=== PATIENT | male | born 1965 | race Caucasian/White ===

== ENCOUNTER 2019-09-30 15:03 | Inpatient (IN) | payer OTHER ==
[~2019-09-30] VITALS: Ht 167.6 cm; Wt 53.5 kg
--- NOTE | 2019-09-30 15:08 | NUR ---
ALEISHA HENSLEY FROM [facility] FOR SEVERE ANEMIA. H&H 6.0, TO ER BED 8, HOOKED TO MONITOR, PATIENT NOTED W TRACHEOSTOMY CONNECTED TO COOL AEROSOL AT 5LPM OF O2, O2 SATURATION AT 100%, WITH G-TUBE, WITH BELLAMY CATHETER, NOTED W R HAND 22G IV PERIOHERAL LINE, PATENT. PROVIDED W WARM BLANKET. DR BARCLAY AT BEDSIDE
--- NOTE | 2019-09-30 15:13 | NUR ---
CALLED FOR TELE BED AND SUBMITTED MOVE SHEET TO ADMITTING
[2019-09-30] MEDS ORDERED: PANTOPRAZOLE 40 MG VIAL ONE (15:22)
[2019-09-30 15:28] LABS: BASOPHILS % (AUTO) 0.2 % (0.0-2.0); EOSINOPHILS % (AUTO) 0.8 % (0.0-6.0); HEMATOCRIT 23 % (39-51); HEMOGLOBIN 7.2 g/dL (13.5-17.5); LYMPHOCYTES # (AUTO) 0.4 /CMM (0.8-4.8); LYMPHOCYTES % (AUTO) 4.3 % (20.0-44.0); MEAN CORPUSCULAR HGB CONC 31 g/dl (31.0-36.0); MEAN CORPUSCULAR VOLUME 87 fL (80-96); MONOCYTES # (AUTO) 0.4 /CMM (0.1-1.30); MONOCYTES % (AUTO) 4.1 % (2.0-12.0); NEUTROPHILS % (AUTO) 90.6 % (43.0-81.0); PLATELET COUNT (AUTO) 580 /CMM (150-450); RED BLOOD CELL COUNT(AUTO) 2.64 MIL/uL (4.5-6.0); WHITE BLOOD COUNT (AUTO) 8.8 K/uL (4.3-11.0)
[2019-09-30] MEDS ORDERED: IV NS 0.9% 500 ML BAG IV ONE (15:30)
[2019-09-30] MEDS ORDERED: PANTOPRAZOLE 40 MG VIAL IV ONE (15:30)
[2019-09-30 15:41] LABS: ALBUMIN 2.7 g/dL (3.4-5.0); BILIRUBIN,DIRECT 0.1 mg/dL (0.0-0.2); BILIRUBIN,TOTAL 0.4 mg/dL (0.2-1.0); CALCIUM, SERUM 9.7 mg/dL (8.5-10.1); CREATININE 2.7 mg/dL (0.6-1.3); POTASSIUM 4.5 mmol/L (3.5-5.1); TOTAL PROTEIN, SERUM 7.2 g/dL (6.4-8.2)
[2019-09-30] MEDS ORDERED: ACET325T53 GT (15:46)
[2019-09-30] MEDS ORDERED: CLON0.5T GT (15:46)
[2019-09-30] MEDS ORDERED: FOLI0.8T2 GT (15:46)
[2019-09-30] MEDS ORDERED: PRED5TAB48 GT (15:46)
[2019-09-30] MEDS ORDERED: FERR325T6 GT (15:46)
[2019-09-30] MEDS ORDERED: GABA250S GT (15:46)
[2019-09-30] MEDS ORDERED: LIDOCAINE PATCH TP (15:46)
[2019-09-30] MEDS ORDERED: AMIN887L GT (15:46)
[2019-09-30] MEDS ORDERED: NUT.237L67 GT (15:46)
[2019-09-30] MEDS ORDERED: TRAM50TA2 GT (15:46)
[2019-09-30] MEDS ORDERED: ACET-2605 GT (15:46)
[2019-09-30] MEDS ORDERED: DOCU50LI GT (15:46)
[2019-09-30] MEDS ORDERED: LABE200T5 GT (15:46)
[2019-09-30] MEDS ORDERED: ZINC220T4 GT (15:46)
[2019-09-30] MEDS ORDERED: ASCO500T10 GT (15:46)
[2019-09-30] MEDS ORDERED: EPOE40007 IJ (15:46)
[2019-09-30] MEDS ORDERED: MAGN400O6 GT (15:46)
[2019-09-30] MEDS ORDERED: SENN-261 GT (15:46)
[2019-09-30] MEDS ORDERED: IPRA4AER IH ×2 (15:46)
[2019-09-30] MEDS ORDERED: CYCL5.5D3 GT (15:46)
[2019-09-30] MEDS ORDERED: APIX2.5T GT (15:46)
[2019-09-30] MEDS ORDERED: BISA10SU61 RC (15:46)
[2019-09-30] MEDS ORDERED: CHLO473M2 MM (15:46)
[2019-09-30] MEDS ORDERED: NA P133E RC (15:46)
[2019-09-30] MEDS ORDERED: QUERCETIN GT (15:46)
[2019-09-30] MEDS ORDERED: LEVE1000 GT (15:46)
--- NOTE | 2019-09-30 15:57 | NUR ---
GOT BED 319 NURSE LUCILLE ROMERO
--- NOTE | 2019-09-30 15:58 | NUR ---
TELEPHONE CONSENT FROM BROTHER ARASH NG FOR BLOOD TRANSFUSION.
[2019-09-30] MEDS ORDERED: MAGNESIUM HYDROXIDE 30 ML UDC GT PRN (16:30)
[2019-09-30] MEDS ORDERED: MISCELLANEOUS MED 1 EA EA GT PRN (16:30)
[2019-09-30] MEDS ORDERED: MAGNESIUM HYDROXIDE 30 ML UDC PO PRN (16:30)
[2019-09-30] MEDS ORDERED: MAG HYDROX/AL HYDROX/SIMETH 30 ML UDC GT PRN (16:30)
[2019-09-30] MEDS ORDERED: NA PHOS,M-B/NA PHOS,DI-BA 1 EA ENEMA RC PRN ×2 (16:30→18:46)
[2019-09-30] MEDS ORDERED: HYDROCODONE/APAP 5/325MG 1 EACH TABLET PO PRN (16:30)
[2019-09-30] MEDS ORDERED: Z GUARD REMEDY 2 OZ OINT TP PRN (16:30)
[2019-09-30] MEDS ORDERED: Medication Not On Formulary EA (Ipratropium/Albuterol Sulfate (Combivent Respimat 20-100 IH PRN (16:30)
[2019-09-30] MEDS ORDERED: ONDANSETRON HCL/PF 4 MG/2 ML VIAL IVP PRN (16:30)
[2019-09-30] MEDS ORDERED: BISACODYL SUPP (10 MG) 10 MG/SUPP.RECT SUPP.RECT RC PRN (16:30)
[2019-09-30] MEDS ORDERED: ZOLPIDEM TARTRATE 5 MG TABLET PO PRN (16:30)
--- NOTE | 2019-09-30 16:40 | NUR ---
SPOKE TO ANYI (NURSE NUCLEAR POWERPLANT MECHANIC) OF [facility]. [phone]
--- NOTE | 2019-09-30 16:45 | NUR ---
REPORT GIVEN TO DINAH SALDANA OF TELE UNIT
[2019-09-30] MEDS: APIXABAN 2.5 MG TABLET GT SCH (17:00)
[2019-09-30 17:30] VITALS: BP 160/94
--- NOTE | 2019-09-30 17:30 | NUR ---
TELE/PRESCHOOL PROGRAM DIRECTOR NOTES Patient in bed, A&O x 1. Admitted for severe anemia (H/H 6.0/20 on 09/29/19) from [facility], under Dr. Granger Incomprehensible responses upon tactile and verbal stimulation. Tracheostomy noted, portex #7. Breathing non-labored and even on 5L oxygen, saturating well. No respiratory distress noted. On tele monitor, Sinus Bradycardia HR 52 noted. IV access noted on the right hand #22, infusing NS @75 ml/hr. 2nd IV access noted on the right AC #18 for blood transfusion, patent and intact, and flushing well. No cardiac distress at this time. G-tube in place, no gastric residual noted. Mccloud in place, draining clear yellow urine well. Skin assessment done, photos were placed in the chart. Stage 4 sacral ulcer noted POA, placed mepilex, C/D/I. Wound consult ordered. Closed AV shunt on the left upper arm with scarring noted, do not use BP on this arm. Per ED, patient not receiving HD at this time. Awaiting for blood transfusion orders. Will continue to monitor for any unstable conditions.
[2019-09-30] MEDS ORDERED: ACETAMINOPHEN 650 MG/20.3 ML UDC GT PRN (18:30)
[2019-09-30] MEDS ORDERED: LABETALOL HCL 200 MG TABLET GT SCH (18:49)
[2019-09-30] MEDS ORDERED: hydrALAZINE HCL IV 20 MG VIAL IV PRN (19:00)
--- NOTE | 2019-09-30 19:00 | NUR ---
TELE/RN CLOSING NOTES Patient in bed, A&O x 1. No s/s of pain/discomfort at this time. Breathing non-labored and even on 5L oxygen, saturating well, no SOB noted. Tracheostomy noted, portex #7. On tele monitor, Sinus Bradycardia HR 55 noted. IV access noted on the right hand #22, infusing NS @75 ml/hr. 2nd IV access noted on the right AC #18 for blood transfusion, patent and intact, and flushing well. No cardiac distress at this time. G-tube in place, patent and intact. Mccloud in place, draining clear yellow urine well, output of 500cc noted. Awaiting for blood transfusion orders. Will endorse to shift superintendent nurse.
--- NOTE | 2019-09-30 19:02 | NUR ---
HELD ELIQUIS DUE TO LOW HGB/HCT 7.05/30 AND IS FOR BLOOD TRANSFUSION.
[2019-09-30] MEDS: ASCORBIC ACID 500 MG TABLET GT SCH (19:28)
[2019-09-30] MEDS: CHLORHEXIDINE GLUCONATE 15 ML UDC MM SCH (19:28)
[2019-09-30] MEDS: TRAMADOL HCL 50 MG TABLET GT SCH (19:29)
[2019-09-30] MEDS ORDERED: IPRATROPIUM NEB FS 0.5 MG/2.5 ML AMPUL.NEB NEB PRN (19:30)
[2019-09-30] MEDS ORDERED: IPRATROPIUM NEB FS 0.5 MG/2.5 ML AMPUL.NEB NEB SCH (19:30)
[2019-09-30] MEDS ORDERED: ALBUTEROL FS 2.5 MG/0.5 ML VIAL.NEB NEB PRN (19:30)
[2019-09-30] MEDS ORDERED: ALBUTEROL FS 2.5 MG/0.5 ML VIAL.NEB NEB SCH (19:30)
[2019-09-30] MEDS ORDERED: Medication Not On Formulary EA (Ipratropium/Albuterol Sulfate (Combivent Respimat 20-100 IH SCH (19:30)
--- NOTE | 2019-09-30 19:30 | NUR ---
telephone order supervisor opening note received patient in bed. a/ox1. patient is very limited in speaking, only few words ( no and cold). on oxygen via t-piece at 5l/min. portex #7. respirations are even and unlabored. no s/s resp distress. no s/s pain at this time. iv access in right hand #22 running ns@75ml/hr. another iv access in rac#18 patent and saline locked. gtube is present, no residual, flushed with no resistance, currently not on tube feeding. pichardo catheter is present, draining to gravity, urine is yellow and clear. bed is low and locked, hob elevated in semi fowlers, side rials up x2. call light within reach. will continue to monitor.
--- NOTE | 2019-09-30 19:50 | NUR ---
TELEMARKETING SALES REPRESENTATIVE NOTE FOLLOWED UP WITH DR. LEUNG ABOUT MEDICATIONS THAT THE PHARMACY INFORMED THAT ARE NOT IN STOCK. CYCLOSPORINE/ CHONDROITIN DROPS WELL EPOEITIN (RETACRIT). DR. LEUNG INFORMED TO ASKED DR. FRYE ABOUT RECOMMENDATIONS AND THAT HE DID NOT ORDER RETACRIT. WILL CALL DR. FRYE TO FOLLOW UP.
[2019-09-30 20:00] VITALS: BP 136/70
--- NOTE | 2019-09-30 20:18 | NUR ---
RT NOTE PT RECEIVED TRACHED ON T-PIECE @ 40% 5LPM. PT AWAKE. SX DONE, SMALL THICK WHITE YELLOW SECRETIONS NOTED. CONT. PULSE OX CONNECTED. NO DISTRESS NOTED. WILL MONITOR CLOSELY. Addendum: 09/30/19 at 2019 by ZEHRA RAJAN RT Amended: Links added.
[2019-09-30] MEDS: LABETALOL HCL (100MG) 100 MG TABLET GT SCH (20:49)
--- NOTE | 2019-09-30 21:14 | NUR ---
teletype or varitype keyboard operator note called automotive service consultant md dr. jamie wilson and asked to change nebulizer treatments of atrovent and ventolin to MDI treatments d/t patient is from SNF and did not get tested for covid 19. there is a concern to spread of virus if patient dos have it. informed patient dx for severe anemia. md telephone order ok to change to MDI for atrovent and ventolin. order read back noted and carried out. will continue to monitor.
--- NOTE | 2019-09-30 22:31 | NUR ---
telemetry nurse note Dr. Rush called and was made aware of medications that we do not have stocked for cyclosporibe/ chlondritin drops and epoeitin (retacrit). MD telephone recommendation to call SNF and have them deliver the medications. will call SNF to provide medications. also informed Dr. Rush that there is a order for blood transfusion. Dr. Rush advised against blood transfusion d/t patient has not active bleeding, aware there is an order to OB stool collection, awaiting a bowel movement to collect. hemoglobin is not less than 7 and the kidney function is not the best with BUN 103 and creatinine 2.7. will call resolution specialist MD and inform of Dr. Rush recommendation for no blood transfusion. called resolution specialist MD Dr. Resendiz to inform him Dr. Rush does not recommend blood transfusion d/t kidney function being BUN 103 and creatinine 2.7. also hemoglobin is not less than 7. telephone order no transfusion at this time. order read back noted and carried out.
[2019-09-30] MEDS: SENNOSIDES 8.6 MG TABLET GT SCH (22:43)
[2019-09-30] MEDS: clonazePAM 0.5 MG TABLET GT SCH (22:43)
[2019-10-01] VITALS (11 sets, daily range): BP systolic 135–160; BP diastolic 59–94
[2019-10-01] MEDS: NITROGLYCERIN 30 GM TUBE TP SCH ×4 (01:08→17:41)
[2019-10-01] MEDS ORDERED: IPRATROPIUM NEB FS 0.5 MG/2.5 ML AMPUL.NEB INH SCH (01:30)
[2019-10-01] MEDS: IPRATROPIUM BROMIDE 14 GM INHALER (or 12.9 GM) IH SCH ×3 (01:30→13:30)
[2019-10-01] MEDS ORDERED: ALBUTEROL FS 2.5 MG/0.5 ML VIAL.NEB IH SCH (01:30)
--- NOTE | 2019-10-01 01:34 | NUR ---
television news producer note Called [facility] to inform them Dr. Rush would like delivery of the medications: cyclosporine as well as retacrit. Spoke with SHANA Mcmahon. states they monica briones. will have next shift nurse follow up.
--- NOTE | 2019-10-01 01:53 | NUR ---
telegraph dispatcher note called nursing miller supervisor to provide medications ipratropium inhaler but nursing miller supervisor stated we do not carry in night locker. nonadministered throughout night. will continue to monitor.
[2019-10-01] MEDS: NEPRO 1,000 ML BOTTLE GT PRN (01:55)
--- NOTE | 2019-10-01 01:59 | NUR ---
RT NOTE MDI TX NOT AVAILABLE. RN ALISHA CELESTIN.
[2019-10-01] MEDS: clonazePAM 0.5 MG TABLET GT SCH ×3 (05:04→21:13)
--- NOTE | 2019-10-01 06:18 | NUR ---
television operator closing note patient in bed. a/ox1. remains on oxygen via t-piece at 5l/min. portex #7. respirations are even and unlabored. no resp distress noted. continous pulse ox at bedside. no s/s pain. iv access maintained in right hand #22 running ns@75ml/hr. another iv access in rac#18 patent and saline locked. gtube is running nepro @45ml/hr. pichardo catheter is maintained, output 1400ml. bed remains low and locked, hob elevated in semi fowlers, side rials up x2. call light within reach. will endorse to next shift
--- NOTE | 2019-10-01 07:21 | NUR ---
PRICING DIRECTOR OPENING NOTES RECEIVED PATIENT IN BED, ASLEEP. PATIENT ON OXYGEN VIA T-PIECE AT 5 LPM; PORTEX # 7. BREATHING IS EVEN AND UNLABORED; NO SOB PRESENT AT THIS TIME. NO S/S OF PAIN SUCH MOANING, FACIAL GRIMACING OR GUARDING. EXTERNAL [employer]CRE[employer] WITH A CURRENT READING OF NORMAL SINUS RHYTHM AT 62 BPM. R HAND IV ACCESS G # 22 INFUSING NS AT 75 MLS/HR AND RAC G#18 PRESENT AND INTACT. BELLAMY CATH IN PLACE DRAINING YELLOW URINE. G-TUBE INTACT INFUSING NEPHRO AT 45 MLS/HR. SAFETY PRECAUTIONS IN PLACE; BED IN LOW POSITION AND LOCKED, RAILS UP X2, CALL LIGHT WITHIN REACH. WILL CONTINUE TO MONITOR PATIENT.
[2019-10-01] MEDS: predniSONE 5 MG TABLET GT SCH (08:27)
[2019-10-01] MEDS: PANTOPRAZOLE 40 MG VIAL IV SCH (08:27)
[2019-10-01] MEDS: DOCUSATE SODIUM LIQ 100 MG/10 ML UDC GT SCH (08:27)
[2019-10-01] MEDS: TRAMADOL HCL 50 MG TABLET GT SCH ×2 (08:27→16:47)
[2019-10-01] MEDS: ASCORBIC ACID 500 MG TABLET GT SCH ×2 (08:27→16:47)
[2019-10-01] MEDS: LEVETIRACETAM SOL (5 ML) 100 MG/ML UDC GT SCH (08:27)
[2019-10-01] MEDS: ZINC SULFATE 220 MG CAPSULE GT SCH (08:27)
[2019-10-01] MEDS: VIT B CMPLX 3/FA/VIT C/BIOTIN 1 TAB TABLET GT SCH (08:27)
[2019-10-01] MEDS: CHLORHEXIDINE GLUCONATE 15 ML UDC MM SCH ×2 (08:28→16:47)
[2019-10-01] MEDS: APIXABAN 2.5 MG TABLET GT SCH ×2 (08:28→16:53)
[2019-10-01] MEDS: PROSOURCE / PROSTAT (PYXIS) 30 ML UDC GT SCH (08:28)
[2019-10-01] MEDS: LABETALOL HCL (100MG) 100 MG TABLET GT SCH ×2 (08:28→16:50)
[2019-10-01 09:09] LABS: CALCIUM, SERUM 9.1 mg/dL (8.5-10.1); CREATININE 2.4 mg/dL (0.6-1.3); MAGNESIUM 3.2 mg/dL (1.8-2.4); PHOSPHORUS 4.8 mg/dL (2.5-4.9); POTASSIUM 3.8 mmol/L (3.5-5.1)
[2019-10-01 09:11] LABS: BASOPHILS # (AUTO) 0.1 /CMM (0.0-0.2); BASOPHILS % (AUTO) 0.6 % (0.0-2.0); EOSINOPHILS % (AUTO) 3.6 % (0.0-6.0); HEMATOCRIT 22 % (39-51); LYMPHOCYTES # (AUTO) 0.7 /CMM (0.8-4.8); LYMPHOCYTES % (AUTO) 8.8 % (20.0-44.0); MEAN CORPUSCULAR HGB CONC 31 g/dl (31.0-36.0); MEAN CORPUSCULAR VOLUME 88 fL (80-96); MONOCYTES # (AUTO) 0.8 /CMM (0.1-1.30); MONOCYTES % (AUTO) 10.3 % (2.0-12.0); NEUTROPHILS % (AUTO) 76.7 % (43.0-81.0); PLATELET COUNT (AUTO) 592 /CMM (150-450); RED BLOOD CELL COUNT(AUTO) 2.54 MIL/uL (4.5-6.0); WHITE BLOOD COUNT (AUTO) 7.9 K/uL (4.3-11.0)
[2019-10-01 09:15] LABS: HEMOGLOBIN 6.9 g/dL (13.5-17.5)
--- NOTE | 2019-10-01 09:22 | NUR ---
MS RN NOTES RECEIVED CALL FROM LAB WITH A HGB CRITICAL LAB VALUE OF 6.[address] LEUNG WILL TRANSFUSE 1 UNIT OF PRBC.
[2019-10-01] MEDS: IV NS 0.9% 1,000 ML IV PRN (09:26)
--- NOTE | 2019-10-01 09:27 | NUR ---
WOUND CARE CONSULT: PT PRESENTS WITH SACRAL STAGE 4 ULCER, SCARRING TO BUTTOCKS AND SCARRING TO FEET FROM AMPUTATION, PRESENT ON ADMISSION. RECOMMEND SURGICAL CONSULT. DR GERARD TENORIO NOTIFIED OF CONSULT REQUEST. RECOMMENDATIONS MADE FOR SKIN PROTECTION AND WOUND CARE. WILL SEE PRN. SARAVIA IN AGREEMENT WITH PLAN OF CARE. PT IS ON BC ISOFLEX LOW AIRLOSS BED. Addendum: 10/01/19 at 0930 by JEAN MARIE ALVARADO WNDNU Amended: Links added.
[2019-10-01] MEDS ORDERED: Z GUARD REMEDY 2 OZ OINT TP PRN (09:30)
[2019-10-01] MEDS: DAKINS QUARTER STRENGTH (0.125%) 480 ML BOTTLE TOP SCH (10:14)
[2019-10-01] MEDS: Z GUARD REMEDY 2 OZ OINT TP SCH (10:14)
--- NOTE | 2019-10-01 10:28 | NUR ---
MS RN NOTES BLOOD TRANSFUSION STARTED. PRE BLOOD TR. VS B/P 139/77, HR 76, TEMP 99, RESP 18, O2 100 WILL CONTINUE TO MONITOR
[2019-10-01 12:14] LABS: EOSINOPHILS % (MANUAL) 3 % (0-4); LYMPHOCYTES % (MANUAL) 8 % (16-48); MONOCYTES % (MANUAL) 10 % (0-11.0); NEUTROPHILS % (MANUAL) 79 (42-76)
[2019-10-01] MEDS: ALBUTEROL FS 2.5 MG/0.5 ML VIAL.NEB NEB SCH ×3 (13:22→19:17)
[2019-10-01] MEDS: GABAPENTIN 300 MG CAPSULE GT SCH (13:35)
--- NOTE | 2019-10-01 13:58 | NUR ---
MS RN NOTES TRANSFUSION ENDED. PATIENT TOLERATED WELL WITH NO ADVERSE REACTIONS. VS LARONL. PER CHARGE NURSE PATIENT CARE WILL BE TRANSFERRED TO SHANA GILLESPIE.
--- NOTE | 2019-10-01 14:00 | NUR ---
Received patient reported by Lotus SALDANA, pt done for RBC transfusion x 1, in stable condition.
[2019-10-01] MEDS: EPOETIN ALFA (4000 UNIT) 4,000 UNIT/ML VIAL SQ SCH (17:40)
--- NOTE | 2019-10-01 18:15 | NUR ---
MS/RN Closing note Patient in bed comfortably, denies pain or discomfort. Pt received RBC one unit, no s/s of reaction observed. Respiratory even and unlabored with oxygen T-piece at 5LPM. Skin is warm to touch, intact IV site, changed dressing on sacral, and suction/oral care provided. Keep bed in lock with elevated HOB for secure airway and aspiration precaution. Call light within reach, will endorse police shift commander.
[2019-10-01 18:52] LABS: THYROID STIMULATING HORMONE 2.598 uIU/mL (0.358-3.74)
[2019-10-01] MEDS: IPRATROPIUM NEB FS 0.5 MG/2.5 ML AMPUL.NEB NEB SCH (19:17)
--- NOTE | 2019-10-01 20:00 | NUR ---
MS RN OPENING NOTES RECEIVED PATIENT IN BED, A/O X1, CAN SAY SOME WORDS, 02 @ 5LPM VIA T-PIECE, NO SIGNS OF RESPIRATORY DISTRESS, GT-NEPHRO @ 45ML/HR, RIGHT HAND #22 NS @75ML/HR, BELLAMY CATH ATTACHED WITH YELLOWISH COLORED URINE, SIDE RAILS UP.
[2019-10-01] MEDS: SENNOSIDES 8.6 MG TABLET GT SCH (21:13)
[2019-10-01] MEDS: cycloSPORINE SOLUTION 500 MG/5 ML UDC GT SCH (21:13)
[2019-10-02] MEDS: NITROGLYCERIN 30 GM TUBE TP SCH ×4 (00:27→17:40)
[2019-10-02] MEDS: IV NS 0.9% 1,000 ML IV PRN ×2 (00:47→17:54)
[2019-10-02] MEDS: ALBUTEROL FS 2.5 MG/0.5 ML VIAL.NEB NEB SCH ×4 (00:58→19:36)
[2019-10-02] MEDS: IPRATROPIUM NEB FS 0.5 MG/2.5 ML AMPUL.NEB NEB SCH ×4 (00:58→19:36)
[2019-10-02] MEDS: clonazePAM 0.5 MG TABLET GT SCH ×3 (04:04→21:30)
[2019-10-02] MEDS: NEPRO 1,000 ML BOTTLE GT PRN (04:40)
--- NOTE | 2019-10-02 06:28 | NUR ---
MS RN CLOSING NOTES ENDORSED PATIENT IN BED, A/O X1, CAN SAY SOME WORDS, 02 @ 5LPM VIA T-PIECE, NO SIGNS OF RESPIRATORY DISTRESS, GT-NEPHRO @ 45ML/HR, RIGHT HAND #22 NS @75ML/HR INFUSING WELL, NO REDNESS OR INFILTRATION NOTED, BELLAMY CATH ATTACHED WITH YELLOWISH COLORED URINE, SIDE RAILS UP FOR SAFETY.
--- NOTE | 2019-10-02 07:20 | NUR ---
M/S RN NOTES PATIENT IN NO RESPIRATORY DISTRESS, ON MECH VENT WITH PRESCRIBED SETTINGS. PATIENT WITH NO S/S OF DISCOMFORT OR PAIN AT THIS TIME. SKIN WARM TO TOUCH, IV ACCESS SITES INTACT AND PATENT. GT INTACT AND PATENT, CLAMPED. F/C INTACT AND DRAINING YELLOW URINE. PATIENT'S NEEDS ATTENDED, BED ON LOWEST LOCKED PSITION, CALL LIGHT WITHIN REACH. WILL CONTINUE TO MONITOR.
[2019-10-02 08:00] VITALS: BP 149/78
[2019-10-02] MEDS: PANTOPRAZOLE 40 MG VIAL IV SCH (08:54)
[2019-10-02] MEDS: DOCUSATE SODIUM LIQ 100 MG/10 ML UDC GT SCH (08:54)
[2019-10-02] MEDS: CHLORHEXIDINE GLUCONATE 15 ML UDC MM SCH ×2 (08:54→17:26)
[2019-10-02] MEDS: ZINC SULFATE 220 MG CAPSULE GT SCH (08:55)
[2019-10-02] MEDS: VIT B CMPLX 3/FA/VIT C/BIOTIN 1 TAB TABLET GT SCH (08:55)
[2019-10-02] MEDS: ASCORBIC ACID 500 MG TABLET GT SCH ×2 (08:55→17:24)
[2019-10-02] MEDS: LEVETIRACETAM SOL (5 ML) 100 MG/ML UDC GT SCH (08:55)
[2019-10-02] MEDS: LABETALOL HCL (100MG) 100 MG TABLET GT SCH ×2 (08:55→17:25)
[2019-10-02] MEDS: TRAMADOL HCL 50 MG TABLET GT SCH ×2 (08:56→17:26)
[2019-10-02] MEDS: predniSONE 5 MG TABLET GT SCH (08:56)
[2019-10-02] MEDS: PROSOURCE / PROSTAT (PYXIS) 30 ML UDC GT SCH (08:57)
[2019-10-02] MEDS: Z GUARD REMEDY 2 OZ OINT TP SCH (08:57)
[2019-10-02] MEDS: DAKINS QUARTER STRENGTH (0.125%) 480 ML BOTTLE TOP SCH (09:00)
[2019-10-02] MEDS: APIXABAN 2.5 MG TABLET GT SCH ×2 (09:00→17:00)
[2019-10-02] MEDS: cycloSPORINE SOLUTION 500 MG/5 ML UDC GT SCH ×2 (09:11→21:32)
[2019-10-02 09:53] LABS: BASOPHILS # (AUTO) 0.1 /CMM (0.0-0.2); BASOPHILS % (AUTO) 0.8 % (0.0-2.0); EOSINOPHILS % (AUTO) 5.2 % (0.0-6.0); HEMATOCRIT 25 % (39-51); HEMOGLOBIN 7.6 g/dL (13.5-17.5); LYMPHOCYTES # (AUTO) 0.9 /CMM (0.8-4.8); LYMPHOCYTES % (AUTO) 10.7 % (20.0-44.0); MEAN CORPUSCULAR HGB CONC 31 g/dl (31.0-36.0); MEAN CORPUSCULAR VOLUME 88 fL (80-96); MONOCYTES # (AUTO) 0.9 /CMM (0.1-1.30); MONOCYTES % (AUTO) 11.7 % (2.0-12.0); NEUTROPHILS # (AUTO) 5.8 /CMM (1.8-8.9); NEUTROPHILS % (AUTO) 71.6 % (43.0-81.0); PLATELET COUNT (AUTO) 511 /CMM (150-450); RED BLOOD CELL COUNT(AUTO) 2.81 MIL/uL (4.5-6.0); WHITE BLOOD COUNT (AUTO) 8.1 K/uL (4.3-11.0)
[2019-10-02 10:04] LABS: CALCIUM, SERUM 8.9 mg/dL (8.5-10.1); CREATININE 2.1 mg/dL (0.6-1.3)
[2019-10-02 12:16] LABS: IMMUNOGLOBULIN A, SERUM 333 mg/dL (90-386); IMMUNOGLOBULIN G, SERUM 1132 mg/dL (603-1613); IMMUNOGLOBULIN M, SERUM 58 mg/dL (20-172)
[2019-10-02 16:00] VITALS: BP 156/79
--- NOTE | 2019-10-02 17:45 | NUR ---
M/S RN NOTES PATIENT'S ELIQUIS NOT GIVEN DUE TO LOW HGB.
--- NOTE | 2019-10-02 18:52 | NUR ---
M/S RN NOTES PATIENT IN NO RESPIRATORY DISTRESS, ON MECH VENT WITH PRESCRIBED SETTINGS. PATIENT WITH NO S/S OF DISCOMFORT OR PAIN AT THIS TIME. SKIN WARM TO TOUCH, IV ACCESS SITES INTACT AND PATENT, IV NS RUNNING AT 75ML/HR. GT INTACT AND PATENT, CLAMPED. F/C INTACT AND DRAINING YELLOW URINE. PATIENT'S NEEDS ATTENDED, BED ON LOWEST LOCKED PSITION, CALL LIGHT WITHIN REACH. WILL ENDORSE TO ONCOMING NURSE.
--- NOTE | 2019-10-02 19:25 | NUR ---
MS RN NOTES PATIENT RECEIVED IN BED RESTING, ALERT AND ORIENTED X 1, AWAKEN BY LIGHT TOUCH AND NAME. ON OXYGEN 5L, TOLERATING SETTING WITH NO SIGNS OF SOB, WITH EVEN NON-LABORED BREATHING. PATIENT IV ACCESS INTACT, WITH NORMAL SALINE INFUSING AT 75ml/hr. SKIN WARM AND DRY TO TOUCH. BELLAMY CATHETER INTACT AND IN PLACE. G-TUBE FEEDING IN PLACE AND INFUSING NEPRO 45ml/hr. PATIENT PRESENTS WITH NO PAIN AND DISCOMFORT AT THIS TIME. SAFETY PRECAUTIONS IMPLEMENTED WITH BED LOCKED, BED IN THE LOWEST POSITION, BILATERAL SIDE RAILS UP, AND CALL LIGHT WITHIN EASY REACH OF THE PATIENT. WILL CONTINUE TO MONITOR PATIENT.
[2019-10-02 20:23] VITALS: BP 152/79
[2019-10-02] MEDS: SENNOSIDES 8.6 MG TABLET GT SCH (21:32)
[2019-10-03] MEDS: NITROGLYCERIN 30 GM TUBE TP SCH ×5 (00:27→23:32)
[2019-10-03] MEDS: ALBUTEROL FS 2.5 MG/0.5 ML VIAL.NEB NEB SCH ×4 (01:48→19:30)
[2019-10-03] MEDS: IPRATROPIUM NEB FS 0.5 MG/2.5 ML AMPUL.NEB NEB SCH ×4 (01:48→19:30)
[2019-10-03] MEDS: clonazePAM 0.5 MG TABLET GT SCH ×3 (05:23→21:26)
[2019-10-03] MEDS: IV NS 0.9% 1,000 ML IV PRN ×2 (05:23→18:24)
[2019-10-03 06:29] LABS: BASOPHILS % (AUTO) 0.5 % (0.0-2.0); EOSINOPHILS % (AUTO) 4.2 % (0.0-6.0); HEMATOCRIT 24 % (39-51); HEMOGLOBIN 7.8 g/dL (13.5-17.5); LYMPHOCYTES # (AUTO) 0.8 /CMM (0.8-4.8); LYMPHOCYTES % (AUTO) 8.7 % (20.0-44.0); MEAN CORPUSCULAR HGB CONC 32 g/dl (31.0-36.0); MEAN CORPUSCULAR VOLUME 88 fL (80-96); MONOCYTES # (AUTO) 0.9 /CMM (0.1-1.30); MONOCYTES % (AUTO) 10.1 % (2.0-12.0); NEUTROPHILS # (AUTO) 6.9 /CMM (1.8-8.9); NEUTROPHILS % (AUTO) 76.5 % (43.0-81.0); PLATELET COUNT (AUTO) 531 /CMM (150-450); RED BLOOD CELL COUNT(AUTO) 2.78 MIL/uL (4.5-6.0)
[2019-10-03 06:42] LABS: CALCIUM, SERUM 8.7 mg/dL (8.5-10.1); CREATININE 2.3 mg/dL (0.6-1.3); MAGNESIUM 2.8 mg/dL (1.8-2.4); PHOSPHORUS 3.8 mg/dL (2.5-4.9)
--- NOTE | 2019-10-03 06:51 | NUR ---
MS RN NOTES PATIENT IN BED RESTING COMFORTABLY. ON ISOLATION PRECAUTION FOR RULE OUT COVID. T-PIECE IN PLACE, TOLERATING 5L WITH NO SIGNS OF SOB NOTED AT THIS TIME, WITH EVEN NON-LABORED BREATHING, SPO2 CURRENTLY 100%. PATIENT REMOVED IV ACCESS, CATHETER TIP IN PLACE, APPLIED PRESSURE TO SITE. G-TUBE FEEDING IN PLACE, NO RESIDUAL, INFUSING AT 45ml/hr. PROVIDED COMFORT MEASURES TO PATIENT. PATIENT PRESENTS WITH NO PAIN OR DISCOMFORT. SAFETY PRECAUTIONS IN PLACE, WITH BED LOCKED, BED ALARM ON, BILATERAL SIDE RAILS UP, AND CALL LIGHT WITHIN EASY REACH OF THE PATIENT. WILL ENDORSE PLAN OF CARE TO UPCOMING DAYSHIFT NURSE.
--- NOTE | 2019-10-03 07:03 | NUR ---
MS RN OPENING NOTES RECEIVED PT AWAKE IN BED AT THIS TIME. A/O X1 . NO SOB NOTED. NO S/S OF ANY ACUTE DISTRESS, NO C/O PAIN AT THIS TIME. RESPIRATIONS EVEN AND UNLABORED . NO IV ACCESS NOTED. PER MANAGER GROUP HOME NURSE, PT PULLED OUT IV AND REINSERTION WAS UNSUCCESSFUL. BELLAMY CATHETER IN PLACE DRAINING TO GRAVITY CLEAR YELLOW URINE OUTPUT. G-TUBE FEEDING IN PLACE, PATENT WITH NO RESIDUAL NOTED. TRACH IN PLACE. SAFETY PRECAUTIONS IN PLACE.BED IN LOWEST LOCKED POSITION, HOB ELEVATED TO SEMI FOWLERS POSITION, SIDE RAILS UP X2, BED ALARM ON, CALL LIGHTS WITHIN REACH. WILL CONTINUE TO MONITOR
[2019-10-03] MEDS: NEPRO 1,000 ML BOTTLE GT PRN (07:39)
[2019-10-03 08:00] VITALS: BP 162/74
--- NOTE | 2019-10-03 08:10 | NUR ---
RT RECEIVED PT CHRONIC TX ON INLINE O2 5L. PT SPO2 AND HR WITHIN NORMAL LIMITS. PT IS R/O COVID AT THE MOMENT, RESULTS ARE PENDING. PER COVID 19 PROTOCOL. NO AEROSOLIZED TX GIVEN TILL RESULTS ARE BACK. SX WITH MOD THK WHITE SECRETIONS. TRACH IS INTACT. NO RESP DISTESS OR SOB NOTED. WILL CONTINUE TO MONITOR T/O SHIFT.
--- NOTE | 2019-10-03 09:40 | NUR ---
STOOL SPECIMEN COLLECTED FOR OCCULT BLOOD AND SEND TO PER DOCTOR LEUNG'S ORDER. WILL CONTINUE TO MONITOR
[2019-10-03] MEDS: CHLORHEXIDINE GLUCONATE 15 ML UDC MM SCH ×2 (09:45→16:29)
[2019-10-03] MEDS: DOCUSATE SODIUM LIQ 100 MG/10 ML UDC GT SCH (09:45)
[2019-10-03] MEDS: TRAMADOL HCL 50 MG TABLET GT SCH ×2 (09:46→16:29)
[2019-10-03] MEDS: VIT B CMPLX 3/FA/VIT C/BIOTIN 1 TAB TABLET GT SCH (09:46)
[2019-10-03] MEDS: ASCORBIC ACID 500 MG TABLET GT SCH ×2 (09:46→16:29)
[2019-10-03] MEDS: LEVETIRACETAM SOL (5 ML) 100 MG/ML UDC GT SCH (09:46)
[2019-10-03] MEDS: LABETALOL HCL (100MG) 100 MG TABLET GT SCH ×2 (09:47→16:34)
[2019-10-03] MEDS: ZINC SULFATE 220 MG CAPSULE GT SCH (09:47)
[2019-10-03] MEDS: cycloSPORINE SOLUTION 500 MG/5 ML UDC GT SCH ×2 (09:48→21:26)
[2019-10-03] MEDS: DAKINS QUARTER STRENGTH (0.125%) 480 ML BOTTLE TOP SCH (09:48)
[2019-10-03] MEDS: Z GUARD REMEDY 2 OZ OINT TP SCH (09:48)
[2019-10-03] MEDS: PROSOURCE / PROSTAT (PYXIS) 30 ML UDC GT SCH (09:50)
[2019-10-03] MEDS: APIXABAN 2.5 MG TABLET GT SCH ×2 (09:50→16:29)
[2019-10-03] MEDS: predniSONE 5 MG TABLET GT SCH (09:53)
[2019-10-03] MEDS: PANTOPRAZOLE 40 MG VIAL IV SCH (10:52)
--- NOTE | 2019-10-03 11:00 | NUR ---
NEW IV ACCESS INSERTED ON RIGHT HAND G#22, INTACT, PATENT AND FLUSHING WELL. WILL CONTINUE TO MONITOR
[2019-10-03 11:23] LABS: OCCULT BLOOD STOOL NEGATIVE (NEGATIVE)
[2019-10-03 16:00] VITALS: BP 137/81
--- NOTE | 2019-10-03 18:49 | NUR ---
MS RN CLOSING NOTES PT AWAKE IN BED AT THIS TIME. A/O X1 . PT REMAINED STABLE THROUGHOUT SHIFT. ALL NEEDS, CARE, WOUND TREATMENT AND MEDICATIONS ADMINISTERED ANTICIPATED PER ORDER. PT KEPT CLEAN AND DRY. BELLAMY CATHETER IN PLACE DRAINING TO GRAVITY CLEAR YELLOW URINE OUTPUT OF 650ML. G-TUBE FEEDING IN PLACE, PATENT AND PT IS TOLERATING WELL WITH NO RESIDUAL NOTED. T-PIECE TRACH CARE PROVIDED AND TRACH TIE CHANGED. PT SUCTIONED NEEDED.PT REPOSITIONED Q2HRS, PRN AND PER PROTOCOL. ASPIRATION AND SAFETY PRECAUTIONS IN PLACE. BED IN LOWEST LOCKED POSITION, HOB ELEVATED TO 40 DEGREES POSITION, SIDE RAILS UP X2 AND PADDED, BED ALARM ON, CALL LIGHTS WITHIN REACH. WILL ENDORSE TO ZONE MANAGER NURSE FOR LEVI
--- NOTE | 2019-10-03 19:30 | NUR ---
MS RN NOTES PATIENT RECEIVED IN BED SLEEPING, EASILY AWAKEN BY NAME AND LIGHT TOUCH, ALERT AND ORIENTED X 1. NO RESPIRATORY DISTRESS NOTED AT THIS TIME, TOLERATING 5L, WITH SPO2 AT 100%. PATIENT IV ACCESS INTACT AND PATENT, INFUSING NORMAL SALINE AT 75ml/hr. G-TUBE FEEDING IN PLACE AND INFUSING 45ml/hr. BELLAMY CATHETER IN PLACE. PROVIDED COMFORT MEASURES TO PATIENT, NO DISTRESS OR DISCOMFORT AT THIS TIME. SAFETY PRECAUTIONS IMPLEMENTED WITH BED LOCKED, BED IN THE LOWEST POSITION, BILATERAL SIDE RAILS UP, HOB IN 40 DEGREES, AND CALL LIGHT WITHIN EASY REACH OF THE PATIENT. WILL CONTINUE TO MONITOR PATIENT.
--- NOTE | 2019-10-03 19:33 | NUR ---
PER COVID PROTOCOL, NO IN-LINE TREATMENTS GIVEN UNTIL RESULT IS AVAILABLE. Addendum: 10/03/19 at 1933 by JIMMY NOEL RT Amended: Links added.
[2019-10-03 20:00] VITALS: BP 151/80
[2019-10-03] MEDS: SENNOSIDES 8.6 MG TABLET GT SCH (21:26)
[2019-10-04] MEDS: IPRATROPIUM NEB FS 0.5 MG/2.5 ML AMPUL.NEB NEB SCH ×4 (01:25→19:30)
[2019-10-04] MEDS: ALBUTEROL FS 2.5 MG/0.5 ML VIAL.NEB NEB SCH ×4 (01:25→19:30)
--- NOTE | 2019-10-04 01:27 | NUR ---
PER COVID PROTOCOL, NO IN-LINE TREATMENT GIVEN UNTIL RESULT IS AVAILABLE. Addendum: 10/04/19 at 0128 by JIMMY NOEL RT Amended: Links added.
[2019-10-04] MEDS: IV NS 0.9% 1,000 ML IV PRN (05:06)
[2019-10-04] MEDS: clonazePAM 0.5 MG TABLET GT SCH ×3 (05:06→21:05)
[2019-10-04] MEDS: NITROGLYCERIN 30 GM TUBE TP SCH ×3 (05:24→17:01)
--- NOTE | 2019-10-04 06:24 | NUR ---
MS RN NOTES PATIENT IN BED RESTING COMFORTABLY, AWAKEN BY NAME. TOLERATING T-PIECE, 5 LITERS, WITH NON-LABORED BREATHING, SPO2 100% AND NO RESPIRATORY DISTRESS AT THIS TIME. SKIN KEPT CLEAN AND DRY. IMPLEMENTED WOUND CARE. PATIENT PRESENTS NO SIGN OF PAIN OR DISCOMFORT AT THIS TIME. BELLAMY CATHETER IN PLACE. G-TUBE FEEDING IN PLACE, PATENT, AND INFUSING AT 45ml/hr. IV ACCESS INTACT AND PATENT. ASPIRATION AND SAFETY PRECAUTIONS IN PLACE WITH THE BED IN LOWEST LOCKED POSITION, HOB ELEVATED at 40 DEGREES, BED LOCKED, BILATERAL SIDE RAILS UP AND PADDED, BED ALARM ON, CALL LIGHTS WITHIN REACH. WILL ENDORSE PLAN OF CARE TO UPCOMING DAYSHIFT NURSE.
[2019-10-04 08:00] VITALS: BP 178/87
[2019-10-04 09:20] LABS: BASOPHILS % (AUTO) 0.5 % (0.0-2.0); EOSINOPHILS % (AUTO) 6.8 % (0.0-6.0); HEMATOCRIT 26 % (39-51); HEMOGLOBIN 8.2 g/dL (13.5-17.5); LYMPHOCYTES % (AUTO) 12.6 % (20.0-44.0); MEAN CORPUSCULAR HGB CONC 31 g/dl (31.0-36.0); MEAN CORPUSCULAR VOLUME 89 fL (80-96); MONOCYTES # (AUTO) 0.7 /CMM (0.1-1.30); MONOCYTES % (AUTO) 9.2 % (2.0-12.0); NEUTROPHILS # (AUTO) 5.7 /CMM (1.8-8.9); NEUTROPHILS % (AUTO) 70.9 % (43.0-81.0); PLATELET COUNT (AUTO) 531 /CMM (150-450); RED BLOOD CELL COUNT(AUTO) 2.94 MIL/uL (4.5-6.0); WHITE BLOOD COUNT (AUTO) 8.1 K/uL (4.3-11.0)
[2019-10-04] MEDS: LEVETIRACETAM SOL (5 ML) 100 MG/ML UDC GT SCH (09:33)
[2019-10-04] MEDS: DOCUSATE SODIUM LIQ 100 MG/10 ML UDC GT SCH (09:33)
[2019-10-04] MEDS: ASCORBIC ACID 500 MG TABLET GT SCH ×2 (09:33→16:34)
[2019-10-04] MEDS: VIT B CMPLX 3/FA/VIT C/BIOTIN 1 TAB TABLET GT SCH (09:34)
[2019-10-04] MEDS: LABETALOL HCL (100MG) 100 MG TABLET GT SCH ×2 (09:34→16:34)
[2019-10-04] MEDS: TRAMADOL HCL 50 MG TABLET GT SCH ×2 (09:34→16:34)
[2019-10-04] MEDS: APIXABAN 2.5 MG TABLET GT SCH ×2 (09:34→16:35)
[2019-10-04] MEDS: CHLORHEXIDINE GLUCONATE 15 ML UDC MM SCH ×2 (09:34→16:34)
[2019-10-04] MEDS: PANTOPRAZOLE 40 MG VIAL IV SCH (09:35)
[2019-10-04] MEDS: cycloSPORINE SOLUTION 500 MG/5 ML UDC GT SCH ×2 (09:38→21:05)
[2019-10-04] MEDS: predniSONE 5 MG TABLET GT SCH (09:38)
[2019-10-04] MEDS: ZINC SULFATE 220 MG CAPSULE GT SCH (09:38)
[2019-10-04] MEDS: PROSOURCE / PROSTAT (PYXIS) 30 ML UDC GT SCH (09:42)
[2019-10-04] MEDS: DAKINS QUARTER STRENGTH (0.125%) 480 ML BOTTLE TOP SCH (09:43)
[2019-10-04 09:44] LABS: CALCIUM, SERUM 9.2 mg/dL (8.5-10.1); CREATININE 2.1 mg/dL (0.6-1.3); POTASSIUM 3.5 mmol/L (3.5-5.1)
[2019-10-04] MEDS: Z GUARD REMEDY 2 OZ OINT TP SCH (09:44)
[2019-10-04] MEDS: GABAPENTIN 300 MG CAPSULE GT SCH (12:18)
[2019-10-04] MEDS: NEPRO 1,000 ML BOTTLE GT PRN (12:24)
[2019-10-04] MEDS: EPOETIN ALFA (4000 UNIT) 4,000 UNIT/ML VIAL SQ SCH (15:22)
[2019-10-04 16:00] VITALS: BP 155/80
[2019-10-04 16:07] LABS: *SPE A/G RATIO 0.8 (0.7-1.7); *SPE ALBUMIN 2.8 g/dL (2.9-4.4); *SPE ALPHA-1-GLOBULIN 0.4 g/dL (0.0-0.4); *SPE ALPHA-2-GLOBULIN 0.8 g/dL (0.4-1.0); *SPE BETA GLOBULIN 1.3 g/dL (0.7-1.3); *SPE GLOBULIN, TOTAL 3.5 g/dL (2.2-3.9); *SPE M-SPIKE Not Observed g/dL (Not Observed); *SPEGAMMA GLOBULIN 1.1 g/dL (0.4-1.8)
[2019-10-04] MEDS: IV 1/2NS 1000 ML 1,000 ML IV SCH (17:54)
--- NOTE | 2019-10-04 18:33 | NUR ---
PATIENT IN BED RESTING COMFORTABLY. ON ISOLATION PRECAUTION FOR RULE OUT COVID. T-PIECE IN PLACE,ON 5L, BREATHING EVEN NON-LABORED. G-TUBE FEEDING IN PLACE, NO RESIDUAL, ONGOING NEPRO @ 45ml/hr. ALL NEEDS ATTENDED. SACRAL WOUND CARE ORDERED, PATIENT KEPT CLEAN AND DRY. SAFETY PRECAUTIONS IN PLACE, WITH BED LOCKED, BED ALARM ON, BILATERAL SIDE RAILS UP. WILL ENDORSE TO UPCOMING NURSE FOR LEVI.
--- NOTE | 2019-10-04 19:09 | NUR ---
MS RN NOTES PATIENT RECEIVED IN BED RESTING COMFORTABLY, TOLERATING T-PIECE, 5LITERS, WITH OXYGEN SATURATION AT 100%, AND WITH NON-LABORED BREATHING. ISOLATION PRECAUTIONS REMAIN FOR PENDING COVID TEST. ALERT AND ORIENTED X 1. IV ACCESS INTACT AND PATENT INFUSING 1/2 NORMAL SALINE AT 75ml/hr. G-TUBE FEEDING INTACT AND INFUSING NEPRO AT 45ml/hr. SKIN WARM AND DRY TO TOUCH. PATIENT PRESENTS WITH NO PAIN OR DISCOMFORT AT THIS TIME. SAFETY PRECAUTIONS AND ASPIRATION PRECAUTIONS IMPLEMENTED, WITH BED LOCKED, BED IN THE LOWEST POSITION, BILATERAL SIDE RAILS UP, HOB AT 40 DEGREES, AND CALL LIGHT WITHIN EASY REACH. WILL CONTINUE TO MONITOR PATIENT.
[2019-10-04 20:00] VITALS: BP 147/76
[2019-10-04] MEDS: SENNOSIDES 8.6 MG TABLET GT SCH (21:05)
--- NOTE | 2019-10-04 22:45 | NUR ---
MS RN NOTES REPORT GIVEN TO SHANA BRITO. PATIENT IN ROOM, NO RESPIRATORY DISTRESS AT THIS TIME. IV ACCESS INTACT AND PATENT. G-TUBE SITE INTACT AND PATENT, NO LEAKAGE PRESENT. SAFETY PRECAUTIONS IMPLEMENTED BED LOCKED, BED IN THE LOWEST POSITION, AND CALL LIGHT WITHIN EASY REACH OF PATIENT.
--- NOTE | 2019-10-04 22:47 | NUR ---
ms rn opening note received patient from vivi almazan. received patient on isolation for r/o covid. patient in bed. a/ox1. on oxygen via tpiece 5/l/min. respirations are even and unlabored. no s/s sob noted. no resp distress noted/. no s/s/ pain at this time. in no apparent distress. iv access in right hand#22 running 1/2 NS @75ml/hr. gtube is present, currently off. continue feeding at 0200. pichardo catheter is present, draining to gravity, urine is yellow. bed is low and locked, hob elevated in semi fowlers, side rials up x2. call light within reach. will continue to monitor.
[2019-10-05] MEDS: NITROGLYCERIN 30 GM TUBE TP SCH ×3 (00:20→08:52)
[2019-10-05] MEDS: ALBUTEROL FS 2.5 MG/0.5 ML VIAL.NEB NEB SCH ×3 (01:17→13:24)
[2019-10-05] MEDS: IPRATROPIUM NEB FS 0.5 MG/2.5 ML AMPUL.NEB NEB SCH ×3 (01:17→13:24)
[2019-10-05] MEDS: clonazePAM 0.5 MG TABLET GT SCH ×2 (04:42→13:09)
[2019-10-05] MEDS: IV 1/2NS 1000 ML 1,000 ML IV SCH (05:51)
--- NOTE | 2019-10-05 06:10 | NUR ---
ms rn closing note on isolation for r/o covid. patient in bed. a/ox1. remains on oxygen via tpiece 5/l/min. connected to continuos pulse ox. respirations are even and unlabored. no sob noted. no resp distress. no pain noted. no distress noted. iv access maintained in right hand#22 running 1/2 NS @75ml/hr. gtube is maintained running nepro@45ml/hr. pichardo catheter maintained, output 750ml. bed remains low and locked, hob elevated in semi fowlers, side rials up x2. call light within reach. will endorse to next shift.
[2019-10-05 06:53] LABS: BASOPHILS % (AUTO) 0.5 % (0.0-2.0); EOSINOPHILS % (AUTO) 5.1 % (0.0-6.0); HEMATOCRIT 25 % (39-51); HEMOGLOBIN 7.6 g/dL (13.5-17.5); LYMPHOCYTES % (AUTO) 12.4 % (20.0-44.0); MEAN CORPUSCULAR HGB CONC 31 g/dl (31.0-36.0); MEAN CORPUSCULAR VOLUME 90 fL (80-96); MONOCYTES # (AUTO) 0.8 /CMM (0.1-1.30); MONOCYTES % (AUTO) 9.5 % (2.0-12.0); NEUTROPHILS % (AUTO) 72.5 % (43.0-81.0); PLATELET COUNT (AUTO) 506 /CMM (150-450); RED BLOOD CELL COUNT(AUTO) 2.74 MIL/uL (4.5-6.0); WHITE BLOOD COUNT (AUTO) 8.2 K/uL (4.3-11.0)
[2019-10-05 07:02] LABS: CALCIUM, SERUM 8.9 mg/dL (8.5-10.1); POTASSIUM 3.3 mmol/L (3.5-5.1)
--- NOTE | 2019-10-05 07:44 | NUR ---
RT NOTE HHN TX NOT GIVEN DUE TO PENDING COVID 19 TEST RESULTS. NO SOB NOTED. SAT 98% HR 75
[2019-10-05 08:00] VITALS: BP 156/78
--- NOTE | 2019-10-05 08:15 | NUR ---
Received call from lab; patient negative for COVID -19. Will d/c isolation
[2019-10-05] MEDS: ZINC SULFATE 220 MG CAPSULE GT SCH (08:50)
[2019-10-05] MEDS: predniSONE 5 MG TABLET GT SCH (08:50)
[2019-10-05] MEDS: LEVETIRACETAM SOL (5 ML) 100 MG/ML UDC GT SCH (08:50)
[2019-10-05] MEDS: CHLORHEXIDINE GLUCONATE 15 ML UDC MM SCH ×2 (08:50→17:25)
[2019-10-05] MEDS: DOCUSATE SODIUM LIQ 100 MG/10 ML UDC GT SCH (08:50)
[2019-10-05] MEDS: ASCORBIC ACID 500 MG TABLET GT SCH ×2 (08:51→17:25)
[2019-10-05] MEDS: TRAMADOL HCL 50 MG TABLET GT SCH ×2 (08:51→17:25)
[2019-10-05] MEDS: LABETALOL HCL (100MG) 100 MG TABLET GT SCH ×2 (08:51→17:26)
[2019-10-05] MEDS: VIT B CMPLX 3/FA/VIT C/BIOTIN 1 TAB TABLET GT SCH (08:51)
[2019-10-05] MEDS: PANTOPRAZOLE 40 MG VIAL IV SCH (08:51)
[2019-10-05] MEDS: cycloSPORINE SOLUTION 500 MG/5 ML UDC GT SCH (08:52)
[2019-10-05] MEDS: DAKINS QUARTER STRENGTH (0.125%) 480 ML BOTTLE TOP SCH (08:53)
[2019-10-05] MEDS: PROSOURCE / PROSTAT (PYXIS) 30 ML UDC GT SCH (08:53)
[2019-10-05] MEDS: APIXABAN 2.5 MG TABLET GT SCH ×2 (08:53→17:28)
[2019-10-05] MEDS: Z GUARD REMEDY 2 OZ OINT TP SCH (08:54)
[2019-10-05] MEDS ORDERED: IV 1/2NS 1000 ML 1,000 ML IV PRN (09:31)
[2019-10-05] MEDS ORDERED: POTASSIUM CHLORIDE 20 MEQ POWDER PACKET GT SCH (10:00)
--- NOTE | 2019-10-05 13:47 | NUR ---
REPORT CALLED TO LIGIA SALDANA ([facility]
[2019-10-05 17:26] VITALS: BP 164/97
--- NOTE | 2019-10-05 18:30 | NUR ---
Patient cleared for d/c to [facility] by MD. Patient awake , oriented x1 , non-verbal; trach t-piece on 5 L, saturating well. VS are stable and within baseline, afebrile, tested for COVID negative. Patient has G-tube in place, flushing well, no residual. Breathing unlabored and even with no s/s of pain. IV line and ID wrist band removed. Patient came from facility with f/c . Per MD send patient with Mccloud. Patient has sacral wound , dressing intact and clean, wound care provided prior discharge. D/C pictures taken and placed in the chart. No belongings. D/C papers sighed by 2 nurses. Patient safely picked up by ambulance.
== END 2019-10-05 18:37 | DRG 253 ==
LOC: ER 15:04 → TELE 17:09 → MED 10-01 08:35
PROVIDERS: ADMIT Internal Medicine; ATTEND Internal Medicine
PROC: 30233N1 Transfusion of Nonautologous Red Blood Cells into Peripheral Vein, Percutaneous Approach (ICD-10-PCS; principal; 2019-10-01)
DX: K92.2 Gastrointestinal hemorrhage, unspecified (principal); N17.0 Acute kidney failure with tubular necrosis; G93.41 Metabolic encephalopathy; G93.1 Anoxic brain damage, not elsewhere classified; E43 Unspecified severe protein-calorie malnutrition; J96.10 Chronic respiratory failure, unspecified whether with hypoxia or hypercapnia; R53.2 Functional quadriplegia; R64 Cachexia; D68.69 Other thrombophilia; T86.12 Kidney transplant failure; Z86.74 Personal history of sudden cardiac arrest; Z93.0 Tracheostomy status; R13.10 Dysphagia, unspecified; D64.9 Anemia, unspecified; N18.9 Chronic kidney disease, unspecified; D63.8 Anemia in other chronic diseases classified elsewhere; G40.909 Epilepsy, unspecified, not intractable, without status epilepticus; I48.0 Paroxysmal atrial fibrillation; Z93.1 Gastrostomy status; Z86.718 Personal history of other venous thrombosis and embolism; Z86.711 Personal history of pulmonary embolism; Z79.01 Long term (current) use of anticoagulants; Z68.1 Body mass index [BMI] 19.9 or less, adult; D47.3 Essential (hemorrhagic) thrombocythemia; M62.50 Muscle wasting and atrophy, not elsewhere classified, unspecified site; J44.9 Chronic obstructive pulmonary disease, unspecified; J98.11 Atelectasis; S31.000A Unspecified open wound of lower back and pelvis without penetration into retroperitoneum, initial encounter; X58.XXXA Exposure to other specified factors, initial encounter; Y93.9 Activity, unspecified; I12.9 Hypertensive chronic kidney disease with stage 1 through stage 4 chronic kidney disease, or unspecified chronic kidney disease; D50.9 Iron deficiency anemia, unspecified; N31.9 Neuromuscular dysfunction of bladder, unspecified; Y83.0 Surgical operation with transplant of whole organ as the cause of abnormal reaction of the patient, or of later complication, without mention of misadventure at the time of the procedure; Y92.129 Unspecified place in nursing home as the place of occurrence of the external cause
CPT/HCPCS: 31720; 36415; 71045-TC; 80048-TC; 80076-TC; 82272-TC; 82728-TC; 82784; 83540-TC; 83735-TC; 84100-TC; 84155; 84165; 84443-TC; 85025-TC; 85045-TC; 85730-TC; 86334; 86850-TC; 86921-TC; 87081-TC; 94640-TC; 94760-TC; 94762-TC; 94799-TC; A4623; A6253; A7526; C9113; G0378; J0360; J0885; J1953; J3490; J7030; J7040; J7050; J7502; J7512; P9016-BL; U0003-CS

== ENCOUNTER 2019-10-24 23:29 | Inpatient (IN) | payer OTHER ==
[~2019-10-24] VITALS: Ht 172.7 cm; Wt 54.0 kg
[~2019-10-24 23:29] MED LIST: ACET-2605 GT; ACET325T53 GT; AMIN887L GT; APIX2.5T GT; ASCO500T10 GT; BISA10SU61 RC; CHLO473M2 MM; CLON0.5T GT; CYCL5.5D3 GT; DOCU50LI GT; EPOE40007 IJ; FERR325T6 GT; FOLI0.8T2 GT; GABA250S GT; IPRA4AER IH; LABE200T5 GT; LEVE1000 GT; LIDOCAINE PATCH TP; MAGN400O6 GT; NA P133E RC; NUT.237L67 GT; PRED5TAB48 GT; QUERCETIN GT; SENN-261 GT; TRAM50TA2 GT; ZINC220T4 GT
--- NOTE | 2019-10-24 23:35 | NUR ---
ejrald 77 from [facility] for respiratory distress x [address] operator[address] trach collar pt placed on vent, also noted abnormal labs bun 191, NA 116 hemoglobin 5. ; pt to bed 5, aaox0, noted sob. tachypnic, noted with high blood pressure. placed on monitor, awaiting er doctor serenity.
[2019-10-24] MEDS ORDERED: VANCOMYCIN 1 GM VIAL ONE (23:38)
[2019-10-24] MEDS ORDERED: PIPERACILLIN /TAZOBACTAM 3.375 G VIAL IV ONE (23:39)
--- NOTE | 2019-10-24 23:42 | NUR ---
COVID SWAB SENT TO LAB
--- NOTE | 2019-10-24 23:42 | NUR ---
LABS COLLECTED AND SENT
--- NOTE | 2019-10-24 23:43 | NUR ---
URINE COLLECTED AND SENT TO LAB
--- NOTE | 2019-10-24 23:59 | NUR ---
RT pt arrived from facility via ems and placed on vent with settings from facility. settings are: AC 14 600 40% +5. pt trached with portex 7. minimal secretions suctioned via trach. alarms on and audible. vent plugged in to red outlet. hob at 40 degrees. no sob. no resp distress. no new orders at this time. will continue to monitor.
[2019-10-25] VITALS (24 sets, daily range): BP systolic 119–168; BP diastolic 71–96
[2019-10-25] MEDS ORDERED: ACETAMINOPHEN 650 MG/SUPP.RECT RC ONE
[2019-10-25] MEDS ORDERED: PIPERACILLIN /TAZOBACTAM 3.375 G in IV D5W 50 ML IV ONE ×2
[2019-10-25] MEDS ORDERED: IV NS 0.9% 1,000 ML BAG IV ONE
[2019-10-25] MEDS ORDERED: VANCOMYCIN 1 GM in IV D5W 250 ML IV ONE ×2
[2019-10-25 00:20] LABS: ALANINE AMINOTRANSFERASE 28 U/L (12-78); ALKALINE PHOSPHATASE 175 U/L (46-116); ASPARTATE AMINOTRANSFERASE 32 U/L (15-37); BILIRUBIN,DIRECT 0.6 mg/dL (0.0-0.2); BILIRUBIN,TOTAL 1.3 mg/dL (0.2-1.0); CALCIUM, SERUM 7.8 mg/dL (8.5-10.1); CARBON DIOXIDE 16 mmol/L (21-32); GLUCOSE 138 mg/dL (74-106); POTASSIUM 4.9 mmol/L (3.5-5.1); TOTAL PROTEIN, SERUM 7.1 g/dL (6.4-8.2)
[2019-10-25] MEDS ORDERED: ACETAMINOPHEN 650 MG/20.3 ML UDC GT ONE (00:30)
[2019-10-25 00:34] LABS: BASOPHILS % (AUTO) 0.1 % (0.0-2.0); LYMPHOCYTES # (AUTO) 0.2 /CMM (0.8-4.8); MEAN CORPUSCULAR HGB CONC 31 g/dl (31.0-36.0); MEAN CORPUSCULAR VOLUME 89 fL (80-96); MONOCYTES # (AUTO) 0.8 /CMM (0.1-1.30); MONOCYTES % (AUTO) 3.6 % (2.0-12.0); NEUTROPHILS # (AUTO) 22.2 /CMM (1.8-8.9); NEUTROPHILS % (AUTO) 94.3 % (43.0-81.0); PLATELET COUNT (AUTO) 424 /CMM (150-450); WHITE BLOOD COUNT (AUTO) 23.6 K/uL (4.3-11.0)
[2019-10-25 00:38] LABS: CHLORIDE 80 mmol/L (98-107); SODIUM SERUM 115 mmol/L (136-145); UREA NITROGEN, BLOOD 208 mg/dL (7-18)
[2019-10-25 00:39] LABS: RED BLOOD CELL COUNT(AUTO) 1.94 MIL/uL (4.5-6.0)
[2019-10-25 00:40] LABS: HEMOGLOBIN 5.4 g/dL (13.5-17.5)
[2019-10-25 00:41] LABS: HEMATOCRIT 17 % (39-51)
[2019-10-25] MEDS ORDERED: ACETAMINOPHEN 650 MG/20.3 ML UDC ONE (00:46)
[2019-10-25] MEDS ORDERED: FOLI0.8T2 GT (00:52)
[2019-10-25] MEDS ORDERED: HYDR-4384 GT (00:52)
[2019-10-25] MEDS ORDERED: MAG30ORA GT (00:52)
[2019-10-25 02:26] LABS: APPEARANCE,URINE CLOUDY (CLEAR); COLOR,URINE RED (YELLOW)
[2019-10-25 02:27] LABS: BILIRUBIN,URINE NEGATIVE (NEGATIVE); BLOOD, URINE 3+ Ery/uL (NEGATIVE); KETONES,URINE NEGATIVE (NEGATIVE); PH,URINE 6.5 (5.0-8.0); PROTEIN,URINE 3+ mg/dl (NEGATIVE); UGLUCOSE NEGATIVE (NEGATIVE)
[2019-10-25 02:28] LABS: BACTERIA,URINE Many /HPF (None Seen); LEUKOCYTE ESTERASE ,URINE 3+ (NEGATIVE); NITRITE, URINE POSITIVE (NEGATIVE); RBC,URINE 81-100 /HPF (0-2); SQUAMOUS EPITHELIAL CELL,UR Few /HPF (None Seen); WBC,URINE 81-100 /HPF (0-3)
--- NOTE | 2019-10-25 02:47 | NUR ---
BED ASSIGNMENT 116-2
--- NOTE | 2019-10-25 02:58 | NUR ---
report given to gina harris, pt will be transported to [facility]
[2019-10-25] MEDS ORDERED: DESMOPRESSIN 20 MCG in IV NS 0.9% 50 ML IV ONE (03:30)
--- NOTE | 2019-10-25 03:30 | NUR ---
pt transported to [facility]
[2019-10-25] MEDS ORDERED: IV NS 0.9% 1,000 ML IV PRN ×2 (03:36→04:00)
--- NOTE | 2019-10-25 03:40 | NUR ---
RT pt transported to floor with no complications. vent plugged in to red outlet. hob at 40 degrees. alarms on and audible. will continue to monitor.
[2019-10-25] MEDS ORDERED: ONDANSETRON HCL/PF 4 MG/2 ML VIAL IVP PRN (04:00)
[2019-10-25] MEDS ORDERED: IV NS 0.9% 1,000 ML IV ONE (04:00)
[2019-10-25] MEDS ORDERED: Z GUARD REMEDY 2 OZ OINT TP PRN (04:00)
[2019-10-25] MEDS ORDERED: MEROPENEM 500 MG in IV NS 0.9% 50 ML IV ONE (04:00)
--- NOTE | 2019-10-25 04:00 | NUR ---
TELE-TD/DESIGN ARCHITECT PT SEEN BY DR. ACKERMAN.
[2019-10-25 04:48] LABS: MONOCYTES % (MANUAL) 3 % (0-11.0)
[2019-10-25] MEDS: clonazePAM 0.5 MG TABLET GT SCH ×3 (05:00→22:41)
--- NOTE | 2019-10-25 05:00 | NUR ---
TELE-TD/ANTENNA RIGGER WILL ENDORSE NS BOLUS TO DAYSHIFT PT IS TO RECEIVE BLOOD TRANSFUSION AT THIS TIME.
[2019-10-25] MEDS ORDERED: DESMOPRESSIN 4 MCG/ML AMPUL ONE (05:43)
[2019-10-25] MEDS ORDERED: MEROPENEM 500 MG VIAL IV ONE (05:56)
--- NOTE | 2019-10-25 06:30 | NUR ---
TELE-TD/RELAY MECHANIC SPOKE WITH BROTHER INGA NG OBTAINED CONSENT FOR JEANNIE CATH PLACEMENT AND TO START HEMODIALYSIS. WITNESSED BY LIAT SALDANA.
[2019-10-25] MEDS ORDERED: FEE PK DOSING 1 MIN EA MC ONE (06:43)
[2019-10-25] MEDS ORDERED: VANCOMYCIN 500 MG in IV D5W 100 ML IV PRN (07:00)
--- NOTE | 2019-10-25 07:30 | NUR ---
RN NOTES RECEIVED PATIENT IN BED. ONGOING BLOOD TRANSFUSION. PATIENT OBTUNDED. ON MECH VENT. NOT IN ANY FORM OF DISTRESS. NO S/S OF PAIN OR DISCOMFORT. IV ACCESS INTACT AND PATENT. GTUBE IN PLACE. KEPT PATIENT SAFE AND COMFORTABLE. BED IN LOW/LOCKED PSOTIION. SIDERAILS UP, HOB ELEVATED. WILL MONITOR ACCORDINGLY.
[2019-10-25] MEDS: LEVETIRACETAM SOL (5 ML) 100 MG/ML UDC GT SCH (08:25)
[2019-10-25] MEDS: TRAMADOL HCL 50 MG TABLET GT SCH ×2 (08:25→17:11)
[2019-10-25] MEDS: DEXAMETHASONE SOD PHOSPHATE 10 MG/ML VIAL IV SCH (08:26)
--- NOTE | 2019-10-25 08:30 | NUR ---
rn notes temp 100.2 cooling measures done. sanjana rome accordingly.
--- NOTE | 2019-10-25 08:48 | NUR ---
RN NOTES BLOOD TRANSFUSION ENDED. PATIENT TOLERATED WELL. NO ADVERSE REACTION NOTED. WILL MONIOTR ACCORDINGLY
[2019-10-25] MEDS: PROSOURCE / PROSTAT (PYXIS) 30 ML UDC GT SCH (09:00)
[2019-10-25] MEDS ORDERED: GABAPENTIN 400 MG CAPSULE GT SCH (09:00)
[2019-10-25] MEDS ORDERED: prednisoLONE 15 MG/5 ML UDC GT SCH (09:00)
[2019-10-25] MEDS: FERROUS SULFATE UDC 300 MG/5 ML UDC GT SCH (09:00)
[2019-10-25] MEDS: ZINC SULFATE 220 MG CAPSULE GT SCH (09:00)
[2019-10-25] MEDS: LABETALOL HCL (100MG) 100 MG TABLET GT SCH ×2 (09:26→22:44)
--- NOTE | 2019-10-25 09:30 | NUR ---
nn notes temp 100.6. tylenol 650mg gt given as ordered. on cooling measures. will moniotr accordingly.
[2019-10-25] MEDS: ACETAMINOPHEN 325 MG TABLET PO PRN (09:51)
--- NOTE | 2019-10-25 10:13 | NUR ---
rn notes dr lennon at the nsg station. per MD, no need to give NS bolus that was endorsed from player piano technician. also MD ordered NPO except meds.
--- NOTE | 2019-10-25 11:08 | NUR ---
WOUND CARE CONSULT: REVIEWED CHART, NURSING DOCUMENTATION AND PHOTOS WHICH SHOW SACRAL STAGE 4 ULCER AND INCONTINENCE ASSOCIATED SKIN DAMAGE WITH SCARRING TO BUTTOCKS/PERIANAL AREA, PRESENT ON ADMISSION. RECOMMENDATIONS MADE FOR SKIN PROTECTION AND WOUND CARE. DISCUSSED WITH NURSING STAFF. DR GERARD TENORIO NOTIFIED OF SURGICAL CONSULT REQUEST. FIRST STEP LOW AIRLOSS MATTRESS ON ORDER. MD IN AGREEMENT WITH PLAN OF CARE.
[2019-10-25] MEDS: DAKINS QUARTER STRENGTH (0.125%) 480 ML BOTTLE TOP SCH (11:57)
--- NOTE | 2019-10-25 12:00 | NUR ---
rn notes noted with hematuria. Dr Logan made aware.
[2019-10-25 12:16] LABS: BASOPHILS % (AUTO) 0.1 % (0.0-2.0); EOSINOPHILS % (AUTO) 1.5 % (0.0-6.0); LYMPHOCYTES # (AUTO) 0.1 /CMM (0.8-4.8); LYMPHOCYTES % (AUTO) 0.5 % (20.0-44.0); MEAN CORPUSCULAR HGB CONC 31 g/dl (31.0-36.0); MEAN CORPUSCULAR VOLUME 90 fL (80-96); MONOCYTES # (AUTO) 0.6 /CMM (0.1-1.30); MONOCYTES % (AUTO) 2.1 % (2.0-12.0); NEUTROPHILS # (AUTO) 27.8 /CMM (1.8-8.9); NEUTROPHILS % (AUTO) 95.8 % (43.0-81.0); PLATELET COUNT (AUTO) 319 /CMM (150-450)
[2019-10-25 12:20] LABS: HEMATOCRIT 15 % (39-51); HEMOGLOBIN 4.8 g/dL (13.5-17.5)
[2019-10-25 12:27] LABS: CREATININE 6.6 mg/dL (0.6-1.3); POTASSIUM 4.5 mmol/L (3.5-5.1)
[2019-10-25 12:43] LABS: LYMPHOCYTES % (MANUAL) 2 % (16-48); MONOCYTES % (MANUAL) 3 % (0-11.0); NEUTROPHILS % (MANUAL) 95 (42-76)
[2019-10-25] MEDS: GABAPENTIN 100 MG CAPSULE GT SCH (13:13)
[2019-10-25] MEDS ORDERED: GELATIN SPONGE,ABSORBABLE 1 SPONGE SPONGE TP ONE (14:25)
--- NOTE | 2019-10-25 14:55 | NUR ---
rn notes charged nurse Genesis informed primary nurse that patient right arm was bleeding. per Genesis, patient had a skin tear; charged nurse applied pressure and wrapped with gauze. Primary nurse checked the patient and clean him up, noted with pulled out iv catheter 18 gauge on right arm. unable to assess skin tear due to wrapped gauze, will assess when bleeding stop.
--- NOTE | 2019-10-25 15:00 | NUR ---
endorsed patient to SHANA Verde for mishel. patient in stable condition. for blood transfusion. placed on [facility] air mattress. Addendum: 10/25/19 at 1752 by KIARA BAILEY endorsed scd pumps to SHANA Verde
--- NOTE | 2019-10-25 15:02 | NUR ---
RECEIVED REPORT FROM SHANA CRAIG
[2019-10-25] MEDS ORDERED: LABETALOL HCL (100MG) 100 MG TABLET GT STA (18:07)
[2019-10-25 18:17] LABS: MEAN CORPUSCULAR HGB CONC 31 g/dl (31.0-36.0); MEAN CORPUSCULAR VOLUME 93 fL (80-96); PLATELET COUNT (AUTO) 299 /CMM (150-450)
--- NOTE | 2019-10-25 18:26 | NUR ---
CONTACTED DR BIRCENO IN REGARDS TO PATIENT'S INCREASED SBP WITH ORDERS TO ADMINISTER LOBETALOL 200MG NOW. MED ORDERED AND ADMINISTERED VIA GT. WILL RE-CHECK BP SOON.
--- NOTE | 2019-10-25 18:48 | NUR ---
RN CLOSING NOTE: PATIENT REMAINS IN ROOM. NO SIGNS OF ACUTE DISTRESS NOTED. SR IN THE 80S ON THE TELE MONITOR. WILL INFORM ONCOMING NURSE ABOUT GETTING BLOOD CULTURE FROM HD CATH WHEN PATIENT GETS DIALYZED. SAFETY MEASURES IMPLEMENTED, BED IN LOWEST POSITION, LOCKED, SIDE RAILS UP, CALL LIGHT WITHIN REACH. WILL ENDORSE TO ONCOMING SHIFT RN FOR CONTINUITY OF CARE.
--- NOTE | 2019-10-25 19:15 | NUR ---
RN OPENING NOTE RECEIVED A PATIENT IN BED RESTING OBTUNDED ON VENT SETTING AC 14 V600ML PEEP 5 NON VERBAL,ENDORSED PREVOIUS SHIFT HE HAD 2 TIMES BLOOD TRANFUSION TODAY AND HAVE ANOTHER ONE TODAY,ON BELLAMY NO URINE OUT PUT IV ON EMORY INTACT FLUSHED, LEFT UPPER ARM AV SHUNT,RIGHT FEMORAL HD CATH,G-TUBE FEEDING CLAMPED,NPO EXCEPT MEDS,CONTINUE TO MONITOR.
--- NOTE | 2019-10-25 19:20 | NUR ---
RN NOTE RECEIVED A CALL FROM LAB FOR ABNORMAL LAB HGB 5.1, HCT 17 BUN [address] SODIUM [address] ACKERMAN MADE AWARE,ALSO MENTIONED HE HAS DIALYSIS TOMORROW.
[2019-10-25 19:26] LABS: RED BLOOD CELL COUNT(AUTO) 1.82 MIL/uL (4.5-6.0)
[2019-10-25 19:28] LABS: HEMATOCRIT 17 % (39-51); HEMOGLOBIN 5.1 g/dL (13.5-17.5)
--- NOTE | 2019-10-25 19:40 | NUR ---
RN NOTE PATIENT VITAL SIGN IS BP 162/84 HR [address] ACKERMAN MADE AWARE FOR BLOOD TRANSFUSION SAID OK TO TRANSFUSE BLOOD ALSO ORDERED HYDRALAZINE 10 MG IV EVERY 4 HOURS PRN WHEN SBP>165 NOTED AND CARRIED OUT.
--- NOTE | 2019-10-25 20:51 | NUR ---
RN NOTE START BLOOD TRANSFUSION, BP 165/84 HR 90 RR:21 O2:100 ON VENT CONTINUE TO MONITOR.
[2019-10-25 20:57] LABS: CREATININE 7.1 mg/dL (0.6-1.3); POTASSIUM 5.2 mmol/L (3.5-5.1)
--- NOTE | 2019-10-25 21:00 | NUR ---
RN NOTE KLONOPIN 0.5MG GIVEN TO PATIENT AT 2100 ON TIME.
--- NOTE | 2019-10-25 22:00 | NUR ---
RN NOTE LEVETIRACETAM 500 MG GIVEN ON TIME AT 2114.
--- NOTE | 2019-10-25 23:00 | NUR ---
RN TD NOTES, INFORMED MD TYRON RESULTS FOR US BLADER WHERE STATED THAT BELLAMY CATHETER IS NOT IN PLACED, AND ALSO INFORMED THAT BELLAMY CATHETER WAS ALREADY REMOVED AND A NEW ONE WAS INSERTED WITH SUCCEED, AND WE GOT SOME URINE, PER TYRON NO NEW ORDERS AT THIS TIME.ONE WITH
--- NOTE | 2019-10-25 23:47 | NUR ---
RN NOTE END OF BLOOD TRANSFUSION,BP 165/81 HR 85 RR:14 O2:100% ON VENT,CONTINUE TO MONITOR.
[2019-10-26] VITALS (10 sets, daily range): BP systolic 142–179; BP diastolic 72–114
[2019-10-26] MEDS: LEVETIRACETAM SOL (5 ML) 100 MG/ML UDC GT SCH ×3 (00:51→20:11)
[2019-10-26 01:46] LABS: HEMATOCRIT 22 % (39-51); HEMOGLOBIN 7.4 g/dL (13.5-17.5); MEAN CORPUSCULAR HGB CONC 33 g/dl (31.0-36.0); MEAN CORPUSCULAR VOLUME 86 fL (80-96); PLATELET COUNT (AUTO) 273 /CMM (150-450); RED BLOOD CELL COUNT(AUTO) 2.59 MIL/uL (4.5-6.0); WHITE BLOOD COUNT (AUTO) 25.4 K/uL (4.3-11.0)
--- NOTE | 2019-10-26 02:04 | NUR ---
RN CLOSING NOTE PATIENT REMAINS IN BED IN VENT LAB DRAW AFTER BLOOD TRANSFUSION FOR H&H,ALERT NON VERBAL BREATHING IN NON LABORED,ENDORSED TO HIRAM SALDANA.
--- NOTE | 2019-10-26 03:30 | NUR ---
TELE/RN OPENING NOTES RECEIVED PATIENT RESTING IN BED, ALERT AND ORIENTED X 1, OBTUNDED. PATIENT ON TELE MONITOR READING SINUS RHYTHM 82. PATIENT SHOWS NO SIGNS OF DISTRESS. PATIENT ON VENT. TACH, PORTEX 8, AC 14, TV 600, FIO2 40, PEEP5. PATIENT IS NPO. G TUBE IS CLAMPED INTACT. PATIENT HAS FA #18 G, FEM HD CATH INTACT, UA SHUNT NAKITA, EMORY #18 G. SAFETY MEASURES ARE IN PLACE, BED IS LOCKED AND PLACED IN THE LOW POSITION, ALARM ON, SIDE RAILS UP X 2. CALL LIGHT WITHIN REACH. RECEIVED REPORT FROM FRANCISCO SALDANA FOR LEVI. WILL CONTINUE TO MONITOR.
[2019-10-26 04:10] LABS: EOSINOPHILS % (MANUAL) 1 % (0-4); LYMPHOCYTES % (MANUAL) 1 % (16-48); NEUTROPHILS % (MANUAL) 95 (42-76)
--- NOTE | 2019-10-26 05:32 | NUR ---
TELE/RN NOTES LAB CALLED, PATIENT BLOOD CX RESULTS GRAM POSITIVE COCCI AND GRAM NEGATIVE RODS SEEN ON GRAM STAIN. CHARGE NURSE HAS BEEN INFORMED AND MD NOTIFIED.
--- NOTE | 2019-10-26 06:10 | NUR ---
TELE/RN NOTES PER DR JULIA ACKERMAN NO NEW ORDERS AT THIS TIME REGARDING BLOOD CX RESULTS. WILL CONTINUE TO MONITOR.
[2019-10-26 06:18] LABS: OCCULT BLOOD STOOL POSITIVE (NEGATIVE)
--- NOTE | 2019-10-26 06:20 | NUR ---
TELE/RN CLOSING NOTES PATIENT SLEEPING IN BED, ALERT AND ORIENTED X 1, OBTUNDED. PATIENT ON TELE MONITOR READING SINUS RHYTHM 80. PATIENT SHOWS NO SIGNS OF DISTRESS. PATIENT ON VENT. TACH, PORTEX 8, AC 14, TV 600, FIO2 40, PEEP 5. PATIENT IS NPO. G TUBE IS CLAMPED INTACT, CLEANED AND DRESSING CHANGED. WOUND TREATMENTS HAVE BEEN DONE, SCARUM CLEANED AND DRESSING CHANGED. PATIENT HAS FA #18 G, FEM HD CATH INTACT, UA SHUNT NAKITA, EMORY #18 G. LAB AM HAVE BEEN DRAWN. ALL PATIENTS NEEDS HAVE BEEN MET DURING SHIFT. SAFETY MEASURES ARE IN PLACE, BED IS LOCKED AND PLACED IN THE LOW POSITION, ALARM ON, SIDE RAILS UP X 2. CALL LIGHT WITHIN REACH. WILL ENDORSE CARE TO DAY SHIFT NURSE.
[2019-10-26 06:58] LABS: HEMATOCRIT 21 % (39-51); LYMPHOCYTES # (AUTO) 0.2 /CMM (0.8-4.8); LYMPHOCYTES % (AUTO) 0.8 % (20.0-44.0); MEAN CORPUSCULAR HGB CONC 32 g/dl (31.0-36.0); MEAN CORPUSCULAR VOLUME 88 fL (80-96); MONOCYTES # (AUTO) 1.4 /CMM (0.1-1.30); NEUTROPHILS # (AUTO) 25.9 /CMM (1.8-8.9); NEUTROPHILS % (AUTO) 94.2 % (43.0-81.0); PLATELET COUNT (AUTO) 274 /CMM (150-450); RED BLOOD CELL COUNT(AUTO) 2.42 MIL/uL (4.5-6.0); WHITE BLOOD COUNT (AUTO) 27.5 K/uL (4.3-11.0)
[2019-10-26 07:09] LABS: HEMOGLOBIN 6.8 g/dL (13.5-17.5)
[2019-10-26 07:21] LABS: ALBUMIN 1.6 g/dL (3.4-5.0); BILIRUBIN,TOTAL 1.2 mg/dL (0.2-1.0); CALCIUM, SERUM 6.6 mg/dL (8.5-10.1); CREATININE 7.1 mg/dL (0.6-1.3); MAGNESIUM 2.9 mg/dL (1.8-2.4); PHOSPHORUS 3.5 mg/dL (2.5-4.9); TOTAL PROTEIN, SERUM 5.6 g/dL (6.4-8.2)
--- NOTE | 2019-10-26 07:30 | NUR ---
RN OPENING NOTE: RECEIVED PATIENT IN BED THIS MORNING. PATIENT HAS TRACH, TOLERATING SETTINGS WELL, SATING WELL, OBTUNDED. NO SIGNS OF ACUTE RESPIRATORY DISTRESS NOTED. NO SIGNS OF ACUTE DISTRESS NOTED. RECEIVED A CALL FROM LAB FOR CRITICAL VALUES, AWAITING NEW ORDERS. PATIENT HAS BELLAMY, DRAINING WELL, HEMATURIA NOTED. WOUND CARE PER ORDERS. PATIENT NPO BESIDES MEDS. GT CLAMPED. #18 RFA, #22 R WRIST, C/D/I, FLUSHING WELL, R FEMORAL HD CATH, NAKITA AV SHUNT C/D/I, NO SIGNS OF COMPLICATIONS NOTED. SAFETY MEASURES IMPLEMENTED, BED IN LOWEST POSITION, LOCKED, SIDE RAILS UP, CALL LIGHT WITHIN REACH. WILL CONTINUE TO MONITOR PATIENT FOR CHANGES.
[2019-10-26 07:45] LABS: THYROID STIMULATING HORMONE 0.667 uIU/mL (0.358-3.74)
[2019-10-26] MEDS ORDERED: IV Sodium Chloride 3% 500 ML 500 ML IV SCH (08:00)
[2019-10-26 08:45] LABS: ABG BASE EXCESS -14.8 mmol/L; ABG OXYGEN SATURATION 99.3 % (92.0-98.5); ABG PCO2 19.5 mmHg (35.0-45.0); ABG PH 7.318 (7.350-7.450); ABG PO2 183.5 mmHg (75.0-100.0); AaDO2 79.3 mmHg; COHb 0.5 % (0.5-1.5); MetHb 0.2 % (0.0-1.5); O2Hb 98.6 % (94.0-97.0); PEEP,BG 5 cm H2O; SITE, ABG Left Radial; VT, ABG 600 mL
--- NOTE | 2019-10-26 08:55 | NUR ---
dr. duarte ordered [facility] PCR.
[2019-10-26] MEDS ORDERED: predniSONE 5 MG TABLET GT SCH ×2 (09:00)
[2019-10-26] MEDS: MEROPENEM 500 MG in IV NS 0.9% 50 ML IV SCH (09:02)
[2019-10-26] MEDS: PROSOURCE / PROSTAT (PYXIS) 30 ML UDC GT SCH (09:02)
[2019-10-26] MEDS: FERROUS SULFATE UDC 300 MG/5 ML UDC GT SCH (09:03)
[2019-10-26] MEDS: TRAMADOL HCL 50 MG TABLET GT SCH ×2 (09:04→16:07)
[2019-10-26] MEDS: LABETALOL HCL (100MG) 100 MG TABLET GT SCH ×2 (09:04→20:11)
[2019-10-26] MEDS: DEXAMETHASONE SOD PHOSPHATE 10 MG/ML VIAL IV SCH (09:05)
[2019-10-26] MEDS: ZINC SULFATE 220 MG CAPSULE GT SCH (09:05)
[2019-10-26] MEDS: DAKINS QUARTER STRENGTH (0.125%) 480 ML BOTTLE TOP SCH (09:06)
--- NOTE | 2019-10-26 10:53 | NUR ---
NACL 3% ADMINISTERED LATE D/T LATE DELIVERY OF MEDICATION FROM PHARMACY
[2019-10-26] MEDS: hydrALAZINE HCL IV 20 MG VIAL IV PRN (10:56)
[2019-10-26 11:47] LABS: BAND % (MANUAL) 6 % (0.0-5.0); MONOCYTES % (MANUAL) 1 % (0-11.0); NEUTROPHILS % (MANUAL) 93 (42-76)
--- NOTE | 2019-10-26 11:48 | NUR ---
PER DIALYSIS NURSE, PATIENT IS NOT GETTING DIALYZED TODAY. DR VASQUEZ AWARE OF PATIENT'S CRITICAL LAB VALUES. BLOOD TRANSFUSING AT THIS TIME, NO SIGNS OF COMPLICATIONS NOTED.
[2019-10-26] MEDS: clonazePAM 0.5 MG TABLET GT SCH ×2 (12:53→20:11)
[2019-10-26 13:03] LABS: LYMPHOCYTES % (MANUAL) 0 % (16-48)
--- NOTE | 2019-10-26 13:26 | NUR ---
DR. RAWLS CALLED AND WANTS PATIENT STABILIZED FIRST PRIOR TO CT OF KIDNEY. DR. MARTIN MADE AWARE AND OK TO HOLD OFF ON BIOPSY UNTIL GI BLEEDING RESOLVED,DR. VASQUEZ MADE AWARE.
--- NOTE | 2019-10-26 13:32 | NUR ---
DR. VASQUEZ OK TO PROCEED WITH BIOPSY ONCE HEMOGLOBIN AFTER BLOOD TRANSFUSION IS ABOVE 7.PER DR. VASQUEZ MORE LIKELY IT IS NOT GI RELATED.
--- NOTE | 2019-10-26 13:38 | NUR ---
DR. RWALS MADE AWARE PRIMARY MD CLEARED PATIENT FOR BIOPSY OF KIDNEY.
--- NOTE | 2019-10-26 13:39 | NUR ---
STILL WITH PENDING CONSENT,WILL CONTINUE TO FOLLOWUP.
--- NOTE | 2019-10-26 13:47 | NUR ---
PER CN, NPO INCLUDING MEDS PAST MIDNIGHT
[2019-10-26 16:12] LABS: HEMOGLOBIN 7.6 g/dL (13.5-17.5)
[2019-10-26 16:42] LABS: CALCIUM, SERUM 6.6 mg/dL (8.5-10.1); CREATININE 7.1 mg/dL (0.6-1.3); POTASSIUM 4.4 mmol/L (3.5-5.1)
--- NOTE | 2019-10-26 17:33 | NUR ---
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 NO RESPONSE. LEFT VOICEMAIL. AWAITING CALL BACK. WILL F/U. Addendum: 10/26/19 at 1802 by NATO BARCENAS RN CONTACTED X2, STILL NO RESPONSE, WILL F/U
--- NOTE | 2019-10-26 19:01 | NUR ---
RN CLOSING NOTE: PATIENT REMAINS IN BED, NO SIGNS OF RESPIRATORY DISTRESS NOTED, NO SIGNS OF ACUTE DISTRESS NOTED. SR 85 ON TELE MONITOR. SAFETY MEASURES IMPLEMENTED, BED IN LOWEST POSITION LOCKED, BED ALARM ON, SIDE RAILS UP, CALL LIGHT WITHIN REACH. WILL ENDORSE TO KIRIT SALDANA FOR CONTINUITY OF CARE. WILL MENTION TO PUT PATIENT NPO INCLUDING MEDS POST MIDNIGHT/RECEIVE CONSENT FOR PROCEDURE.
--- NOTE | 2019-10-26 19:30 | NUR ---
RN OPENING NOTES: Received pt in bed, obtunded on mechanical ventilation. Tolerating settings well. No SOB or respiratory distress noted. On isolation for R/O Covid. SR on tele monitor. IV site on RFA #18 patent and flushed. Dressing c/d/i. R fem HD cath and NAKITA AV shunt noted. GT site clamped, pt NPO after MN. Safety measures in place. Will continue to monitor.
--- NOTE | 2019-10-26 20:02 | NUR ---
RN NOTE: Dr. Coats called, stated he wants to do EGD on pt. Will call family for consent.
--- NOTE | 2019-10-26 21:34 | NUR ---
RN NOTE: Contacted pt's brother Fuentes Campbell to obtain consent for EGD and CT guided biopsy of kidney. No answer, left VM. Will F/U.
--- NOTE | 2019-10-26 22:32 | NUR ---
RN NOTE: 2229: Spoke to pt's brother Fidencio who stated he will be the one to give consent for pt's procedures. Obtained consent via phone and had Miguel Lara RN witness. Signed consents in chart. Will endorse to AM nurse.
--- NOTE | 2019-10-26 23:55 | NUR ---
RN NOTE: Pt's brother Fidencio called. Stated that it is ok to give updates about pt to his girlfriend Debra Macias.
[2019-10-27] VITALS (7 sets, daily range): BP systolic 131–164; BP diastolic 73–96
[2019-10-27 02:58] LABS: C-REACTIVE PROTEIN 12.3 mg/dL (0.0-0.9)
[2019-10-27] MEDS: clonazePAM 0.5 MG TABLET GT SCH ×3 (05:00→21:02)
[2019-10-27] MEDS ORDERED: ANESTHESIA TRAY IN PYXIS 1 EA TRAY MC ONE (06:31)
--- NOTE | 2019-10-27 06:40 | NUR ---
RN CLOSING NOTES: Pt remains in bed, on mechanical ventilation. No SOB or respiratory distress noted throughout shift. No acute changes noted throughout shift. SR on tele monitor. Isolation precautions in place. All meds administered as prescribed. Kept clean and dry. Wound care rendered as ordered. Safety measures in place. Will endorse to AM nurse for LEVI.
[2019-10-27 06:52] LABS: ALBUMIN 1.7 g/dL (3.4-5.0); BILIRUBIN,TOTAL 1.1 mg/dL (0.2-1.0); CALCIUM, SERUM 6.8 mg/dL (8.5-10.1); CREATININE 7.2 mg/dL (0.6-1.3); MAGNESIUM 3.1 mg/dL (1.8-2.4); PHOSPHORUS 4.4 mg/dL (2.5-4.9); POTASSIUM 4.1 mmol/L (3.5-5.1); TOTAL PROTEIN, SERUM 5.7 g/dL (6.4-8.2)
[2019-10-27 06:53] LABS: BASOPHILS % (AUTO) 0.2 % (0.0-2.0); EOSINOPHILS % (AUTO) 0.3 % (0.0-6.0); HEMATOCRIT 26 % (39-51); HEMOGLOBIN 8.8 g/dL (13.5-17.5); LYMPHOCYTES # (AUTO) 0.2 /CMM (0.8-4.8); MEAN CORPUSCULAR HGB CONC 34 g/dl (31.0-36.0); MEAN CORPUSCULAR VOLUME 87 fL (80-96); MONOCYTES # (AUTO) 0.8 /CMM (0.1-1.30); MONOCYTES % (AUTO) 3.5 % (2.0-12.0); NEUTROPHILS # (AUTO) 21.7 /CMM (1.8-8.9); PLATELET COUNT (AUTO) 280 /CMM (150-450); WHITE BLOOD COUNT (AUTO) 22.9 K/uL (4.3-11.0)
--- NOTE | 2019-10-27 07:30 | NUR ---
NICHOL RN NOTES PT HAS TEM OF 99.9. TYLENOL AND ICE PACKS WERE GIVEN . WILL RECHECK THE TEM.
[2019-10-27] MEDS: LABETALOL HCL (100MG) 100 MG TABLET GT SCH ×2 (07:55→21:02)
[2019-10-27] MEDS: ACETAMINOPHEN 325 MG TABLET PO PRN (07:55)
[2019-10-27] MEDS: GABAPENTIN 100 MG CAPSULE GT SCH (07:56)
[2019-10-27] MEDS: LEVETIRACETAM SOL (5 ML) 100 MG/ML UDC GT SCH ×2 (07:56→21:01)
[2019-10-27] MEDS: hydrALAZINE HCL IV 20 MG VIAL IV PRN (07:56)
[2019-10-27] MEDS: DAKINS QUARTER STRENGTH (0.125%) 480 ML BOTTLE TOP SCH (07:57)
[2019-10-27] MEDS: FERROUS SULFATE UDC 300 MG/5 ML UDC GT SCH (08:03)
[2019-10-27] MEDS: TRAMADOL HCL 50 MG TABLET GT SCH ×2 (08:03→17:25)
[2019-10-27] MEDS: MEROPENEM 500 MG in IV NS 0.9% 50 ML IV SCH (08:05)
[2019-10-27] MEDS: ZINC SULFATE 220 MG CAPSULE GT SCH (08:11)
[2019-10-27] MEDS: DEXAMETHASONE SOD PHOSPHATE 10 MG/ML VIAL IV SCH (08:11)
--- NOTE | 2019-10-27 08:15 | NUR ---
NICHOL RN OPENING NOTES: RECEIVED PT IN BED. EGD WAS PERFORMED THIS MORNING.PT IS OBTUNDED AND ON MECHANICAL VENTILATION . TOLERATING WEEL AND SATURATED 100 %. NO SOB OF RESPIRATORY DISTRESS IS NOTED. PT IS ON ISOLATION PRECATION. COVID TEST WAS DONE YESTERDAY STILL PENDING. IV site on RFA #18 INTACRT and WELL FLUSHED.. Dressing c/d/i. R fem HD cath and NAKITA AV shunt noted. GT site clamped, pt NPO after MN. SAFETY MEASUREMENT ARE IMPLEMENTED.BED IN LOWEST POSITION. RAILS ARE UP X2. CALL LIGHT WITHIN THE REACH . WILL CONTINUE TO MONITOR.
--- NOTE | 2019-10-27 08:35 | NUR ---
NICHOL RN NOTES CHECKED THE TEM NOW IS 98.5.
[2019-10-27] MEDS: PROSOURCE / PROSTAT (PYXIS) 30 ML UDC GT SCH (09:05)
--- NOTE | 2019-10-27 10:24 | NUR ---
ramses multiple times with CT SCHEDULE FOR NEEDLE BIOPSY ,CT UNABLE TO SCHEDULE FOR NOW ,WILL CONTINUE TO FF. UP.
--- NOTE | 2019-10-27 10:28 | NUR ---
DR. VASQUEZ SEEN AND EVALUATED PT. UODATED PT. AWAITS CT NEEEDLE GUIDED BIOPSY OF KIDNEY ALSO RELAYED ABNORMAL LABS.
--- NOTE | 2019-10-27 10:55 | NUR ---
FOLLOWUP AGAIN W/ CT NOT SURE WHAT TIME TO DO CT BIOPSY,WILL HOLD OFF STARTING GTUBE FEEEDING NEED TO BE NPO FOR PROCEDURE,PRIMARY RN MADE AWARE.
--- NOTE | 2019-10-27 11:14 | NUR ---
NICHOL RN NOTES PT HAS CT OF BIOPSY ORDERED OF THE KIDNEY DUE TO ABD RESULTS R/O REJECTION OF KIDNEY
[2019-10-27] MEDS ORDERED: FENTANYL PF 250MCG/5ML AMPUL IV ONE (12:30)
[2019-10-27] MEDS ORDERED: NALOXONE PREFILLED SYRINGE 2 MG/2 ML SYRINGE IV ONE (12:30)
[2019-10-27] MEDS ORDERED: MIDAZOLAM HCL 5MG/ML VIAL 25 MG/5 ML VIAL IV ONE (12:30)
--- NOTE | 2019-10-27 13:08 | NUR ---
PATIENT POSITIVE MRSA BLOOD ,DR. FLORES MAKING ROUNDS MADE AWARE,PT. ON ANTIBIOTIC ALREADY.NO NEW ORDERS.
--- NOTE | 2019-10-27 13:15 | NUR ---
NICHOL RN NOTES CT BIOPSY WAS CANCELLED RADIOLOGIST AND PHYSICIAN ARE AWARE
--- NOTE | 2019-10-27 13:16 | NUR ---
TWINU RN NOTES PT IS POSITIVE FOR MRSA
--- NOTE | 2019-10-27 14:05 | NUR ---
CT GUIDED RESULT RELAYED BY DR. RAWLS TO RENAL MD DR. MARTIN.PER RENAL SCHEDULE FOR HEMODIALYSIS TODAY.
[2019-10-27 15:03] LABS: CALCIUM, SERUM 6.9 mg/dL (8.5-10.1); CREATININE 7.1 mg/dL (0.6-1.3); POTASSIUM 4.7 mmol/L (3.5-5.1)
--- NOTE | 2019-10-27 15:29 | NUR ---
NICHOL RN NOTES CARI FROM LAB CALLED IN REGARDS TO CRITICAL LAB FRO BUN AND CR WAITING FOR DIALYSIS NURSE
[2019-10-27 16:11] LABS: *SPE A/G RATIO 0.7 (0.7-1.7); *SPE ALPHA-1-GLOBULIN 0.6 g/dL (0.0-0.4); *SPE ALPHA-2-GLOBULIN 0.8 g/dL (0.4-1.0); *SPE BETA GLOBULIN 0.8 g/dL (0.7-1.3); *SPE GLOBULIN, TOTAL 2.9 g/dL (2.2-3.9); *SPE M-SPIKE 0.1 g/dL (Not Observed); *SPEGAMMA GLOBULIN 0.7 g/dL (0.4-1.8)
[2019-10-27] MEDS ORDERED: VANCOMYCIN 1 GM in IV D5W 250 ML IV ONE (17:00)
[2019-10-27] MEDS: NEPRO 1,000 ML BOTTLE GT PRN (17:37)
--- NOTE | 2019-10-27 18:17 | NUR ---
NICHOL RN CLOSING NOTES: Pt RESTING IN BED. PT IS ON MECHANICAL VENTILATOR.. No SOB or respiratory distress noted throughout shift. No acute changes noted throughout shift. SR on tele monitor. Isolation precautions in place. All meds administered as prescribed.PT IS DRY AND CLEAN. WOUND CARE WERE IMPLEMENTED. BED IN THE LOWEST POSITION AND RAILS ARE UP X2. CALL LIGHT WITHIN REACH. WILL ENDORSE TO NIGHTSHIFT FOR LEVI.
--- NOTE | 2019-10-27 19:40 | NUR ---
RN NOTE RECEIVED PT IN BED, OBTUNDED. NO S/SX OF ACUTE DISTRESS AT THIS TIME. PATIENT ON TRACHE PORTEX #8 CONNECTED TO MECHANICAL VENTILATOR ON AC MODE WITH SETTINGS ORDERED, SATURATING AT 100%. PATIENT ON TELE MONITORING READING SR, HR IS 82. NOTED IV SITE AT RFA G18, AND R WRIST G22; PATENT AND FLUSHING WELL , NO S/S OF INFECTION OR INFILTRATION. NOTED RIGHT FEMORAL HD CATH, INTACT. SAFETY MEASURES IMPLEMENTED PER PROTOCOL. PATIENT BED ALARM IS ON. HEAD OF BED ELEVATED. BED IS LOCKED, IN LOWEST POSITION AND SIDE RAILS UP. CALL LIGHT WITHIN REACH OF THE PATIENT. WILL CONTINUE TO MONITOR AND REASSESS FOR ANY CHANGES. Addendum: 10/28/19 at 0543 by OLEG MARTINEZ RN NOTED INDWELLING BELLAMY CATHETER CONNECTED TO URINE BAG INTACT WITH MINIMAL, CLEAR, YELLOW OUTPUT. NOTED DVT PUMPS IN PLACE ON BLE.
--- NOTE | 2019-10-27 19:45 | NUR ---
1944 CRITICAL BLOOD CULTURE RESULT GRAM + COCCI RELAYED TO GIANLUCA HINTON WITH NO ORDER MADE.
--- NOTE | 2019-10-27 19:45 | NUR ---
RN NOTE NOTED BLOOD CULTURE RESULT GRAM+ COCCI, RELAYED TO GIANLUCA HINTON BY CONTROL PANEL TESTER, NO NEW ORDERS MADE.
--- NOTE | 2019-10-27 20:00 | NUR ---
RN NOTE NOTED HD STARTED BY LUZ Jeronimo RN VIA AT 1999. PATIENT IN STABLE CONDITION, VITALS WNL. NO SIGNS OF DISTRESS NOTED. WILL CONTINUE TO MONITOR FOR ANY CHANGE IN CONDITION.
--- NOTE | 2019-10-27 20:00 | NUR ---
RN NOTE TELEPHONE CALL RECEIVED FROM ROD, PATIENT'S BROTHER, INQUIRING ON PATIENT STATUS. OBJECTIVE INFORMATION PROVIDED PER CHART. ACKNOWLEDGED AND VERBALIZED UNDERSTANDING.
--- NOTE | 2019-10-27 20:10 | NUR ---
RT NOTE Pt rec'd [facility] via [facility] Pt shows no signs of resp distress or sob. Trach is patent and secured. Pt sx'd for thick mod amt of pale yellow secretions. Alarms are set and audible. Vent plugged into red outlet. Ambu bag bedside. Will continue to monitor. Addendum: 10/27/19 at 2011 by BENOIT MUNROE RT Amended: Links added.
--- NOTE | 2019-10-27 22:00 | NUR ---
RN NOTE TELEPHONE CALL RECEIVED FROM ARASH, PATIENT'S BROTHER, INQUIRING ON PATIENT STATUS. OBJECTIVE INFORMATION PROVIDED PER CHART. ACKNOWLEDGED AND VERBALIZED UNDERSTANDING.
--- NOTE | 2019-10-27 22:20 | NUR ---
RN NOTE NOTED END OF HD AT 2220, 2 L OF FLUID WAS REMOVED PER LUZ BARROS RN. BP 161/105. PATIENT IN STABLE CONDITION. WILL CONTINUE TO MONITOR BP, AND CHANGE IN CONDITION.
--- NOTE | 2019-10-27 22:30 | NUR ---
426 GIANLUCA HINTON NOTIFIED OF US BLADDER RESULT WITH ORDER TO REMOVE BELLAMY CATHETER AND PLACE A NEW ONE. ORDER NOTED. SHANA DEJESUS NOTIFIED.
[2019-10-27] MEDS: IV NS 0.9% 1,000 ML IV PRN (22:37)
--- NOTE | 2019-10-27 23:00 | NUR ---
2300 BELLAMY CATHETER INSERTED ORDERED. PATIENT TOLERATED PROCEDURE WELL. WILL MONITOR FOR URINE OUTPUT.
--- NOTE | 2019-10-27 23:00 | NUR ---
RN NOTE NOTED NEW ORDER FOR FC REPLACEMENT FROM GIANLUCA HINTON. OLD CATHETER REMOVED AND REPLACED ASEPTICALLY WITH FC 16FR. PATIENT TOLERATED THE PROCEDURE WELL. WILL CONTINUE TO MONITOR, AND REASSESS. Addendum: 10/27/19 at 2357 by OLEG MARTINEZ RN NO URINE OUTPUT NOTED. GIANLUCA HINTON MADE AWARE. ORDERED BLADDER SCAN IF NO URINE OUTPUT IN 4-6 HOURS.
--- NOTE | 2019-10-27 23:25 | NUR ---
2652 GIANLUCA DIASAN WAS NOTIFIED THAT NO URINE OUTPUT NOTED WHEN F/C INSERTED, AND RESISTANCE MET. PER HER DO BLADDER SCAN IF NO URINE OUTPUT IN 4-6 HOURS.
[2019-10-28] VITALS: BP 162/97
--- NOTE | 2019-10-28 | NUR ---
NOTED WITH 60ML OF PATRICIA URINE IN DRAINAGE BAG.
--- NOTE | 2019-10-28 02:15 | NUR ---
RN NOTED WOUND TREATMENT TO SACRUM, SCROTUM AND PERIANAL DONE ORDERED. URINE SPECIMEN FOR CULTURE COLLECTED ASEPTICALLY VIA SAMPLING PORT. SEALED, AND PROPERLY LABELED. CALLED [facility], SPOKE WITH RUBEN, NOTIFIED OF URINE COLLECTION FOR QA ARCHITECT.
[2019-10-28 04:00] VITALS: BP 161/82
--- NOTE | 2019-10-28 05:00 | NUR ---
RN NOTE NOTED TEMP OF 100.1F AT 0400. COOLING MEASURES PROVIDED. ICE PACKS PLACED ON BOTH AXILLA. COLD COMPRESS PLACED OVER FOREHEAD. TEMP RECHECKED AT 0430 AND REVEALED 100F. PRN TYLENOL 650 MG GIVEN ORDERED. CONTINUED TO PROVIDE COOLING MEASURES. NO SIGN ACUTE OF DISTRESS NOTED AT THIS TIME. TEMP RECHECKED AT 0500 AND REVEALED 99.2F. WILL CONTINUE TO MONITOR.
[2019-10-28] MEDS: clonazePAM 0.5 MG TABLET GT SCH ×3 (05:04→20:27)
[2019-10-28] MEDS: ACETAMINOPHEN 325 MG TABLET PO PRN ×2 (05:05→18:38)
--- NOTE | 2019-10-28 05:16 | NUR ---
0516 NOTED WITH 250ML OF PATRICIA URINE IN DRAINAGE BAG.
[2019-10-28] MEDS ORDERED: VANCOMYCIN 500 MG in IV D5W 100 ML IV PRN (07:00)
--- NOTE | 2019-10-28 07:11 | NUR ---
RN NOTE PATIENT REMAINS IN ROOM. NO SIGNS OF RESPIRATORY/ACUTE DISTRESS NOTED. GTUBE FEEDING RUNNING AT 20 ML/HR, NS AT 100 ML/HR AT RIGHT WRIST. LATEST TEMP 99.2. SAFETY MEASURES IMPLEMENTED, BED IN LOWEST POSITION, LOCKED, SIDE RAILS UPX3, CALL LIGHT WITHIN REACH. ENDORSED TO ROMEL SALDANA FOR CONTINUITY OF CARE.
--- NOTE | 2019-10-28 07:50 | NUR ---
NICHOL RN OPENING NOTES: RECEIVED PT IN BED.PT IS OBTUNDED AND ON MECHANICAL VENTILATION . TOLERATING WELL AND SATURATED 100 .NO SOB OF RESPIRATORY DISTRESS IS NOTED. PT IS ON ISOLATION PRECAUTION. COVID TEST WAS DONE ON 10/25 IS STILL PENDING. IV site on RFA #18 INTACT and WELL FLUSHED R fem HD cath and NAKITA AV shunt noted IS NOT WORKING .PT IS GETTING NEPHRO @ 20 ML/HR. SAFETY MEASUREMENT ARE IMPLEMENTED.BED IN LOWEST POSITION. RAILS ARE UP X2. CALL LIGHT WITHIN THE REACH . WILL CONTINUE TO MONITOR.
[2019-10-28 08:00] VITALS: BP 148/83
[2019-10-28 08:00] LABS: BASOPHILS # (AUTO) 0.1 /CMM (0.0-0.2); BASOPHILS % (AUTO) 0.3 % (0.0-2.0); EOSINOPHILS % (AUTO) 0.1 % (0.0-6.0); HEMATOCRIT 27 % (39-51); HEMOGLOBIN 8.8 g/dL (13.5-17.5); LYMPHOCYTES # (AUTO) 0.2 /CMM (0.8-4.8); LYMPHOCYTES % (AUTO) 0.8 % (20.0-44.0); MEAN CORPUSCULAR HGB CONC 33 g/dl (31.0-36.0); MEAN CORPUSCULAR VOLUME 88 fL (80-96); MONOCYTES # (AUTO) 1.4 /CMM (0.1-1.30); MONOCYTES % (AUTO) 5.7 % (2.0-12.0); NEUTROPHILS % (AUTO) 93.1 % (43.0-81.0); PLATELET COUNT (AUTO) 339 /CMM (150-450); RED BLOOD CELL COUNT(AUTO) 3.06 MIL/uL (4.5-6.0); WHITE BLOOD COUNT (AUTO) 24.7 K/uL (4.3-11.0)
[2019-10-28 08:03] LABS: ALBUMIN 1.9 g/dL (3.4-5.0); CALCIUM, SERUM 7.7 mg/dL (8.5-10.1); CREATININE 4.5 mg/dL (0.6-1.3); MAGNESIUM 2.6 mg/dL (1.8-2.4); PHOSPHORUS 3.4 mg/dL (2.5-4.9); POTASSIUM 3.2 mmol/L (3.5-5.1); TOTAL PROTEIN, SERUM 6.2 g/dL (6.4-8.2)
[2019-10-28] MEDS: FERROUS SULFATE UDC 300 MG/5 ML UDC GT SCH (08:12)
[2019-10-28] MEDS: DEXAMETHASONE SOD PHOSPHATE 10 MG/ML VIAL IV SCH (08:13)
[2019-10-28] MEDS: TRAMADOL HCL 50 MG TABLET GT SCH ×2 (08:13→17:23)
[2019-10-28] MEDS: LABETALOL HCL (100MG) 100 MG TABLET GT SCH ×2 (08:14→20:29)
[2019-10-28] MEDS: ZINC SULFATE 220 MG CAPSULE GT SCH (08:14)
[2019-10-28] MEDS: LEVETIRACETAM SOL (5 ML) 100 MG/ML UDC GT SCH ×2 (08:14→20:27)
[2019-10-28] MEDS: PROSOURCE / PROSTAT (PYXIS) 30 ML UDC GT SCH (08:15)
[2019-10-28] MEDS: DAKINS QUARTER STRENGTH (0.125%) 480 ML BOTTLE TOP SCH (08:16)
--- NOTE | 2019-10-28 10:55 | NUR ---
NICHOL RN NOTES DIALYSIS NURSE TERRANCE ON THE BED SIDE STARTED DIALYSIS PT IS STABLE.
--- NOTE | 2019-10-28 11:00 | NUR ---
NICHOL RN NOTES PT IS RECEIVING DIALYSIS AND POTASSIUM IS 3.2.DOCTOR DOING ROUNDS AWARE LABS.
[2019-10-28 12:00] VITALS: BP 172/97
[2019-10-28 13:07] LABS: *HGBFRC HEMOGLOBIN A2 1.6 % (1.8-3.2)
--- NOTE | 2019-10-28 13:30 | NUR ---
NICHOL RN NOTES DIALYSIS NURSE IS DONE TERRANCE AND 2 L WAS OUT. PT TOLERATED WELL
[2019-10-28 16:00] VITALS: BP 152/64
[2019-10-28] MEDS: cycloSPORINE SOLUTION 500 MG/5 ML UDC GT SCH (17:23)
--- NOTE | 2019-10-28 18:00 | NUR ---
NICHOL RN NOTES PT IS RUNNING FEVEROF 100.2. ICE PACK AND TYLENOL WAS GIVEN
--- NOTE | 2019-10-28 18:36 | NUR ---
NICHOL RN NOTES PT 'S FEVER HASNT GONE DOWN STILL 100.2
--- NOTE | 2019-10-28 19:35 | NUR ---
NICHOL RN CLOSING NOTES: PT IS IN THE BED .PT IS OBTUNDED AND ON MECHANICAL VENTILATION . TOLERATING WELL AND SATURATED 100 .NO SOB OF RESPIRATORY DISTRESS IS NOTED. PT IS ON ISOLATION PRECAUTION. COVID TEST WAS DONE ON 10/25 IS STILL PENDING. IV site on RFA #18 INTACT and WELL FLUSHED R fem HD cath and NAKITA AV shunt noted IS NOT WORKING .PT IS GETTING NEPHRO @ 20 ML/HR. SAFETY MEASUREMENT ARE IMPLEMENTED.BED IN LOWEST POSITION. RAILS ARE UP X2. CALL LIGHT WITHIN THE REACH . WILL ENFORCE TO NIGHTSHIFT FOR LEVI
--- NOTE | 2019-10-28 19:40 | NUR ---
RN OPENING NOTES RECEIVED PT IN THE BED IN SEMI-FOWLERS POSITION. PT IS OBTUNDED, ON MECHANICAL VENTILATION TOLERATING CURRENT VENT SETTINGS. NO S/S OF RESPIRATORY DISTRESS AT THIS TIME. PT ON ISOLATION PRECAUTION. IV TO RFA #18 PATENT, INTACT AND FLUSHING WELL. RT FEMORAL CATH PATENT AND INTACT. PT ON GTF, NEPRO CURRENTLY AT 30 ML/HR. SAFETY MEASUREMENT ARE IMPLEMENTED. BED IN LOWEST POSITION. SIDE RAILS UP X2. CALL LIGHT WITHIN THE REACH. WILL CONTINUE TO MONITOR PT.
[2019-10-28 20:00] VITALS: BP 148/88
[2019-10-28] MEDS: IV NS 0.9% 1,000 ML IV PRN (20:19)
[2019-10-28] MEDS: LINEZOLID 600 MG TABLET PO SCH (20:27)
[2019-10-28] MEDS: MEROPENEM 500 MG in IV NS 0.9% 50 ML IV SCH (22:03)
[2019-10-29] VITALS (11 sets, daily range): BP systolic 139–167; BP diastolic 81–101
--- NOTE | 2019-10-29 03:53 | NUR ---
RT NOTE Pt rec'd trached via portex 7 [facility] mode. Pt shows no signs of resp distress or sob. Trach is patent and secured. Pt sx'd for thick mod amt of pale yellow secretions. Alarms are set and audible. Vent plugged into red outlet. Ambu bag bedside. Will continue to monitor. Addendum: 10/29/19 at 0353 by BENOIT MUNROE RT Amended: Links added.
[2019-10-29] MEDS: clonazePAM 0.5 MG TABLET GT SCH ×3 (04:58→21:00)
[2019-10-29 06:38] LABS: BASOPHILS % (AUTO) 0.1 % (0.0-2.0); HEMATOCRIT 21 % (39-51); LYMPHOCYTES # (AUTO) 0.3 /CMM (0.8-4.8); LYMPHOCYTES % (AUTO) 1.3 % (20.0-44.0); MEAN CORPUSCULAR HGB CONC 33 g/dl (31.0-36.0); MEAN CORPUSCULAR VOLUME 88 fL (80-96); MONOCYTES # (AUTO) 1.2 /CMM (0.1-1.30); NEUTROPHILS # (AUTO) 18.9 /CMM (1.8-8.9); NEUTROPHILS % (AUTO) 92.6 % (43.0-81.0); PLATELET COUNT (AUTO) 322 /CMM (150-450); RED BLOOD CELL COUNT(AUTO) 2.43 MIL/uL (4.5-6.0); WHITE BLOOD COUNT (AUTO) 20.5 K/uL (4.3-11.0)
[2019-10-29 06:58] LABS: CALCIUM, SERUM 7.3 mg/dL (8.5-10.1); POTASSIUM 3.4 mmol/L (3.5-5.1)
--- NOTE | 2019-10-29 06:59 | NUR ---
RN CLOSING NOTE PT IN THE BED CURRENTLY IN SEMI-FOWLERS POSITION. SR ON MONITOR, PT IS OBTUNDED, ON MECHANICAL VENTILATION AND TOLERATING CURRENT VENT SETTINGS. NO S/S OF RESPIRATORY DISTRESS THROUGHOUT SHIFT. IV TO RFA #18 PATENT, INTACT AND FLUSHING WELL. NS INFUSING AT 100 ML/HR, RT FEMORAL CATH PATENT AND INTACT. PT ON GTF NEPRO CURRENTLY AT 30 ML/HR AND TOLERATING WELL. BELLAMY CATH PATENT AND IN PLACE, PT AFEBRILE DURING SHIFT. SAFETY MEASURES IN PLACE, BED LOCKED AND IN LOWEST POSITION, SIDE RAILS UP X2. CALL LIGHT WITHIN REACH. ENDORSED TO AM RN FOR LEVI.
--- NOTE | 2019-10-29 08:06 | NUR ---
NICHOL RN OPENING NOTES: RECEIVED PT IN BED.PT IS OBTUNDED AND ON MECHANICAL VENTILATION . TOLERATING WELL AND SATURATED 100 .NO SOB OF RESPIRATORY DISTRESS IS NOTED. PT IS ON ISOLATION PRECAUTION. COVID TEST WAS DONE ON 10/25 IS STILL PENDING. IV site on RFA #18 INTACT and WELL FLUSHED R fem HD cath and NAKITA AV shunt noted IS NOT WORKING .PT IS GETTING NEPHRO @ 45 ML/HR. SAFETY MEASUREMENT ARE IMPLEMENTED.BED IN LOWEST POSITION. RAILS ARE UP X2. CALL LIGHT WITHIN THE REACH . WILL CONTINUE TO MONITOR.
--- NOTE | 2019-10-29 08:09 | NUR ---
NICHOL RN NOTES LAB CALLED HGB IS 7.[address] WAGNER IF HE WOULD LIKE TO RE DRAW THE LAB.
--- NOTE | 2019-10-29 08:35 | NUR ---
NICHOL RN OPENING NOTES: [facility] THE ORDER OF PERCUTANEOUS NEPHROLOGY CALLED [employer] BLOCK FLOOR INSTALLER BRADLEY INFORMED IN REGARDS TO LAB OF POTASSIUM 3.2 AND HGB 7.0L INFORMED ABOUT FEEDING THEN I STOPPED THE FEEDING BECAUSE IT WILL TAKE UP TO 4 HOURS TO PERFORM THE PROCEDURE.. DR RAWLS WILL TALKK TO DR WEINER IN REGARDS TO HIS LABS
--- NOTE | 2019-10-29 09:04 | NUR ---
NICHOL RN NOTES DR OREILLY MAKING ROUND. INFORMED IN REGARDS TO [facility]G IS 7.0 L WANTS TO RE DRAW AT 10:00 AM AND FOR POTASSIUM IS 3. 4L TO GIVE POTASSIUM 20 MEQ.
[2019-10-29] MEDS ORDERED: Potassium Chloride 10 MEQ, LIDOCAINE HCL/PF 1% 1 ML in IV D5W 50 ML IV SCH (09:30)
[2019-10-29] MEDS: ZINC SULFATE 220 MG CAPSULE GT SCH (09:32)
[2019-10-29] MEDS: TRAMADOL HCL 50 MG TABLET GT SCH ×2 (09:32→17:38)
[2019-10-29] MEDS: GABAPENTIN 100 MG CAPSULE GT SCH (09:32)
[2019-10-29] MEDS: LINEZOLID 600 MG TABLET PO SCH ×2 (09:32→21:22)
[2019-10-29] MEDS: LEVETIRACETAM SOL (5 ML) 100 MG/ML UDC GT SCH ×2 (09:32→21:22)
[2019-10-29] MEDS: FERROUS SULFATE UDC 300 MG/5 ML UDC GT SCH (09:32)
[2019-10-29] MEDS: LABETALOL HCL (100MG) 100 MG TABLET GT SCH ×2 (09:33→21:00)
[2019-10-29] MEDS: DEXAMETHASONE SOD PHOSPHATE 10 MG/ML VIAL IV SCH (09:34)
[2019-10-29] MEDS: DAKINS QUARTER STRENGTH (0.125%) 480 ML BOTTLE TOP SCH (09:35)
[2019-10-29] MEDS: PROSOURCE / PROSTAT (PYXIS) 30 ML UDC GT SCH (09:35)
[2019-10-29] MEDS: cycloSPORINE SOLUTION 500 MG/5 ML UDC GT SCH ×2 (10:52→17:38)
[2019-10-29] MEDS: Potassium Chloride 10 MEQ, LIDOCAINE HCL/PF 1% 1 ML in IV NS 0.9% 50 ML IV SCH ×2 (11:21→12:42)
[2019-10-29] MEDS ORDERED: MEROPENEM 500 MG in IV NS 0.9% 50 ML IV SCH (12:00)
--- NOTE | 2019-10-29 12:35 | NUR ---
ATTEMPTED TO DO THE EXAM AT 12:00 , PT'S DIPPER WAS FULL AND DIRTY UP TO HIS UMBILICAL AREA. NOT ABLE TO DO THE EXAM. RN/ROMEL WAS NOTIFIED.
[2019-10-29 12:44] LABS: HEMOGLOBIN 6.8 g/dL (13.5-17.5)
--- NOTE | 2019-10-29 13:00 | NUR ---
NICHOL RN NOTES DR WAGNER ORDERED 1 UNIT OF BLOOD
[2019-10-29] MEDS ORDERED: GELATIN SPONGE,ABSORBABLE 1 SPONGE SPONGE TP ONE (13:26)
--- NOTE | 2019-10-29 14:30 | NUR ---
NICHOL RN NOTES BLOOD IS READY.
--- NOTE | 2019-10-29 15:19 | NUR ---
PER DR. RAWLS to hold off on exam
--- NOTE | 2019-10-29 15:25 | NUR ---
Per Dr. Kaba to hold off on percutaneous exam until further notice
--- NOTE | 2019-10-29 15:30 | NUR ---
NICHOL RN NOTES READY TO GIVE 1 UNIT BLOOD
--- NOTE | 2019-10-29 15:42 | NUR ---
NICHOL RN NOTES CHECKED INITIAL VS ARE WNL. GOING TO CHECK IN 15, 15 AND 30 MIN. PT HAS NO FEVER
--- NOTE | 2019-10-29 18:44 | NUR ---
NICHOL RN NOTES BLOOD IS DONE.PT TOLERATED WELL.
--- NOTE | 2019-10-29 18:50 | NUR ---
NICHOL RN NOTES GURMEET CALLED PHARMACY TO REINFORCE TO TEAM LEADER SURGERY FOR 20:00 GENTAMICIN
--- NOTE | 2019-10-29 18:52 | NUR ---
NICHOL RN CLOSING NOTES: PT IS IN THE BED .PT IS OBTUNDED AND ON MECHANICAL VENTILATION . BLOOD TOLERATING WELL AND SATURATED 100 .NO SOB OF RESPIRATORY DISTRESS IS NOTED. PT IS ON ISOLATION PRECAUTION. COVID TEST WAS DONE ON 10/25 IS STILL PENDING. IV site on RFA #18 INTACT and WELL FLUSHED R fem HD cath and NAKITA AV shunt noted IS NOT WORKING .PT IS GETTING NEPHRO @ 30 ML/HR. SAFETY MEASUREMENT ARE IMPLEMENTED.BED IN LOWEST POSITION. RAILS ARE UP X2. CALL LIGHT WITHIN THE REACH . PER DR WEINER US OF BLADDER WAS DONE BY [facility] TO DETECT THE PLACEMENT OF BELLAMY CATH. PER ORDER PT NEEDS TO BE ON NPO STARTING POST MIDNIGHT AND NO ANTICOAGULANT FOR TOMORROW PROCEDURE. Addendum: 10/29/19 at 1917 by ROMEL NICOLE RN NICHOL RN NOTES PER DR WEINER US OF BLADDER WAS DONE AND I TEXTED TO HE IS AWARE. IN REGARDS TO SEIZURE HE ORDERED [facility] WILL FOLLOW UP THE ONE TIME OR PRN.MEDS ARE GIVEN PT IS DRY. PT IS MOVED TO ANOTHER ROOM. ARMAAN
[2019-10-29] MEDS ORDERED: FEE PK DOSING 1 MIN EA MC ONE (18:57)
[2019-10-29] MEDS ORDERED: LORAZEPAM INJ 2 MG/ML VIAL IV PRN (19:30)
[2019-10-29] MEDS: NEPRO 1,000 ML BOTTLE GT PRN (19:38)
[2019-10-29] MEDS ORDERED: LORAZEPAM INJ 2 MG/ML VIAL IV ONE (20:00)
[2019-10-29] MEDS ORDERED: GENTAMICIN 90 MG in IV D5W 100 ML IV ONE (20:00)
--- NOTE | 2019-10-29 20:01 | NUR ---
RN OPENING NOTE RECEIVED PT IN BED.PT IS OBTUNDED. PT IS ON MECHANICAL VENTILATION VIA TRACH SATING 100% NO S/S OF RESPIRATORY DISTRESS NOTED. PT HAS IV on RFA 18 G INTACT and FLUSHES WELL. PT HAS R FEMORAL HD cath .PT HAS G TUBE PATENT AND NO RESIDUAL NOTED ,NEPHRO RUNNING @ 30 ML/HR. PT HAS BELLAMY DRAINING URINE.SAFETY MEASURES IN PLACE .BED IN LOWEST POSITION, LOCKED SIDE RAILS UP X2, HOB ELEVATED CALL LIGHT WITHIN THE REACH . WILL CONTINUE TO MONITOR.
--- NOTE | 2019-10-29 21:24 | NUR ---
nursing note labetalol and clonazepam non administered because HR is 55.
[2019-10-30] VITALS (39 sets, daily range): BP systolic 0–179; BP diastolic 0–120
[2019-10-30] MEDS: IV NS 0.9% 1,000 ML IV PRN ×2 (03:52→16:27)
[2019-10-30] MEDS: clonazePAM 0.5 MG TABLET GT SCH ×3 (05:00→21:06)
--- NOTE | 2019-10-30 05:55 | NUR ---
RN NOTE clonazepam NOT GIVEN BECAUSE HR IS 59.
[2019-10-30 07:10] LABS: BASOPHILS % (AUTO) 0.1 % (0.0-2.0); HEMATOCRIT 25 % (39-51); HEMOGLOBIN 8.1 g/dL (13.5-17.5); LYMPHOCYTES # (AUTO) 0.5 /CMM (0.8-4.8); LYMPHOCYTES % (AUTO) 2.8 % (20.0-44.0); MEAN CORPUSCULAR HGB CONC 32 g/dl (31.0-36.0); MEAN CORPUSCULAR VOLUME 91 fL (80-96); MONOCYTES # (AUTO) 1.3 /CMM (0.1-1.30); MONOCYTES % (AUTO) 7.1 % (2.0-12.0); PLATELET COUNT (AUTO) 347 /CMM (150-450); RED BLOOD CELL COUNT(AUTO) 2.75 MIL/uL (4.5-6.0); WHITE BLOOD COUNT (AUTO) 18.9 K/uL (4.3-11.0)
--- NOTE | 2019-10-30 07:13 | NUR ---
RN CLOSING NOTE PT REMAINS STABLE DURING MY SHIFT, ENDORSED TO INCOMING SHIFT FOR LEVI.
--- NOTE | 2019-10-30 07:39 | NUR ---
RN OPENING NOTES RECEIVED PATIENT RESTING IN BED COMFORTABLY, NO S/SX OF DISTRESS. PT IS OBTUNDED, NON-VERBAL, AND BED BOUND. HE IS ON MECH VENT VIA PORTEX 8 TRACH, TOLERATING SETTINGS WELL. TELE MONITOR SHOWING SR. SKIN IS NOT INTACT, SACRAL STAGE 3 PRESENT, WILL ADDRESS PER WOUND CARE PLAN. IV SITE ON RFA 18 G AND R FEMORAL HD CATH, INFUSING NS AT 100 ML.HR. CONTACT AND DROPLET ISO HAVE BEEN IMPLEMENTED AND ENFORCED FOR COVID. SAFETY MEASURES HAVE BEEN IMPLEMENTED, CALL LIGHT IS WITHIN REACH, BED IS IN LOWEST AND LOCKED POSITION, SIDE RAILS UP X2, WILL CONTINUE TO MONITOR FOR ANY CHANGES.
[2019-10-30 07:49] LABS: CALCIUM, SERUM 7.6 mg/dL (8.5-10.1); CREATININE 5.1 mg/dL (0.6-1.3); POTASSIUM 4.2 mmol/L (3.5-5.1)
[2019-10-30] MEDS: cycloSPORINE SOLUTION 500 MG/5 ML UDC GT SCH ×3 (09:00→17:13)
[2019-10-30] MEDS: DEXAMETHASONE SOD PHOSPHATE 10 MG/ML VIAL IV SCH ×2 (09:00→09:56)
[2019-10-30] MEDS: TRAMADOL HCL 50 MG TABLET GT SCH ×3 (09:00→17:13)
[2019-10-30] MEDS: DAKINS QUARTER STRENGTH (0.125%) 480 ML BOTTLE TOP SCH (09:00)
[2019-10-30] MEDS: LABETALOL HCL (100MG) 100 MG TABLET GT SCH ×3 (09:00→21:08)
[2019-10-30] MEDS: PROSOURCE / PROSTAT (PYXIS) 30 ML UDC GT SCH ×2 (09:00→10:00)
[2019-10-30] MEDS: FERROUS SULFATE UDC 300 MG/5 ML UDC GT SCH ×2 (09:00→09:55)
[2019-10-30] MEDS: ZINC SULFATE 220 MG CAPSULE GT SCH ×2 (09:00→09:56)
[2019-10-30] MEDS: LEVETIRACETAM SOL (5 ML) 100 MG/ML UDC GT SCH ×3 (09:00→21:06)
[2019-10-30] MEDS: LINEZOLID 600 MG TABLET PO SCH ×3 (09:00→21:06)
[2019-10-30] MEDS ORDERED: LORAZEPAM INJ 2 MG/ML VIAL IV STA (11:37)
[2019-10-30] MEDS ORDERED: DEXTROSE 50%-WATER 50 ML DISP.SYRIN ONE (12:35)
[2019-10-30] MEDS ORDERED: SODIUM BICARBONATE SYR 50 MEQ/50 ML DISP.SYRIN ONE (12:35)
[2019-10-30] MEDS ORDERED: CALCIUM CHLORIDE 1,000 MG/10 ML DISP.SYRIN ONE (12:35)
[2019-10-30] MEDS ORDERED: EPINEPHRINE (1:10,000) SYRINGE 1 MG/10 ML DISP.SYRIN ONE (12:35)
[2019-10-30] MEDS ORDERED: AMIODARONE 450 MG in IV D5W 250 ML IV PRN (14:30)
--- NOTE | 2019-10-30 14:40 | NUR ---
ICU/RN: RECEIVED PT FROM [facility] S/P PLATING TANK OPERATOR APPRENTICE AND CODE BLUE. PT TRACH (POTEX 8) TO VENT WITH SETTINGS ORDERED. PT OPENS EYES, DOES NOT FOLLOW COMMANDS, HOWEVER, PT BACK TO BASELINE. SEIZURE ACTIVITY NOTED, PRN ATIVAN WILL BE GIVEN. SINUS ON TELE, AMIO INFUSING ORDERED. BELLAMY CATH IN PLACE, DRAINING URINE. RIGHT FEMORAL HD CATH IN PLACE, ORDERS RECEIVED FOR PICC LINE. BROTHER OF PT NOTIFIED AND UPDATES GIVEN. PT AGITATED, PULLING OUT LINES, BILATERAL SOFT WRIST RESTRAINTS PLACED, WILL MONITOR PER PROTOCOL. ALL NEEDS WILL BE ATTENDED TO, SAFETY MEASURES TAKEN, BED IN LOW POSITION, SIDE RAILS UP, CALL LIGHT WITHIN REACH.
[2019-10-30] MEDS ORDERED: NOREPINEPHRINE 8 MG in IV NS 0.9% 242 ML IV PRN (15:00)
[2019-10-30] MEDS: LORAZEPAM INJ 2 MG/ML VIAL IV PRN ×2 (15:17→18:06)
[2019-10-30 15:23] LABS: BASOPHILS # (AUTO) 0.2 /CMM (0.0-0.2); BASOPHILS % (AUTO) 0.6 % (0.0-2.0); EOSINOPHILS % (AUTO) 0.3 % (0.0-6.0); HEMATOCRIT 26 % (39-51); LYMPHOCYTES # (AUTO) 0.4 /CMM (0.8-4.8); LYMPHOCYTES % (AUTO) 1.5 % (20.0-44.0); MEAN CORPUSCULAR HGB CONC 31 g/dl (31.0-36.0); MEAN CORPUSCULAR VOLUME 93 fL (80-96); MONOCYTES # (AUTO) 1.4 /CMM (0.1-1.30); MONOCYTES % (AUTO) 4.8 % (2.0-12.0); NEUTROPHILS # (AUTO) 27.5 /CMM (1.8-8.9); NEUTROPHILS % (AUTO) 92.8 % (43.0-81.0); PLATELET COUNT (AUTO) 355 /CMM (150-450); RED BLOOD CELL COUNT(AUTO) 2.77 MIL/uL (4.5-6.0); WHITE BLOOD COUNT (AUTO) 29.7 K/uL (4.3-11.0)
[2019-10-30] MEDS: PROPOFOL 100 ML IV PRN (15:30)
--- NOTE | 2019-10-30 15:35 | NUR ---
RN NOTES PT HAS BEEN TRANSFERRED TO ROOM 253 FOLLOWING CARDIAC ARREST. TRANSFER REPORT GIVEN TO ROYA SALDANA FOR LEVI. PT BROTHER MADE AWARE.
[2019-10-30 15:43] LABS: ALBUMIN 1.8 g/dL (3.4-5.0); CALCIUM, SERUM 9.1 mg/dL (8.5-10.1); CREATININE 3.5 mg/dL (0.6-1.3); MAGNESIUM 2.3 mg/dL (1.8-2.4); PHOSPHORUS 5.2 mg/dL (2.5-4.9); POTASSIUM 3.4 mmol/L (3.5-5.1); TOTAL PROTEIN, SERUM 5.6 g/dL (6.4-8.2)
[2019-10-30 16:39] LABS: BAND % (MANUAL) 5 % (0.0-5.0); LYMPHOCYTES % (MANUAL) 1 % (16-48); MONOCYTES % (MANUAL) 7 % (0-11.0); NEUTROPHILS % (MANUAL) 87 (42-76)
[2019-10-30 17:27] LABS: MAGNESIUM 2.3 mg/dL (1.8-2.4); PHOSPHORUS 5.3 mg/dL (2.5-4.9)
[2019-10-30] MEDS ORDERED: GENTAMICIN 80 MG in IV D5W 50 ML IV PRN (19:00)
[2019-10-30 19:16] LABS: BILIRUBIN,DIRECT 0.4 mg/dL (0.0-0.2)
--- NOTE | 2019-10-30 19:40 | NUR ---
RN NOTE RECEIVED PT IN BED, OBTUNDED. NO S/SX OF ACUTE DISTRESS AT THIS TIME. PATIENT ON TRACHE PORTEX #8 CONNECTED TO MECHANICAL VENTILATOR ON AC MODE, TV 600, FIO2 100%, PEEP 5, SATURATING AT 100%. PATIENT ON TELE ELECTRICAL RESEARCH ENGINEER READING SR, HR IS 88. NOTED EMORY TLC PICC LINE, PATENT AND FLUSHING WELL , NO S/S OF INFECTION OR INFILTRATION. NOTED R FEMORAL HD CATH IN PLACE. NOTED INDWELLING BELLAMY CATHETER CONNECTED TO URINE BAG INTACT WITH MINIMAL, CLEAR, YELLOW OUTPUT. NOTED DVT PUMPS IN PLACE ON BLE. SAFETY MEASURES IMPLEMENTED PER PROTOCOL. PATIENT BED ALARM IS ON. HEAD OF BED ELEVATED. BED IS LOCKED, IN LOWEST POSITION AND SIDE RAILS UP. CALL LIGHT WITHIN REACH OF THE PATIENT. WILL CONTINUE TO MONITOR AND REASSESS FOR ANY CHANGES. Addendum: 10/30/19 at 2254 by OLEG MARTINEZ RN GTUBE IN PLACE, PATENT AND FLUSHING WELL, 20 ML OF RESIDUAL NOTED.
[2019-10-30 19:59] LABS: B-TYPE NATRIURETIC PEPTIDE 51836 PG/ML (0-125)
--- NOTE | 2019-10-30 20:00 | NUR ---
RN NOTE NOTED PATIENT IRRITABLE, WITH FACIAL GRIMACING. BP 160/120 PER DATA SCOPE, PULSE AT 88. REASSESSED AND REPOSITIONED PATIENT IN BED. PRN NORCO 5-325 MG ADMINISTERED ORDERED. WILL CONTINUE TO MONITOR.
[2019-10-30] MEDS: HYDROCODONE/APAP 5/325MG 1 EACH TABLET GT PRN (20:07)
--- NOTE | 2019-10-30 21:00 | NUR ---
RN NOTE REASSESSED PATIENT FOR PAIN, NO FACIAL GRIMACING OR SIGN OF DISTRESS NOTED, BP DECREASED TO 146/95, HR AT 78. WILL CONTINUE TO MONITOR.
[2019-10-30] MEDS: NEPRO 1,000 ML BOTTLE GT PRN (21:46)
--- NOTE | 2019-10-30 21:50 | NUR ---
RN NOTE NOTED MISCELLANEOUS ORDER DATED 10/30/2019 12:35, NEPHROSTOMY PROCEDURE POSTPONED TO FRIDAY PER DR VASQUEZ, AND TO RESUME TUBE FEEDING AND MEDICATIONS. GTUBE FEEDING WITH NEPRO RESUMED, FEEDING PUMP SET AT 20 ML/HR INITIAL REGULATION WITH A GOAL OF 45 ML/HR. PATIENT TOLERATING WELL. WILL CONTINUE TO MONITOR.
[2019-10-31] VITALS (54 sets, daily range): BP systolic 42–219; BP diastolic 22–137
[2019-10-31] MEDS: hydrALAZINE HCL IV 20 MG VIAL IV PRN
--- NOTE | 2019-10-31 | NUR ---
RN NOTE NOTED PATIENT EXHIBITS FACIAL GRIMACING, AND SOME RESTLESSNESS. BP 174/103, HR AT 80. COMFORT MEASURES PROVIDED, REPOSITIONED PATIENT. PRN NORCO 5-325 MG ADMINISTERED ORDERED. WILL CONTINUE TO REASSESS.
[2019-10-31] MEDS: HYDROCODONE/APAP 5/325MG 1 EACH TABLET GT PRN (00:15)
[2019-10-31] MEDS: PROPOFOL 100 ML IV PRN ×2 (00:46→05:53)
[2019-10-31] MEDS: IV NS 0.9% 1,000 ML IV PRN ×2 (02:25→11:44)
[2019-10-31 04:55] LABS: BASOPHILS % (AUTO) 0.1 % (0.0-2.0); EOSINOPHILS % (AUTO) 0.6 % (0.0-6.0); HEMATOCRIT 24 % (39-51); HEMOGLOBIN 7.6 g/dL (13.5-17.5); LYMPHOCYTES # (AUTO) 0.7 /CMM (0.8-4.8); MEAN CORPUSCULAR HGB CONC 32 g/dl (31.0-36.0); MEAN CORPUSCULAR VOLUME 91 fL (80-96); MONOCYTES # (AUTO) 1.1 /CMM (0.1-1.30); MONOCYTES % (AUTO) 6.4 % (2.0-12.0); NEUTROPHILS # (AUTO) 15.5 /CMM (1.8-8.9); NEUTROPHILS % (AUTO) 88.9 % (43.0-81.0); PLATELET COUNT (AUTO) 297 /CMM (150-450); RED BLOOD CELL COUNT(AUTO) 2.59 MIL/uL (4.5-6.0); WHITE BLOOD COUNT (AUTO) 17.5 K/uL (4.3-11.0)
[2019-10-31 05:08] LABS: CALCIUM, SERUM 7.5 mg/dL (8.5-10.1); CREATININE 3.6 mg/dL (0.6-1.3); POTASSIUM 3.2 mmol/L (3.5-5.1)
[2019-10-31] MEDS: clonazePAM 0.5 MG TABLET GT SCH ×3 (05:15→21:05)
--- NOTE | 2019-10-31 05:23 | NUR ---
RN NOTE TELEPHONE CALL FROM Bobby DANIEL FROM [facility] REGARDING CRITICAL LAB VALUE TROPONIN LEVEL OF 0.710. NOT NOTIFIED, EXPECTED LEVEL DUE TO RECENT CODE BLUE 10/29 AT 1440. PLATE GRAINER MADE AWARE.
--- NOTE | 2019-10-31 07:11 | NUR ---
RN NOTE PATIENT REMAINS IN ROOM. NO SIGNS OF RESPIRATORY/ACUTE DISTRESS NOTED. LATEST BP 140/86. SAFETY MEASURES IMPLEMENTED, BED IN LOWEST POSITION, LOCKED, SIDE RAILS UP, CALL LIGHT WITHIN REACH. ENDORSED TO AM SHIFT RN FOR CONTINUITY OF CARE.
[2019-10-31] MEDS: LEVETIRACETAM SOL (5 ML) 100 MG/ML UDC GT SCH ×2 (08:24→20:01)
[2019-10-31] MEDS: FERROUS SULFATE UDC 300 MG/5 ML UDC GT SCH (08:24)
[2019-10-31] MEDS: TRAMADOL HCL 50 MG TABLET GT SCH ×2 (08:25→17:24)
[2019-10-31] MEDS: ZINC SULFATE 220 MG CAPSULE GT SCH (08:25)
[2019-10-31] MEDS: DEXAMETHASONE SOD PHOSPHATE 10 MG/ML VIAL IV SCH (08:26)
[2019-10-31] MEDS: DAKINS QUARTER STRENGTH (0.125%) 480 ML BOTTLE TOP SCH (08:26)
[2019-10-31] MEDS: LINEZOLID 600 MG TABLET PO SCH ×2 (08:26→21:05)
[2019-10-31] MEDS: PROSOURCE / PROSTAT (PYXIS) 30 ML UDC GT SCH (08:27)
[2019-10-31] MEDS: LABETALOL HCL (100MG) 100 MG TABLET GT SCH ×2 (08:27→21:00)
[2019-10-31] MEDS: cycloSPORINE SOLUTION 500 MG/5 ML UDC GT SCH ×2 (08:35→17:24)
[2019-10-31 08:37] LABS: ABG BASE EXCESS -1.4 mmol/L; ABG OXYGEN SATURATION 99.6 % (92.0-98.5); ABG PCO2 25.7 mmHg (35.0-45.0); ABG PH 7.526 (7.350-7.450); ABG PO2 482.3 mmHg (75.0-100.0); COHb 0.3 % (0.5-1.5); MetHb 0.3 % (0.0-1.5); SITE, ABG Right Radial; VENT MODE, BG AC 14 600 100%+5
[2019-10-31] MEDS ORDERED: POTASSIUM CHLORIDE 20 MEQ POWDER PACKET NG SCH (09:00)
[2019-10-31] MEDS: ACETAMINOPHEN 325 MG TABLET PO PRN (09:42)
[2019-10-31] MEDS: LORAZEPAM INJ 2 MG/ML VIAL IV PRN ×3 (10:00→18:50)
[2019-10-31] MEDS ORDERED: AMIODARONE 150 MG in IV D5W 100 ML IV ONE (15:30)
[2019-10-31] MEDS: AMIODARONE 450 MG in IV D5W 250 ML IV PRN ×2 (15:48→22:50)
--- NOTE | 2019-10-31 19:25 | NUR ---
RN NOTES LEVO STARTED @0.1 B/P READING 76/39, HR-91,RR-14.SPO2-91%. WILL CONT TO MONITOR CLOSELY.
--- NOTE | 2019-10-31 19:30 | NUR ---
RN NOTES RECEIVED PATIENT IN BED OBTUNDED. TRACH IN PLACE PORTEX #8 CONNECTED TO MECHANICAL VENTILATOR ON AC MODE, TV 600, FIO2-100%, PEEP OF 5 SATURATING 100% AT THIS TIME. TELE MONITOR ST. EMORY PICC LINE PATENT FLUSHING WELL, NO S/S OF INFILTRATION NOTED. RT FEMORAL HD CATH IN PLACE. BUE WITH SOFT RESTRAINT RELEASED AND CHECKED FOR CIRCULATION AND PULSE [id number]. ON GOING SKIN TREATMENT SEE FLOW SHEET FOR SKIN ASSESSMENT. F/C INTACT YELLOW URINE RUNNING TO GRAVITY. ALL SAFETY MEASURES IN PLACE, CALL LIGHT WITHIN REACH. WILL CONT TO MONITOR FOR LEVI.
[2019-10-31] MEDS: Magnesium 1GM/D5W 100ML PREMIX PIGGYBACK IV SCH ×2 (19:36→21:08)
--- NOTE | 2019-10-31 20:15 | NUR ---
ARTIFICIAL INSEMINATION TECHNICIAN NOTES BP TRENDING LOW, LEVOPHED DRIP TITRATING TOWARDS MAX DOSE. EMI HINTON NOTIFIED, WITH ORDER FOR SECOND PRESSOR, NEOSYNEPHRINE, GOAL TO KEEP SBP >90.
[2019-10-31] MEDS ORDERED: PHENYLEPHRINE 10 MG/ML VIAL ONE (20:16)
--- NOTE | 2019-10-31 20:16 | NUR ---
RN NOTES EMI HINTON CLEANER AND PRESSER NOTIFIED THAT THIS IS A HD PATIENT. NEOSYNEPHRINE DRIP ORDERED IN HIGH CONCENTRATION 100MG IN 250ML, WITH ORDER TO CHANGE LEVOPHED TO HIGH DOSE CONCENTRATION 32MG IN 250ML NS. ORDERS READ BACK FOR CLRIFICATION. PRIMARY NURSE MADE AWARE OF CHANGES AND NEW ORDERS
[2019-10-31] MEDS ORDERED: PHENYLEPHRINE 100 MG in IV NS 0.9% 240 ML IV PRN (20:30)
[2019-10-31] MEDS ORDERED: NOREPINEPHRINE 4 MG/4 ML AMPUL IV ONE ×2 (20:40→20:51)
[2019-10-31] MEDS ORDERED: NOREPINEPHRINE 32 MG in IV NS 0.9% 218 ML IV PRN (21:00)
--- NOTE | 2019-10-31 21:30 | NUR ---
CLIMATE CHANGE RISK ASSESSOR NOTES BP DIFFICULT TO READ. BP CHECKED ON ALL EXTREMITIES, READINGS INACCURATE, SOMETIMES READING XX/XX, SOMETIMES WITH SBP IN THE 70s, CURRENTLY ON LEVOPHED DRIP AT MAX RATE AND NEOSYNEPHRINE DRIP @ LOW DOSE. MANUAL BP CHECKED WITH READING 220/120. EMI HINTON LIBRARIAN HEAD NOTIFIED REGARDING INACCURATE BP READINGS CHECKED ON MULTIPLE EXTREMITIES. PER EMI, PREPARE THE PATIENT FOR ARTERIAL LINE PLACEMENT. WHILE PREPARING PATIENT FOR ARTERIAL LINE PLACEMENT, BP READINGS ON MACHINE STARTING TO MATCH WITH MANUAL BLOOD PRESSURE READINGS. EMI AGAIN NOTIFIED, A LINE PLACEMENT ON HOLD FOR NOW. WILL TITRATE PRESSORS ACCORDINGLY.
[2019-11-01] VITALS (89 sets, daily range): BP systolic 64–160; BP diastolic 29–125
[2019-11-01] MEDS: IV NS 0.9% 1,000 ML IV PRN ×3 (00:13→20:08)
[2019-11-01 04:10] LABS: BASOPHILS % (AUTO) 0.1 % (0.0-2.0); EOSINOPHILS % (AUTO) 0.1 % (0.0-6.0); HEMATOCRIT 24 % (39-51); HEMOGLOBIN 7.5 g/dL (13.5-17.5); LYMPHOCYTES # (AUTO) 0.6 /CMM (0.8-4.8); LYMPHOCYTES % (AUTO) 2.6 % (20.0-44.0); MEAN CORPUSCULAR HGB CONC 32 g/dl (31.0-36.0); MEAN CORPUSCULAR VOLUME 93 fL (80-96); MONOCYTES # (AUTO) 1.1 /CMM (0.1-1.30); MONOCYTES % (AUTO) 5.3 % (2.0-12.0); NEUTROPHILS # (AUTO) 20.1 /CMM (1.8-8.9); NEUTROPHILS % (AUTO) 91.9 % (43.0-81.0); PLATELET COUNT (AUTO) 276 /CMM (150-450); RED BLOOD CELL COUNT(AUTO) 2.52 MIL/uL (4.5-6.0); WHITE BLOOD COUNT (AUTO) 21.8 K/uL (4.3-11.0)
[2019-11-01 04:20] LABS: CREATININE 4.2 mg/dL (0.6-1.3); POTASSIUM 3.4 mmol/L (3.5-5.1)
[2019-11-01] MEDS: clonazePAM 0.5 MG TABLET GT SCH ×3 (05:06→21:33)
--- NOTE | 2019-11-01 07:16 | NUR ---
RN NOTES PATIENT IN BED OBTUNDED TRACH IN PLACE. EMORY PICC LINE. RT FEMORAL HD CATH IN PLACE. PATENT INTACT NO S/S OF INFILTRATION NOTED. BUE WITH SOFT RESTRAINT RELEASED AND CHECKED FOR CIRCULATION AND PULSE [id number]. ON GOING SKIN TREATMENT SEE FLOW SHEET FOR SKIN ASSESSMENT. F/C INTACT YELLOW URINE RUNNING TO GRAVITY. BED BATH GIVEN TOLERATED WELL. WOUND CARE DONE. UNABLE TO TAKE WOUND PICTURE D/T PATIENT WAS HEMODYNAMICALLY UNSTABLE ENDORSE TO AM NURSE. ALL NEEDS ATTENDED, KEPT CLEAN DRY AND COMFORTABLE. ENDORSE TO AM NURSE FOR LEVI.
--- NOTE | 2019-11-01 07:40 | NUR ---
ICU/RN INITIAL NOTES,AM RECEIVED REPORT FROM NIGHT NURSE. PT TRACH TO VENT WITH SETTINGS ORDERED BY MD, NO ACUTE DISTRESS NOTED AT THIS TIME. AMIO DRIP D/C'D BY , PO ORDERED INSTEAD. SINUS ON TELE. VSS, PT NOW OFF LEVO AND PERLA. CURRENTLY OFF SEDATION. PT DOES NOT FOLLOW COMMANDS. ON BILATERAL SOFT WRIST RESTRAINTS, ASSESSED PER PROTOCOL. ALL NEEDS WILL BE ATTENDED TO, SAFETY MEASURES TAKEN, BED IN LOW POSITION, SIDE RAILS UP, CALL LIGHT WITHIN REACH. GENERALIZED JERKING MOTION NOTED, MD AWARE, WILL CONTINUE TO MONITOR.
[2019-11-01 08:10] LABS: ABG BASE EXCESS -7.7 mmol/L; ABG OXYGEN SATURATION 98.9 % (92.0-98.5); ABG PH 7.407 (7.350-7.450); ABG PO2 147.9 mmHg (75.0-100.0); AaDO2 107.4 mmHg; MetHb 0.2 % (0.0-1.5); O2Hb 98.7 % (94.0-97.0); SITE, ABG Right Radial; VENT MODE, BG AC 14 550 40% +5
[2019-11-01] MEDS: FERROUS SULFATE UDC 300 MG/5 ML UDC GT SCH (08:30)
[2019-11-01] MEDS: AMIODARONE HCL 200 MG TABLET PO SCH ×3 (08:30→18:03)
[2019-11-01] MEDS: LEVETIRACETAM SOL (5 ML) 100 MG/ML UDC GT SCH ×2 (08:30→21:32)
[2019-11-01] MEDS: LINEZOLID 600 MG TABLET PO SCH ×2 (08:30→21:33)
[2019-11-01] MEDS: GABAPENTIN 100 MG CAPSULE GT SCH (08:31)
[2019-11-01] MEDS: TRAMADOL HCL 50 MG TABLET GT SCH ×2 (08:31→18:03)
[2019-11-01] MEDS: LABETALOL HCL (100MG) 100 MG TABLET GT SCH ×2 (08:31→21:33)
[2019-11-01] MEDS: cycloSPORINE SOLUTION 500 MG/5 ML UDC GT SCH ×2 (08:31→18:04)
[2019-11-01] MEDS: ZINC SULFATE 220 MG CAPSULE GT SCH (08:31)
[2019-11-01] MEDS: DEXAMETHASONE SOD PHOSPHATE 10 MG/ML VIAL IV SCH (08:31)
[2019-11-01] MEDS: DAKINS QUARTER STRENGTH (0.125%) 480 ML BOTTLE TOP SCH (08:32)
[2019-11-01] MEDS: PROSOURCE / PROSTAT (PYXIS) 30 ML UDC GT SCH (08:32)
[2019-11-01] MEDS: LORAZEPAM INJ 2 MG/ML VIAL IV PRN ×2 (10:04→19:58)
--- NOTE | 2019-11-01 10:04 | NUR ---
ICU/RN: PRN ATIVAN GIVEN PER FOR POSSIBLE SEIZURES. PT CONTINUES TO HAVE CONTINUOUS GENERALIZED JERKING MOTION. WILL MONITOR POST ATIVAN.
[2019-11-01] MEDS: NEPRO 1,000 ML BOTTLE GT PRN (10:37)
--- NOTE | 2019-11-01 11:30 | NUR ---
ICU/RN: THREE LIQUID STOOLS NOTED, CHARTED AND INFORMED PRIMARY. ORDERS RECEIVED FOR C.DIFF, COLLECTED AND DELIVERED TO LAB.
--- NOTE | 2019-11-01 19:05 | NUR ---
SURVEYOR'S ASSISTANT. INITIAL ASSESSMENT. RECEIVED THE PT REST ON THE BED. TRACH TO VENT CONNECTED. PT IS DOES NOT FOLLOW COMMANDS. NOT RESPONDING PAIN . PORTEX #8,AC 14,TV 550,FIO2 40%,PEEP 5. SAT 99%. NO ACUTE DISTRESS NOTED. HYDRANT SETTER SHOWING NSR. IV RT UPPER ARM PICC LINE. NS 100ML/H. RT FEMORAL HD CATH. GT INTACT. NEPRO 30ML/H. GOAL IS 45ML/H. FC PATENT. WILL CONTINUE TO MONITOR VITALS.
--- NOTE | 2019-11-01 20:36 | NUR ---
TECHNICAL SUPERVISOR. AROUND 1950 [employer]B PUBLISHER SHOWING TORSADE. X2 LASTING >3 MINUTES. NOTIFIED PACKAGE LIFT OPERATOR EMI . ORDERED LAB MG AND BMP STAT. AMIO DRIP ORDERED.WILL CONTINUE TO MONITOR
[2019-11-01 20:43] LABS: CREATININE 3.6 mg/dL (0.6-1.3); MAGNESIUM 2.3 mg/dL (1.8-2.4); POTASSIUM 3.7 mmol/L (3.5-5.1)
[2019-11-01] MEDS: CEFEPIME 1 GM in IV D5W 50 ML IV SCH (21:11)
[2019-11-01] MEDS: AMIODARONE 450 MG in IV D5W 250 ML IV PRN (21:13)
[2019-11-01] MEDS: POTASSIUM CL. PREMIX PERIPHER. 50 ML IV SCH ×2 (21:55→22:46)
[2019-11-02] VITALS (44 sets, daily range): BP systolic 90–151; BP diastolic 40–96
[2019-11-02] MEDS: cycloSPORINE SOLUTION 500 MG/5 ML UDC GT SCH ×2 (00:30→17:36)
[2019-11-02] MEDS ORDERED: VANCOMYCIN 500 MG VIAL ONE (01:36)
[2019-11-02] MEDS: VANCOMYCIN HCL 125 MG/2.5 ML ORAL.SUSP PO SCH ×4 (01:41→17:36)
[2019-11-02 04:07] LABS: BASOPHILS % (AUTO) 0.1 % (0.0-2.0); EOSINOPHILS % (AUTO) 0.1 % (0.0-6.0); HEMATOCRIT 23 % (39-51); HEMOGLOBIN 7.2 g/dL (13.5-17.5); LYMPHOCYTES # (AUTO) 0.5 /CMM (0.8-4.8); LYMPHOCYTES % (AUTO) 2.5 % (20.0-44.0); MEAN CORPUSCULAR HGB CONC 32 g/dl (31.0-36.0); MEAN CORPUSCULAR VOLUME 93 fL (80-96); MONOCYTES # (AUTO) 0.8 /CMM (0.1-1.30); MONOCYTES % (AUTO) 4.3 % (2.0-12.0); NEUTROPHILS # (AUTO) 16.7 /CMM (1.8-8.9); PLATELET COUNT (AUTO) 265 /CMM (150-450); RED BLOOD CELL COUNT(AUTO) 2.43 MIL/uL (4.5-6.0)
[2019-11-02 04:17] LABS: CREATININE 3.6 mg/dL (0.6-1.3); POTASSIUM 3.8 mmol/L (3.5-5.1)
--- NOTE | 2019-11-02 04:35 | NUR ---
horticulture instructor. am care, oral care, bed bath given. linen changed. remaining same vents setting tolerated well. sat 99%. no acute distress noted. color television console monitor showing nsr,. iv rt upper arm picc line. ivf ns 100 m,l/h,amiodarone 0.5 mg/min, fc patent. urine draining. flexa seal intact. loose stool draining. afebrile, wound dressing done. gt feeding tolerated well. hob elevated. turn and reposition q2h,. will continue to monitor vitals.
[2019-11-02] MEDS: clonazePAM 0.5 MG TABLET GT SCH ×3 (05:26→21:06)
--- NOTE | 2019-11-02 06:15 | NUR ---
@0603 CODE BLUE CALLED. CPR STARTED. ZEYAD SARAVIA AT BEDSIDE. @0612 PT . Addendum: 11/02/19 at 0623 by ALVINO WILLOUGHBY RT NOTED ON WRONG PT.
[2019-11-02] MEDS: LORAZEPAM INJ 2 MG/ML VIAL IV PRN (07:06)
--- NOTE | 2019-11-02 07:53 | NUR ---
YARD WORKER INITIAL NOTE RECEIVED PT IN THE BED, AWAKE, OPEN EYES, RESPONSE TO TACTILE AND VERBAL STIMULI, PT WITH TRACH TO VENT SETTING AT ORDERED, AT BEDSIDE, RIGHT UPPER ARM PICC LINE IN PLACE AND FLUSHED WELL, AV SHUNT ON LEFT ARM IN PLACE AND CLOSED, RIGHT FEMORAL HD IN PLACE, ON IV FLUIDS AND AMIODARONE DRIP ORDERED, BELLAMY CATH TO GRAVITY WITH YELLOW URINE AND RECTAL TUBE IN PLACE, G-TUBE FEEDING WITH HOB ELEVATED, WITH NO RESIDUAL NOTED, PT ON SEIZURE PRECAUTION, WILL CONTINUE TO MONITOR, BED IN LOWEST POSITION AND LOCKED, CALL LIGHT WITHIN REACH AND FUNCTIONING, SAFETY MEASURE OBSERVED, ON CONTACT ISOLATION FOR MRSA BLOOD
--- NOTE | 2019-11-02 08:00 | NUR ---
UNDERWRITING SPECIALIST NOTE DR NOE SALES EXPERT AT BEDSIDE AWARE THAT EARLIER HAD EPISODES TORSADES X2 STATED OK TO CONT AMIODARONE DRIP 0.5 MG, CONT TILL FURTHER ORDERS, WILL F\U
--- NOTE | 2019-11-02 08:15 | NUR ---
EDUCATION FACULTY MEMBER NOTE PITER RN TRICK RODEO RIDER AT BEDSIDE, NOTIFIED THAT HG 7.2, NO ACTIVE BLEEDING NOTED ALSO AWARE OB STOOL POSITIVE , AWARE THAT HAD SEIZURE EARLIER AUXILIARY OPERATOR , AWARE THAT PATIENT ON KEPPRA PO . STATED THAT DR CAMARGO NEUROLOGIST WILL GIVE ADDITIONAL ORDERS
--- NOTE | 2019-11-02 08:30 | NUR ---
LEARNING SERVICES COORDINATOR NOTE DR MARTINEZ AT BEDSIDE, OK TO ORDER DIPRIVAN TILL NEUROLOGIST SEEN PATIENT, ORDER CARRIED OUT
[2019-11-02] MEDS: PROPOFOL 100 ML IV PRN (08:36)
[2019-11-02] MEDS: LEVETIRACETAM SOL (5 ML) 100 MG/ML UDC GT SCH (08:50)
[2019-11-02] MEDS: DEXAMETHASONE SOD PHOSPHATE 10 MG/ML VIAL IV SCH (08:50)
[2019-11-02] MEDS: LINEZOLID 600 MG TABLET PO SCH ×2 (08:51→21:06)
[2019-11-02] MEDS: FERROUS SULFATE UDC 300 MG/5 ML UDC GT SCH (08:51)
[2019-11-02] MEDS: ZINC SULFATE 220 MG CAPSULE GT SCH (08:51)
[2019-11-02] MEDS: TRAMADOL HCL 50 MG TABLET GT SCH ×2 (08:51→17:36)
[2019-11-02] MEDS: PROSOURCE / PROSTAT (PYXIS) 30 ML UDC GT SCH (08:52)
[2019-11-02] MEDS: DAKINS QUARTER STRENGTH (0.125%) 480 ML BOTTLE TOP SCH (09:00)
--- NOTE | 2019-11-02 09:00 | NUR ---
MEDICAL COST CONSULTANT NOTE UNABLE TO DO TX AT THIS TIME, PATENT NOR HEMODYNAMICALLY STABLE AT THIS TIME DACKING DIVYA STILL NOT AVAILABLE, PHARMACY NOTIFIED
[2019-11-02] MEDS ORDERED: LEVETIRACETAM (500MG) 1,000 MG in IV NS 0.9% 100 ML IV STA (09:10)
--- NOTE | 2019-11-02 09:30 | NUR ---
PORTER MARINA NOTE DR CAMARGO NEUROLOGIST CALLED WITH ORDER KEPPRA 1000 MG IV NOW AND 1500 MG Q12 HOUR ORDER CARRIED OUT
--- NOTE | 2019-11-02 09:48 | NUR ---
ASSOCIATE DOCTOR NOTE DR CAMARGO CALL AGAIN WITH ORDER VERSED CHUY Addendum: 11/02/19 at 0949 by ADAM ABURTO RN PER DR MICHELLE KEATING TO STOP MAXI VERA ONCE VERSED CHUY STARTED
[2019-11-02] MEDS: AMIODARONE 450 MG in IV D5W 250 ML IV PRN ×2 (09:51→22:35)
--- NOTE | 2019-11-02 09:52 | NUR ---
REAL ESTATE SUBAGENT NOTE HD STARTED ORDERED
--- NOTE | 2019-11-02 09:52 | NUR ---
PRODUCTION PLANNER SCHEDULER NOTE PER DR GONZALEZ YOUTH WORKER OK TO STOP IVF AND WILL HAVE HD
[2019-11-02] MEDS: MIDAZOLAM HCL 100 MG in IV NS 0.9% 80 ML IV PRN ×2 (10:26→22:19)
--- NOTE | 2019-11-02 10:42 | NUR ---
HEAD CONCIERGE NOTE VERSED DRIP STARTED ORDERED AT INITIAL DOSE 0.5 MG\HOUR
--- NOTE | 2019-11-02 10:56 | NUR ---
POST PARTUM NURSE NOTE HD COMPLETED ,NO FLUIDS OUT BP 125/85 HR 85 SAT 100%
--- NOTE | 2019-11-02 11:30 | NUR ---
BRASS POLISHER NOTE PER DR MARTINEZ OK TO STOP DIPRIVAN DRIP WHILE ON VERSED DRIP ,ORDER CARRIED OUT
--- NOTE | 2019-11-02 13:34 | NUR ---
NURSE INFORMATICS EDUCATOR NOTE NOTED JERKING MOVEMENT UPPER AND LOWER EXTREMITIES, VERSED DRIP TITRATE UP TO 2 MG\HOUR , WILL MONITOR
[2019-11-02] MEDS: NEPRO 1,000 ML BOTTLE GT PRN (15:13)
--- NOTE | 2019-11-02 15:26 | NUR ---
CUSTOMER TECHNICAL SERVICES MANAGER NOTE ON VERSED DRIP PER PROTOCOL NOW AT 2.0 MG \HOUR ,WILL MONITOR FOR FOR SEIZURE EPISODES
--- NOTE | 2019-11-02 15:52 | NUR ---
GAS MAIN AND LINE FITTER NOTE NOTED JERKING MOVEMENT UPPER AND LOWER EXTREMITIES TITRATE VERSED DRIP UP 2.5 MG WILL F\U AND MONITOR
--- NOTE | 2019-11-02 16:20 | NUR ---
agricultural crop farm manager note report given to kim almazan
--- NOTE | 2019-11-02 18:15 | NUR ---
DISPENSING AND MEASURING OPTICIAN Closing Note Patient remains attached to vent via trach. FiO2 40%, PEEP 5, SPO2 100%, no SOB or distress noted. Opens eyes, nonverbal, obtunded, unable to follow command. Attached to tele SR w/ BBB HR 80s this shift. Mccloud draining cloudy urine, flexiseal in place marked @100. HD today, 0 mL out. Turned per protocol. PEG in place, verified via auscultation+aspiration, nepro@45mL/hr, 5mL residual. R fem cath, intact, no bleeding noted, L AV fistula (not working; relevant sign on door), EMORY PICC infusing amio@0.5mg/min & versed @3mg/hr. Seizure precautions in place, HOB elevated. Temp 99F, ID DIGITAL STRATEGY MANAGER aware
[2019-11-02] MEDS: CEFEPIME 1 GM in IV D5W 50 ML IV SCH (20:27)
[2019-11-02] MEDS: LEVETIRACETAM (500MG) 1,500 MG in IV NS 0.9% 100 ML IV SCH (21:07)
[2019-11-03] VITALS (39 sets, daily range): BP systolic 91–165; BP diastolic 40–103
[2019-11-03] MEDS: VANCOMYCIN HCL 125 MG/2.5 ML ORAL.SUSP PO SCH ×5 (00:44→23:29)
[2019-11-03 04:21] LABS: BASOPHILS % (AUTO) 0.1 % (0.0-2.0); EOSINOPHILS % (AUTO) 0.2 % (0.0-6.0); HEMATOCRIT 22 % (39-51); HEMOGLOBIN 7.1 g/dL (13.5-17.5); LYMPHOCYTES # (AUTO) 0.7 /CMM (0.8-4.8); LYMPHOCYTES % (AUTO) 4.7 % (20.0-44.0); MEAN CORPUSCULAR HGB CONC 32 g/dl (31.0-36.0); MEAN CORPUSCULAR VOLUME 92 fL (80-96); MONOCYTES % (AUTO) 6.1 % (2.0-12.0); NEUTROPHILS # (AUTO) 13.8 /CMM (1.8-8.9); NEUTROPHILS % (AUTO) 88.9 % (43.0-81.0); PLATELET COUNT (AUTO) 235 /CMM (150-450); RED BLOOD CELL COUNT(AUTO) 2.41 MIL/uL (4.5-6.0); WHITE BLOOD COUNT (AUTO) 15.5 K/uL (4.3-11.0)
[2019-11-03 04:24] LABS: CALCIUM, SERUM 6.9 mg/dL (8.5-10.1); CREATININE 3.4 mg/dL (0.6-1.3); POTASSIUM 3.3 mmol/L (3.5-5.1)
[2019-11-03] MEDS: clonazePAM 0.5 MG TABLET GT SCH ×3 (05:35→20:54)
[2019-11-03] MEDS: AMIODARONE 450 MG in IV D5W 250 ML IV PRN (06:02)
--- NOTE | 2019-11-03 06:38 | NUR ---
Patient remains in no acute distress in bed. patient did not have any significant change in condition during shift. Patient tolerated vent setting well. all needs met, all orders carried out. will endorse care to am rn for continuity of care.
[2019-11-03] MEDS ORDERED: POTASSIUM CHLORIDE 20 MEQ POWDER PACKET GT ONE ×2 (07:30→12:00)
[2019-11-03] MEDS ORDERED: AMIODARONE HCL 200 MG TABLET PO SCH (09:00)
[2019-11-03] MEDS: LINEZOLID 600 MG TABLET PO SCH ×2 (09:04→20:54)
[2019-11-03] MEDS: TRAMADOL HCL 50 MG TABLET GT SCH ×2 (09:04→17:53)
[2019-11-03] MEDS: LEVETIRACETAM (500MG) 1,500 MG in IV NS 0.9% 100 ML IV SCH (09:05)
[2019-11-03] MEDS: FERROUS SULFATE UDC 300 MG/5 ML UDC GT SCH (09:05)
[2019-11-03] MEDS: GABAPENTIN 100 MG CAPSULE GT SCH (09:05)
[2019-11-03] MEDS: cycloSPORINE SOLUTION 500 MG/5 ML UDC GT SCH ×2 (09:05→17:53)
[2019-11-03] MEDS: ZINC SULFATE 220 MG CAPSULE GT SCH (09:05)
[2019-11-03] MEDS: DEXAMETHASONE SOD PHOSPHATE 10 MG/ML VIAL IV SCH (09:06)
[2019-11-03] MEDS: PROSOURCE / PROSTAT (PYXIS) 30 ML UDC GT SCH (09:07)
[2019-11-03] MEDS: DAKINS QUARTER STRENGTH (0.125%) 480 ML BOTTLE TOP SCH (09:08)
[2019-11-03] MEDS: MIDAZOLAM HCL 100 MG in IV NS 0.9% 80 ML IV PRN (09:52)
--- NOTE | 2019-11-03 12:19 | NUR ---
PER [facility] PT IS C-DIFF POSITIVE. [address] MAGISTRATE AND [address] MAGISTRATE NOTIFIED.
--- NOTE | 2019-11-03 13:15 | NUR ---
SEIZURES OBSERVED BY RN. VERSED GTT INCREASED BACK UP TO 3MG/HR. DR. NEWELL NOTIFIED, NO ORDERS GIVEN AT THIS TIME
[2019-11-03] MEDS: NEPRO 1,000 ML BOTTLE GT PRN (17:21)
[2019-11-03] MEDS: AMIODARONE HCL 200 MG TABLET PO SCH (17:53)
[2019-11-03] MEDS ORDERED: phenytoin SODIUM IV 1,000 MG in IV NS 0.9% 100 ML IV ONE (18:00)
--- NOTE | 2019-11-03 19:48 | NUR ---
END OF SHIFT NOTE: DR. CAMARGO ORDERED DILANTIN FOR SEIZURES, LOADING DOSE GIVEN. VERSED INFUSING PER MD ORDERS AT 3MG/HR. PT'S C-DIFF RESULTS CAME BACK POSITIVE, MD'S AWARE. NO DIALYSIS TODAY. PT CHECKED ON HOURLY AND PRN BY NURSING STAFF.
--- NOTE | 2019-11-03 19:50 | NUR ---
RN NOTE RECEIVED PATIENT IN BED, ON SEMI BLACKWELL'S POSITION. OBTUNDED, NO S/SX OF ACUTE DISTRESS AT THIS TIME. PATIENT'S BREATHING IS EVEN AND UNLABORED. PATIENT ON TRACHE CONNECTED TO MECH VENT WITH PRESCRIBED SETTINGS, SATURATING AT 100%. PATIENT ON RESIDENTIAL GAS HEAT TECHNICIAN READING SR WITH BBB, HR IS 82. NOTED TLC PICC LINE AT EMORY, AND RIGHT FEMORAL HD CATH; PATENT AND FLUSHING WELL, NO S/S OF INFECTION OR INFILTRATION. VERSED ONGOING AT 3 MG/HR, AND NS AT TKO. GTUBE IN PLACE, PLACEMENT VERIFIED, WITH NEPRO FEEDING AT 45 ML/HR. BELLAMY CATH IN PLACE, MINIMAL OUTPUT NOTED. RECTAL TUBE INTACT, NO OUTPUT NOTED. SAFETY MEASURES IMPLEMENTED PER PROTOCOL. PATIENT BED ALARM IS ON. HEAD OF BED ELEVATED. BED IS LOCKED, IN LOWEST POSITION AND SIDE RAILS UP. CALL LIGHT WITHIN REACH OF THE PATIENT. WILL CONTINUE TO MONITOR AND REASSESS FOR ANY CHANGES.
--- NOTE | 2019-11-03 20:25 | NUR ---
RT NOTE PT RECEIVED TRACHED WITH PORTEX [address] SX DONE, TRACH SECURED AND PATENT. KARSTEN BAG @ HOB. PT ASLEEP, NO DISTRESS NOTED AT THIS TIME. VENT PLUGGED TO RED OUTLET. ALARMS ON AND AUDIBLE. WILL CONTINUE TO MONITOR T/O SHIFT. Addendum: 11/03/19 at 2025 by ZEHRA RAJAN RT Amended: Links added.
[2019-11-03] MEDS: CEFEPIME 1 GM in IV D5W 50 ML IV SCH (20:50)
[2019-11-03] MEDS: LEVETIRACETAM SOL (5 ML) 100 MG/ML UDC GT SCH (20:54)
--- NOTE | 2019-11-03 21:00 | NUR ---
RN NOTE TELEPHONE CALL RECEIVED FROM ARASH, PATIENT'S BROTHER, INQUIRING ON CURRENT PATIENT STATUS. OBJECTIVE INFORMATION PROVIDED PER CHART. ARASH ACKNOWLEDGED AND VERBALIZED UNDERSTANDING.
[2019-11-04] VITALS (41 sets, daily range): BP systolic 100–148; BP diastolic 75–100
[2019-11-04] MEDS: AMIODARONE HCL 200 MG TABLET PO SCH ×3 (00:29→17:45)
[2019-11-04 04:26] LABS: BASOPHILS % (AUTO) 0.1 % (0.0-2.0); EOSINOPHILS % (AUTO) 0.2 % (0.0-6.0); HEMATOCRIT 26 % (39-51); HEMOGLOBIN 8.1 g/dL (13.5-17.5); LYMPHOCYTES # (AUTO) 0.6 /CMM (0.8-4.8); LYMPHOCYTES % (AUTO) 5.2 % (20.0-44.0); MEAN CORPUSCULAR HGB CONC 31 g/dl (31.0-36.0); MEAN CORPUSCULAR VOLUME 96 fL (80-96); MONOCYTES # (AUTO) 0.9 /CMM (0.1-1.30); MONOCYTES % (AUTO) 7.9 % (2.0-12.0); NEUTROPHILS # (AUTO) 10.3 /CMM (1.8-8.9); NEUTROPHILS % (AUTO) 86.6 % (43.0-81.0); PLATELET COUNT (AUTO) 250 /CMM (150-450); RED BLOOD CELL COUNT(AUTO) 2.73 MIL/uL (4.5-6.0); WHITE BLOOD COUNT (AUTO) 11.9 K/uL (4.3-11.0)
[2019-11-04 04:43] LABS: CALCIUM, SERUM 7.1 mg/dL (8.5-10.1); CREATININE 4.1 mg/dL (0.6-1.3); POTASSIUM 4.6 mmol/L (3.5-5.1)
[2019-11-04] MEDS: clonazePAM 0.5 MG TABLET GT SCH ×3 (05:24→21:28)
[2019-11-04] MEDS: VANCOMYCIN HCL 125 MG/2.5 ML ORAL.SUSP PO SCH ×3 (05:24→17:44)
[2019-11-04] MEDS: PHENYTOIN SODIUM IV 100 MG/2ML VIAL IV SCH ×2 (05:30→19:41)
--- NOTE | 2019-11-04 07:09 | NUR ---
RN NOTE PATIENT RESTING IN BED COMFORTABLY, OBTUNDED. TOLERATING VENT SETTINGS WELL. NO SIGNS OF ACUTE DISTRESS. BREATHING EVEN AND UNLABORED. STAPLE FIBER WASHER READING SR WITH BBB, HR 80-90'S. NOTED EPISODES OF SEIZURE, SEIZURE PRECAUTIONS IN PLACE. ALL NEEDS ATTENDED TO. WILL ENDORSE TO AM SHIFT RN FOR CONTINUATION OF CARE.
[2019-11-04] MEDS: DEXAMETHASONE SOD PHOSPHATE 10 MG/ML VIAL IV SCH (09:11)
[2019-11-04] MEDS: LINEZOLID 600 MG TABLET PO SCH ×2 (09:11→21:28)
[2019-11-04] MEDS: cycloSPORINE SOLUTION 500 MG/5 ML UDC GT SCH ×2 (09:11→17:45)
[2019-11-04] MEDS: FERROUS SULFATE UDC 300 MG/5 ML UDC GT SCH (09:11)
[2019-11-04] MEDS: LEVETIRACETAM SOL (5 ML) 100 MG/ML UDC GT SCH ×2 (09:12→21:28)
[2019-11-04] MEDS: TRAMADOL HCL 50 MG TABLET GT SCH ×2 (09:13→17:45)
[2019-11-04] MEDS: DAKINS QUARTER STRENGTH (0.125%) 480 ML BOTTLE TOP SCH (09:13)
[2019-11-04] MEDS: ZINC SULFATE 220 MG CAPSULE GT SCH (09:13)
[2019-11-04] MEDS: PROSOURCE / PROSTAT (PYXIS) 30 ML UDC GT SCH (09:15)
[2019-11-04] MEDS: MIDAZOLAM HCL 100 MG in IV NS 0.9% 80 ML IV PRN (09:17)
--- NOTE | 2019-11-04 12:24 | NUR ---
DIALYSIS IS ABOUT TO START, 1200 AND 1300 MEDS HELD UNTIL AFTER DIALYSIS
--- NOTE | 2019-11-04 13:00 | NUR ---
PER TUTORING MANAGER PT WAS UNABLE TO GET DIALYSIS DUE TO LINE FAILURE. TUTORING MANAGER NOTIFIED DR. MARTIN.
[2019-11-04] MEDS: NEPRO 1,000 ML BOTTLE GT PRN (17:44)
--- NOTE | 2019-11-04 19:00 | NUR ---
Received patient with tracheostomy to the ventilator on AC mode,not in any distress,asleep/drowsy but easily awakens/responds to pain,+ cough, moves both arms,very weak lower extremities.On Versed drip for seizure control,( on Keppra,Dilantin), Feeding via G tube ,Aspiration Precaution observed.Comfort care done,needs attended.
--- NOTE | 2019-11-04 19:00 | NUR ---
Received patient orally intubated to the ventilator on AC mode,slightly labored breathing ,with deep inspiratory effort and tachypneic RR=30-33.With sedation on propofol drip, Fentanyl drip.+ cough/gag, grimaces top pain,no movement noted of any extremity, right foot mottled/purplish and cold to touch (MDs aware as per AM nurse). On Levophed drip for BP [id number] SBP 90 and above. With ongoing tube feeding via OGT,Aspiration Precaution observed,will closely monitor residuals. Comfort care done, cooling measures done, on Hypothermic blanket due to fever. Addendum: 11/04/19 at 2243 by DAVID KENDRICK RN Disregard above note,charted on wrong patient.
--- NOTE | 2019-11-04 19:30 | NUR ---
END OF SHIFT NOTE: PT HAD A FAIRLY UNEVENTFUL DAY. DIALYSIS WAS ATTEMPTED, JEANNIE WAS NOT WORKING PROPERLY PER VIRTUAL OFFICE ASSISTANT, SEE PREVIOUS NOTE. VERSED GTT IS CURRENTLY INFUSING AT 1MG/HR. NO SEIZURES NOTED TODAY. PT CHECKED ON HOURLY AND PRN BY NURSING STAFF.
[2019-11-04] MEDS: CEFEPIME 1 GM in IV D5W 50 ML IV SCH (20:10)
--- NOTE | 2019-11-04 22:00 | NUR ---
Remains stable,awake,alert,tries to talk,not following commands,no seizure activity.
[2019-11-05] VITALS (45 sets, daily range): BP systolic 112–163; BP diastolic 69–121
--- NOTE | 2019-11-05 | NUR ---
REmains stable,drowsy/asleep most of the time but easily arousable ,not in any distress,no seizure activity.
[2019-11-05] MEDS: VANCOMYCIN HCL 125 MG/2.5 ML ORAL.SUSP PO SCH ×4 (00:14→17:41)
[2019-11-05] MEDS: AMIODARONE HCL 200 MG TABLET PO SCH ×3 (00:51→17:42)
--- NOTE | 2019-11-05 02:00 | NUR ---
Stable,asleep,awakens easily.Not in any distress.
--- NOTE | 2019-11-05 04:00 | NUR ---
AM care ,noted some twitching of the face,will keep Versed drip @ 1 mg/hr for now.Tolerated AM care with turning and moving not in any distress.
[2019-11-05 04:09] LABS: BASOPHILS % (AUTO) 0.1 % (0.0-2.0); CALCIUM, SERUM 7.8 mg/dL (8.5-10.1); CREATININE 4.3 mg/dL (0.6-1.3); EOSINOPHILS % (AUTO) 0.2 % (0.0-6.0); HEMATOCRIT 23 % (39-51); HEMOGLOBIN 7.2 g/dL (13.5-17.5); LYMPHOCYTES # (AUTO) 0.7 /CMM (0.8-4.8); LYMPHOCYTES % (AUTO) 6.2 % (20.0-44.0); MEAN CORPUSCULAR HGB CONC 31 g/dl (31.0-36.0); MEAN CORPUSCULAR VOLUME 95 fL (80-96); MONOCYTES % (AUTO) 8.9 % (2.0-12.0); NEUTROPHILS # (AUTO) 9.4 /CMM (1.8-8.9); NEUTROPHILS % (AUTO) 84.6 % (43.0-81.0); PLATELET COUNT (AUTO) 196 /CMM (150-450); POTASSIUM 3.9 mmol/L (3.5-5.1); RED BLOOD CELL COUNT(AUTO) 2.46 MIL/uL (4.5-6.0); WHITE BLOOD COUNT (AUTO) 11.2 K/uL (4.3-11.0)
--- NOTE | 2019-11-05 05:00 | NUR ---
NOted bP elevated 136/100 ,patient very awake,a little agitated but not in any respioratory distress,restless trying to talk.
--- NOTE | 2019-11-05 06:00 | NUR ---
NOted BP still high ,and tachypneic RR=30's with labored breathing but not desaturating.Saturating 96-99%,suctioned .RT at bedside.
[2019-11-05] MEDS: PHENYTOIN SODIUM IV 100 MG/2ML VIAL IV SCH (06:15)
[2019-11-05] MEDS: clonazePAM 0.5 MG TABLET GT SCH ×3 (06:15→21:01)
--- NOTE | 2019-11-05 07:00 | NUR ---
Report given to Marichuy SALDANA.Patient still with labored breathing,but saturating 100 %,will do stat ABG.
[2019-11-05] MEDS: hydrALAZINE HCL IV 20 MG VIAL IV PRN (07:05)
[2019-11-05 07:31] LABS: ABG BASE EXCESS -12.8 mmol/L; ABG OXYGEN SATURATION 96.6 % (92.0-98.5); ABG PCO2 25.2 mmHg (35.0-45.0); ABG PH 7.302 (7.350-7.450); AaDO2 159.2 mmHg; COHb 0.3 % (0.5-1.5); MetHb 0.2 % (0.0-1.5); O2Hb 96.1 % (94.0-97.0); SITE, ABG Right Femoral; VENT MODE, BG AC 14 550 405 +5
[2019-11-05] MEDS ORDERED: LORAZEPAM INJ 2 MG/ML VIAL IV STA (08:02)
--- NOTE | 2019-11-05 10:01 | NUR ---
AT 0700 DURING REPORT FROM PREVIOUS SHIFT PT WAS OBSERVED LABORED KUSSMAULS TYPE BREATHING, PT NOT RESPONSIVE, BP SLIGHTLY ELEVATED, SBP 160'S. STAT ABG DONE. DR. MARTINEZ ARRIVED SHORTLY AFTER 0730, HE WAS NOTIFIED. STAT ORDERS FOR VENT CHANGES, STAT ATIVAN DOSE AND INCREASING VERSED GTT RECEIVED. FOLLOW UP ABG BEING DONE AT THIS TIME
[2019-11-05 10:04] LABS: ABG BASE EXCESS -11.2 mmol/L; ABG PCO2 25.6 mmHg (35.0-45.0); ABG PO2 99.5 mmHg (75.0-100.0); AaDO2 156.3 mmHg; SITE, ABG Right Radial; VENT MODE, BG AC 22 600 40% +5
[2019-11-05] MEDS: MIDAZOLAM HCL 100 MG in IV NS 0.9% 80 ML IV PRN (10:22)
--- NOTE | 2019-11-05 12:09 | NUR ---
AM MEDS GIVEN LATE TODAY DUE TO PATIENT BEING UNSTABLE. TUBE FEEDING TURNED OFF AT 0800. AT THIS TIME PT APPEARS STABLE WITH VENT CHANGES MADE THIS AM AND VERSED TURNED UP TO 3MG.HR PER MD ORDER. NO KUSSMAULS LIKE BREATHING NOTED AT THIS TIME, NO SEIZURES VISIBLE AT THIS TIME. BLOOD PRESSURE STABLE AT 121/81. WILL CONTINUE TO MONITOR. PER DR. MARTIN DIALYSIS CATHETER IS TO BE EXCHANGED TODAY, UNKNOWN AT WHAT TIME.
[2019-11-05] MEDS: LINEZOLID 600 MG TABLET PO SCH ×2 (12:32→21:01)
[2019-11-05] MEDS: TRAMADOL HCL 50 MG TABLET GT SCH ×2 (12:32→17:42)
[2019-11-05] MEDS: GABAPENTIN 100 MG CAPSULE GT SCH (12:32)
[2019-11-05] MEDS: FERROUS SULFATE UDC 300 MG/5 ML UDC GT SCH (12:33)
[2019-11-05] MEDS: ZINC SULFATE 220 MG CAPSULE GT SCH (12:33)
[2019-11-05] MEDS: LEVETIRACETAM SOL (5 ML) 100 MG/ML UDC GT SCH ×2 (12:33→21:01)
[2019-11-05] MEDS: DAKINS QUARTER STRENGTH (0.125%) 480 ML BOTTLE TOP SCH (12:34)
[2019-11-05] MEDS: DEXAMETHASONE SOD PHOSPHATE 10 MG/ML VIAL IV SCH (12:34)
[2019-11-05] MEDS: PROSOURCE / PROSTAT (PYXIS) 30 ML UDC GT SCH (12:34)
[2019-11-05] MEDS ORDERED: PHENYTOIN SODIUM IV 100 MG/2ML VIAL IV SCH (16:00)
[2019-11-05] MEDS: phenytoin SODIUM IV 300 MG in IV NS 0.9% 50 ML IV SCH (17:15)
[2019-11-05] MEDS: cycloSPORINE SOLUTION 500 MG/5 ML UDC GT SCH (17:41)
--- NOTE | 2019-11-05 19:32 | NUR ---
END OF SHIFT NOTE: PER PREVIOUS NOTE PT HAD LOC CHANGES THIS AM, PER DR. CAMARGO PT WAS POSSIBLY HAVING NON VISUAL SEIZURES THIS AM. AT NOON PT'S NEURO AND RESP STATUS RETURNED TO BASELINE. DR. CAMARGO MADE MED CHANGES. PT CHECKED ON HOURLY AND PRN BY NURSING STAFF.
[2019-11-05] MEDS: CEFEPIME 1 GM in IV D5W 50 ML IV SCH (20:07)
--- NOTE | 2019-11-05 22:10 | NUR ---
ICU/SHRIMPER PT WAS PROVIDED ORAL CARE AT THIS TIME, ALONG WITH PN CARE. PT TOLERATED THIS WELL, REMAINS ON CURRENT VENT SETTINGS WITH SATURATION AT 100%. PT WAS TURNED AND REPOSITIONED FOR COMFORT AND CARE. WILL CONTINUE TO MONITOR THIS PT
--- NOTE | 2019-11-05 23:41 | NUR ---
RT NOTE Pt rec'd trach via portex 7 on [facility] vent on AC mode settings as charted. Pt shows no signs of resp distress and sob. Trach is patent and secured. Pt sx'd for mod amt of thick pale yellow secretions. Alarms are set and audible. Ambu bag is bedside. Vent plugged into red outlet. Will continue to monitor. Addendum: 11/05/19 at 2342 by BENOIT MUNROE RT Amended: Links added.
[2019-11-06] VITALS (38 sets, daily range): BP systolic 108–140; BP diastolic 75–96
[2019-11-06] MEDS: VANCOMYCIN HCL 125 MG/2.5 ML ORAL.SUSP PO SCH ×5 (00:05→23:45)
--- NOTE | 2019-11-06 00:10 | NUR ---
ICU/BUMBOATER PT WAS TURNED AND REPOSITIONED FOR COMFORT AND CARE. WILL CONTINUE TO MONITOR THIS PT, NO ACUTE DISTRESS SEEN AT THIS TIME.
[2019-11-06] MEDS: phenytoin SODIUM IV 300 MG in IV NS 0.9% 50 ML IV SCH ×3 (00:22→16:38)
[2019-11-06] MEDS: AMIODARONE HCL 200 MG TABLET PO SCH ×4 (02:08→23:47)
[2019-11-06] MEDS: MIDAZOLAM HCL 100 MG in IV NS 0.9% 80 ML IV PRN ×3 (02:30→20:39)
--- NOTE | 2019-11-06 02:45 | NUR ---
ICU/LIVESTOCK EXHIBITOR PT WAS PROVIDED ORAL CARE AT THIS TIME, ALONG WITH AM CARE. PT TOLERATED THIS WELL, REMAINS ON CURRENT VENT SETTINGS WITH SATURATION AT 100%. PT WAS TURNED AND REPOSITIONED FOR COMFORT AND CARE. WILL CONTINUE TO MONITOR THIS PT
[2019-11-06 04:43] LABS: BASOPHILS % (AUTO) 0.2 % (0.0-2.0); EOSINOPHILS % (AUTO) 0.2 % (0.0-6.0); HEMATOCRIT 23 % (39-51); HEMOGLOBIN 7.2 g/dL (13.5-17.5); LYMPHOCYTES # (AUTO) 0.7 /CMM (0.8-4.8); LYMPHOCYTES % (AUTO) 5.6 % (20.0-44.0); MEAN CORPUSCULAR HGB CONC 31 g/dl (31.0-36.0); MEAN CORPUSCULAR VOLUME 94 fL (80-96); MONOCYTES # (AUTO) 0.5 /CMM (0.1-1.30); MONOCYTES % (AUTO) 4.5 % (2.0-12.0); NEUTROPHILS # (AUTO) 10.6 /CMM (1.8-8.9); NEUTROPHILS % (AUTO) 89.5 % (43.0-81.0); PLATELET COUNT (AUTO) 184 /CMM (150-450); RED BLOOD CELL COUNT(AUTO) 2.48 MIL/uL (4.5-6.0); WHITE BLOOD COUNT (AUTO) 11.9 K/uL (4.3-11.0)
[2019-11-06 05:15] LABS: CALCIUM, SERUM 7.4 mg/dL (8.5-10.1); MAGNESIUM 2.2 mg/dL (1.8-2.4); PHOSPHORUS 5.3 mg/dL (2.5-4.9); POTASSIUM 3.9 mmol/L (3.5-5.1)
[2019-11-06] MEDS: clonazePAM 0.5 MG TABLET GT SCH ×3 (05:26→21:07)
[2019-11-06] MEDS: ZINC SULFATE 220 MG CAPSULE GT SCH (08:20)
[2019-11-06] MEDS: TRAMADOL HCL 50 MG TABLET GT SCH ×2 (08:20→16:38)
[2019-11-06] MEDS: DAKINS QUARTER STRENGTH (0.125%) 480 ML BOTTLE TOP SCH (08:21)
[2019-11-06] MEDS: cycloSPORINE SOLUTION 500 MG/5 ML UDC GT SCH ×2 (08:21→16:37)
[2019-11-06] MEDS: FERROUS SULFATE UDC 300 MG/5 ML UDC GT SCH (08:21)
[2019-11-06] MEDS: LINEZOLID 600 MG TABLET PO SCH ×2 (08:21→21:07)
[2019-11-06] MEDS: LEVETIRACETAM SOL (5 ML) 100 MG/ML UDC GT SCH ×2 (08:21→21:02)
[2019-11-06] MEDS: DEXAMETHASONE SOD PHOSPHATE 10 MG/ML VIAL IV SCH (08:21)
[2019-11-06] MEDS: PROSOURCE / PROSTAT (PYXIS) 30 ML UDC GT SCH (10:05)
[2019-11-06] MEDS: NEPRO 1,000 ML BOTTLE GT PRN (16:40)
--- NOTE | 2019-11-06 17:44 | NUR ---
RN NOTE 0715: Received patient with trache to vent, tolerated settings, no respiratory distress noted at this time. On Versed @ 3mcg, to keep on 3mcg per previous shift, ordered by MD due to resp distress. NSR on the monitor at 80's. With GT intact, TF tolerated. Kept HOB elevated. Mccloud cath intact, noted with clear giovanna colored urine drained to BSD. With Rectal tube intact, noted with loose brown stool. On isolation prec for CDiff and MRSA in blood, maintained and observed. 0740: Assessed patient's neuro status, noted able to follow some simple commands like opening eyes or sticking out tongue, though does not track voice. Dr. Mccormack called and made aware. 0930: S/E by dr. Penny, no new order at this time. 1030: S/E by Jung HOUGH, no new order at this time. 1300: Dr. Thurman placed new HD cath on left femoral. 1330: HD nurse at bedside for HD. 1400: HD nurse removed right femoral cath per Dr. Thurman, applied pressure, no bleeding noted. Sent cath tip to lab. 1500: Done with HD, tolerated, no dysrhythmia noted. 1L out reported by HD nurse. 1700: No any significant changes noted at this time. No episode of seizure noted. Kept cleana, warm and dry. Needs attended.
[2019-11-06] MEDS: CEFEPIME 1 GM in IV D5W 50 ML IV SCH (19:42)
--- NOTE | 2019-11-06 19:45 | NUR ---
ICU/ENVIRONMENTAL HEALTH MANAGER REPORT RECEIVED FROM THE TO DAY NURSE. SEE FLOWSHEET FOR ASSESSMENT, SKIN ISSUES ARE ADDRESSED ON FLOWSHEET ALONG WITH INTERVENTION TO EACH. PT APPEARS LETHARGIC WITH VERSED FOR SEIZURES. PT TRACH TOLERATING CURRENT SETTINGS WITH SATURATION AT 100'S%. WILL MONITOR THIS PT AND HIS SATURATION. PT WAS TURNED AND REPOSITIONED FOR COMFORT AND CARE. NO ACUTE DISTRESS SEEN AT THIS TIME. PT APPEARS TO BE TOLERATING G/TUBE FEEDING WITH NO RESIDUALS SEEN.
--- NOTE | 2019-11-06 22:00 | NUR ---
ICU/ASSEMBLER BICYCLE PT WAS PROVIDED ORAL CARE AT THIS TIME, ALONG WITH PN CARE. PT TOLERATED THIS WELL, REMAINS ON CURRENT VENT SETTINGS WITH SATURATION AT 100%. PT WAS TURNED AND REPOSITIONED FOR COMFORT AND CARE. WILL CONTINUE TO MONITOR THIS PT
[2019-11-06] MEDS: LORAZEPAM INJ 2 MG/ML VIAL IV PRN (23:23)
[2019-11-07] VITALS (25 sets, daily range): BP systolic 102–135; BP diastolic 69–98
--- NOTE | 2019-11-07 | NUR ---
ICU/BARROW WORKER HELPER ATIVAN WAS GIVEN LOOKED LIKE PT WAS HAVING SOME SEIZURE LIKE ACTIVITY. WILL MONITOR THIS PT AND HIS SEIZURE LIKE BEHAVIOR.
--- NOTE | 2019-11-07 00:10 | NUR ---
ICU/HEALTH CONSULTANT PT WAS TURNED AND REPOSITIONED FOR COMFORT AND CARE. WILL CONTINUE TO MONITOR THIS PT, NO ACUTE DISTRESS SEEN AT THIS TIME.
[2019-11-07] MEDS: phenytoin SODIUM IV 300 MG in IV NS 0.9% 50 ML IV SCH ×3 (00:26→17:03)
--- NOTE | 2019-11-07 02:30 | NUR ---
ICU/SHODER FILLER PT WAS PROVIDED ORAL CARE AT THIS TIME, ALONG WITH AM CARE. PT TOLERATED THIS WELL, REMAINS ON CURRENT VENT SETTINGS WITH SATURATION AT 100%. PT WAS TURNED AND REPOSITIONED FOR COMFORT AND CARE. WILL CONTINUE TO MONITOR THIS PT
[2019-11-07] MEDS: clonazePAM 0.5 MG TABLET GT SCH ×3 (04:04→20:08)
[2019-11-07 05:04] LABS: BASOPHILS % (AUTO) 0.3 % (0.0-2.0); EOSINOPHILS % (AUTO) 0.1 % (0.0-6.0); HEMATOCRIT 23 % (39-51); HEMOGLOBIN 7.3 g/dL (13.5-17.5); LYMPHOCYTES # (AUTO) 0.8 /CMM (0.8-4.8); LYMPHOCYTES % (AUTO) 7.2 % (20.0-44.0); MEAN CORPUSCULAR HGB CONC 32 g/dl (31.0-36.0); MEAN CORPUSCULAR VOLUME 93 fL (80-96); MONOCYTES # (AUTO) 0.6 /CMM (0.1-1.30); NEUTROPHILS # (AUTO) 10.1 /CMM (1.8-8.9); NEUTROPHILS % (AUTO) 87.4 % (43.0-81.0); PLATELET COUNT (AUTO) 167 /CMM (150-450); RED BLOOD CELL COUNT(AUTO) 2.46 MIL/uL (4.5-6.0); WHITE BLOOD COUNT (AUTO) 11.5 K/uL (4.3-11.0)
[2019-11-07] MEDS: VANCOMYCIN HCL 125 MG/2.5 ML ORAL.SUSP PO SCH ×3 (05:09→17:00)
[2019-11-07 05:15] LABS: ALBUMIN 1.6 g/dL (3.4-5.0); BILIRUBIN,TOTAL 0.4 mg/dL (0.2-1.0); CALCIUM, SERUM 7.1 mg/dL (8.5-10.1); CREATININE 3.5 mg/dL (0.6-1.3); PHOSPHORUS 2.7 mg/dL (2.5-4.9)
--- NOTE | 2019-11-07 05:40 | NUR ---
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
--- NOTE | 2019-11-07 07:15 | NUR ---
RN NOTE Received patient with trache to vent, tolerated settings, no respiratory distress noted at this time. On Versed @ 2mcg. NSR on the monitor at 80's. With GT intact, TF tolerated. Kept HOB elevated. Mccloud cath intact, noted with clear giovanna colored urine drained to BSD. With Rectal tube intact, noted with loose brown stool. On isolation prec for CDiff and MRSA in blood, maintained and observed. Patient is awake, does not track voice but able to follow some simple commands.
[2019-11-07] MEDS: MIDAZOLAM HCL 100 MG in IV NS 0.9% 80 ML IV PRN (08:30)
[2019-11-07] MEDS: FERROUS SULFATE UDC 300 MG/5 ML UDC GT SCH (08:32)
[2019-11-07] MEDS: cycloSPORINE SOLUTION 500 MG/5 ML UDC GT SCH ×2 (08:34→17:00)
[2019-11-07] MEDS: PROSOURCE / PROSTAT (PYXIS) 30 ML UDC GT SCH (08:36)
[2019-11-07] MEDS: LINEZOLID 600 MG TABLET PO SCH ×2 (08:36→20:08)
[2019-11-07] MEDS: TRAMADOL HCL 50 MG TABLET GT SCH ×2 (08:36→17:03)
[2019-11-07] MEDS: DAKINS QUARTER STRENGTH (0.125%) 480 ML BOTTLE TOP SCH (08:37)
[2019-11-07] MEDS: AMIODARONE HCL 200 MG TABLET PO SCH ×2 (08:37→17:03)
[2019-11-07] MEDS: LEVETIRACETAM SOL (5 ML) 100 MG/ML UDC GT SCH ×2 (08:37→20:08)
[2019-11-07] MEDS: ZINC SULFATE 220 MG CAPSULE GT SCH (08:37)
[2019-11-07] MEDS: DEXAMETHASONE SOD PHOSPHATE 10 MG/ML VIAL IV SCH (08:37)
[2019-11-07 08:55] LABS: ABG BASE EXCESS -3.5 mmol/L; ABG OXYGEN SATURATION 99.2 % (92.0-98.5); ABG PH 7.605 (7.350-7.450); ABG PO2 182.7 mmHg (75.0-100.0); COHb 0.3 % (0.5-1.5); MetHb 0.3 % (0.0-1.5); O2Hb 98.6 % (94.0-97.0); SITE, ABG Right Radial
--- NOTE | 2019-11-07 09:30 | NUR ---
RT PER DR MARTINEZ VENT SETTINGS CHANGED TO AC16, 500, 40% +5. Addendum: 11/07/19 at 1145 by ODELL SHAH RT Amended: Links added.
[2019-11-07] MEDS: POTASSIUM CHLORIDE 20 MEQ POWDER PACKET GT SCH ×4 (17:00→19:51)
[2019-11-07] MEDS: NEPRO 1,000 ML BOTTLE GT PRN (17:03)
[2019-11-07] MEDS: CEFEPIME 1 GM in IV D5W 50 ML IV SCH (19:52)
[2019-11-08] VITALS (31 sets, daily range): BP systolic 54–170; BP diastolic 13–135
[2019-11-08] MEDS: phenytoin SODIUM IV 300 MG in IV NS 0.9% 50 ML IV SCH (00:12)
--- NOTE | 2019-11-08 00:14 | NUR ---
TINSMITH HELPER NOTES - DILANTIN LEVEL DILANTIN LEVEL = 24.[address] BOYCE. PER DR BOYCE. HOLD THIS 0100 DOSE, REPEAT LEVEL THIS AM @ 0500. ORDER READ NBACK FOR CLARIFICATION. WILL HOLD 0100 DOSE, AND OBTAIN LEVEL @ 0500
[2019-11-08] MEDS: VANCOMYCIN HCL 125 MG/2.5 ML ORAL.SUSP PO SCH ×4 (00:24→18:04)
[2019-11-08] MEDS: AMIODARONE HCL 200 MG TABLET PO SCH ×3 (00:24→16:26)
[2019-11-08] MEDS: clonazePAM 0.5 MG TABLET GT SCH ×3 (04:13→21:59)
[2019-11-08 04:23] LABS: BASOPHILS # (AUTO) 0.1 /CMM (0.0-0.2); BASOPHILS % (AUTO) 0.5 % (0.0-2.0); EOSINOPHILS % (AUTO) 0.1 % (0.0-6.0); HEMATOCRIT 24 % (39-51); HEMOGLOBIN 7.6 g/dL (13.5-17.5); LYMPHOCYTES # (AUTO) 0.8 /CMM (0.8-4.8); LYMPHOCYTES % (AUTO) 6.2 % (20.0-44.0); MEAN CORPUSCULAR HGB CONC 32 g/dl (31.0-36.0); MEAN CORPUSCULAR VOLUME 95 fL (80-96); MONOCYTES # (AUTO) 1.4 /CMM (0.1-1.30); MONOCYTES % (AUTO) 10.4 % (2.0-12.0); NEUTROPHILS # (AUTO) 10.9 /CMM (1.8-8.9); NEUTROPHILS % (AUTO) 82.8 % (43.0-81.0); PLATELET COUNT (AUTO) 174 /CMM (150-450); RED BLOOD CELL COUNT(AUTO) 2.52 MIL/uL (4.5-6.0); WHITE BLOOD COUNT (AUTO) 13.1 K/uL (4.3-11.0)
[2019-11-08 04:47] LABS: CALCIUM, SERUM 7.7 mg/dL (8.5-10.1); CREATININE 4.2 mg/dL (0.6-1.3); MAGNESIUM 2.3 mg/dL (1.8-2.4); PHOSPHORUS 5.5 mg/dL (2.5-4.9); POTASSIUM 4.5 mmol/L (3.5-5.1)
[2019-11-08] MEDS: ACETAMINOPHEN 325 MG TABLET PO PRN (05:51)
[2019-11-08] MEDS: hydrALAZINE HCL IV 20 MG VIAL IV PRN (06:04)
[2019-11-08 06:05] LABS: ABG PCO2 27.9 mmHg (35.0-45.0); ABG PH 7.307 (7.350-7.450); ABG PO2 100.1 mmHg (75.0-100.0); MetHb 0.2 % (0.0-1.5); O2Hb 95.4 % (94.0-97.0); SITE, ABG Right Radial
--- NOTE | 2019-11-08 06:45 | NUR ---
SLICING MACHINE TENDER NOTES ABG RESULTS RELAYED TO DR BOYCE. NO NEW ORDERS RECEIVED AT THIS TIME
--- NOTE | 2019-11-08 07:20 | NUR ---
RN OPENING NOTES RECEIVED PATIENT IN BED AWAKE, OPENS EYES. HOB ELEVATED WITH TRACHE VENT AND TOLERATING SETTINGS. NO S/S OF REPARATORY DISTRESS. ON THE MONITOR NSR. GTUBE INTACT. BELLAMY CATH INTACT WITH YELLOW AND LITTLE SEDIMENT.NOTED RECTAL TUBE WITH LOOSE BROWN STOOL. PATIENT IS ON MRSA AND C-DIFF ISOLATION PRECAUTION.SAFETY MEASURES IN PLACE , BED LOCKED AND IN LOWEST POSITION, CALL LIGHT WITHIN EASY REACH. WILL CONTINUE TO MONITOR.
[2019-11-08 07:28] LABS: PHENYTOIN (DILANTIN) 24.7 ug/ml (10.0-20.0)
[2019-11-08] MEDS: LINEZOLID 600 MG TABLET PO SCH ×2 (08:13→21:59)
[2019-11-08] MEDS: ZINC SULFATE 220 MG CAPSULE GT SCH (08:13)
[2019-11-08] MEDS: GABAPENTIN 100 MG CAPSULE GT SCH (08:14)
[2019-11-08] MEDS: FERROUS SULFATE UDC 300 MG/5 ML UDC GT SCH (08:14)
[2019-11-08] MEDS: TRAMADOL HCL 50 MG TABLET GT SCH ×2 (08:15→16:26)
[2019-11-08] MEDS: DEXAMETHASONE SOD PHOSPHATE 10 MG/ML VIAL IV SCH (08:16)
[2019-11-08] MEDS: LEVETIRACETAM SOL (5 ML) 100 MG/ML UDC GT SCH ×2 (08:18→21:59)
[2019-11-08] MEDS: DAKINS QUARTER STRENGTH (0.125%) 480 ML BOTTLE TOP SCH (08:19)
[2019-11-08] MEDS: PROSOURCE / PROSTAT (PYXIS) 30 ML UDC GT SCH (08:21)
[2019-11-08] MEDS: cycloSPORINE SOLUTION 500 MG/5 ML UDC GT SCH ×2 (08:22→16:25)
--- NOTE | 2019-11-08 10:13 | NUR ---
RN NOTES PHENYTOIN LEVEL 24.7, PER PHARMACIST MD OSWALD PICKARD THE NEUROLOGIST IS AWARE. PER MD DO NOT HOLD MEDICATION.
[2019-11-08] MEDS: PHENYTOIN SUSP UDC 100 MG/4 ML UDC GT SCH ×2 (10:54→16:26)
[2019-11-08] MEDS ORDERED: phenytoin SODIUM IV 200 MG in IV NS 0.9% 50 ML IV SCH (13:00)
[2019-11-08] MEDS: NEPRO 1,000 ML BOTTLE GT PRN (13:08)
[2019-11-08 14:53] LABS: BILIRUBIN,DIRECT 0.2 mg/dL (0.0-0.2)
--- NOTE | 2019-11-08 18:55 | NUR ---
RN NOTES PT TRANSFERRED TO ROOM 325-1. PT AWAKE. NO RESPIRATORY DISTRESS NOTED. RR 30, 02 SAT 95%. HOB ELEVATED. NO SIGNS OF PAIN NOTED. IN STABLE CONDITION. SHANA PACHECO TOOK OVER PT'S CARE.
[2019-11-08] MEDS: CEFEPIME 1 GM in IV D5W 50 ML IV SCH (20:00)
--- NOTE | 2019-11-08 20:00 | NUR ---
ROCK WOOL APPLICATOR OPENING NOTE: Received report from morning nurse, Alpa. Patient is non verbal. On Mechanical Ventilator. Patient tolerating settings and in no signs of distress. Patient on monitoring, sinus rhythmn. Gtube in place, patent, flushes well. Noted Right upper arm PICC. Patient, no infiltration, no redness. Left femoral HD cath noted. Dressing in tact and dry. Safety precaution in place, bed in lowest position, bed is locked, alarm is on, side rails x2 are up, and call light is within reach. Will continue to monitor.
[2019-11-08] MEDS ORDERED: CEFEPIME 1 GM VIAL ONE (22:26)
[2019-11-09] VITALS (11 sets, daily range): BP systolic 0–175; BP diastolic 0–98
--- NOTE | 2019-11-09 00:20 | NUR ---
SAS ETL DEVELOPER NOTE: Patient lactic acid 5.7. Made epic aware, Claudio. No new orders at this time.
--- NOTE | 2019-11-09 00:58 | NUR ---
REGIONAL BRANCH MANAGER NOTE: Non administered Vancocin Hcl. Patient came from . I called ICU to see if they had the medication. They did not have the medication. I checked both medication lockers. I checked the refrigerator and the medication is not socked. I made reliability technologist aware. I sent a request to the dry cell assembly supervisor but she did not have it stocked. I called Pharmacy but they said they do not stock medications at night. Will endorse to morning shift.
[2019-11-09] MEDS: PHENYTOIN SUSP UDC 100 MG/4 ML UDC GT SCH ×3 (01:57→16:52)
[2019-11-09] MEDS: AMIODARONE HCL 200 MG TABLET PO SCH ×3 (01:57→16:49)
[2019-11-09] MEDS: VANCOMYCIN HCL 125 MG/2.5 ML ORAL.SUSP PO SCH ×4 (05:35→17:22)
[2019-11-09] MEDS: clonazePAM 0.5 MG TABLET GT SCH ×2 (05:35→14:08)
--- NOTE | 2019-11-09 06:34 | NUR ---
FAST FOOD SHIFT SUPERVISOR CLOSING NOTE: Patient in bed sleeping comfortably. Patient shows no signs of discomfort or pain. On Mechanical Ventilator. Patient tolerating settings and in no signs of distress. Monitoring shows sinus rhythmn. Right upper arm PICC is patient; no infiltration, no redness. Safety precaution in place, bed in lowest position, bed is locked, alarm is on, side rails x2 are up, and call light is within reach. Will endorse to next shift.
--- NOTE | 2019-11-09 07:46 | NUR ---
Tele/RN - Assessment Patient is obtunded, remain afebrile, no s/s of pain, no seizure activity, on mechanical vent, tolerating settings AC 16 TV 500 FiO2 40% PEEP 5, tele shows SR. GTF Nepro @ 45 ml/hr, tolerating it well, no residual seen. EMORY PICC line with no complications. Flexi-seal and Mccloud catheter in place. Will do wound care as order as ordered. Morning labs drawn with pending result. Aspiration, seizure and contact precautions maintained. Will continue with current plan of care.
[2019-11-09] MEDS: FERROUS SULFATE UDC 300 MG/5 ML UDC GT SCH (08:12)
[2019-11-09] MEDS: DEXAMETHASONE SOD PHOSPHATE 10 MG/ML VIAL IV SCH (08:12)
[2019-11-09] MEDS: TRAMADOL HCL 50 MG TABLET GT SCH ×2 (08:12→16:50)
[2019-11-09 08:13] LABS: BASOPHILS % (AUTO) 0.2 % (0.0-2.0); EOSINOPHILS % (AUTO) 0.1 % (0.0-6.0); HEMATOCRIT 26 % (39-51); LYMPHOCYTES # (AUTO) 0.6 /CMM (0.8-4.8); LYMPHOCYTES % (AUTO) 3.8 % (20.0-44.0); MEAN CORPUSCULAR HGB CONC 31 g/dl (31.0-36.0); MEAN CORPUSCULAR VOLUME 97 fL (80-96); MONOCYTES # (AUTO) 1.6 /CMM (0.1-1.30); MONOCYTES % (AUTO) 10.7 % (2.0-12.0); NEUTROPHILS # (AUTO) 12.4 /CMM (1.8-8.9); NEUTROPHILS % (AUTO) 85.2 % (43.0-81.0); PLATELET COUNT (AUTO) 141 /CMM (150-450); RED BLOOD CELL COUNT(AUTO) 2.64 MIL/uL (4.5-6.0); WHITE BLOOD COUNT (AUTO) 14.6 K/uL (4.3-11.0)
[2019-11-09] MEDS: ZINC SULFATE 220 MG CAPSULE GT SCH (08:13)
[2019-11-09] MEDS: LEVETIRACETAM SOL (5 ML) 100 MG/ML UDC GT SCH (08:13)
[2019-11-09] MEDS: cycloSPORINE SOLUTION 500 MG/5 ML UDC GT SCH ×2 (08:13→17:20)
[2019-11-09] MEDS: PROSOURCE / PROSTAT (PYXIS) 30 ML UDC GT SCH (08:13)
[2019-11-09] MEDS: LINEZOLID 600 MG TABLET PO SCH (08:13)
[2019-11-09 08:17] LABS: CALCIUM, SERUM 7.3 mg/dL (8.5-10.1); CREATININE 4.2 mg/dL (0.6-1.3); MAGNESIUM 2.2 mg/dL (1.8-2.4); PHOSPHORUS 5.7 mg/dL (2.5-4.9); POTASSIUM 4.6 mmol/L (3.5-5.1)
[2019-11-09] MEDS: DAKINS QUARTER STRENGTH (0.125%) 480 ML BOTTLE TOP SCH (08:27)
[2019-11-09 08:40] LABS: ABG BASE EXCESS -7.3 mmol/L; ABG OXYGEN SATURATION 97.9 % (92.0-98.5); ABG PCO2 27.4 mmHg (35.0-45.0); ABG PH 7.399 (7.350-7.450); AaDO2 141.7 mmHg; COHb 0.3 % (0.5-1.5); MetHb 0.2 % (0.0-1.5); O2Hb 97.4 % (94.0-97.0); SITE, ABG Right Radial; VENT MODE, BG AC 16 500 +5 40%
[2019-11-09] MEDS ORDERED: MIDAZOLAM HCL 5MG/ML VIAL 25 MG/5 ML VIAL IV ONE (12:30)
[2019-11-09] MEDS ORDERED: FENTANYL PF 250MCG/5ML AMPUL IV ONE (12:30)
[2019-11-09] MEDS ORDERED: NALOXONE PREFILLED SYRINGE 2 MG/2 ML SYRINGE IV ONE (12:30)
--- NOTE | 2019-11-09 12:45 | NUR ---
Tele/RN - Notes Patient in no acute distress, was taken to CT for biopsy of the left kidney transplant.
--- NOTE | 2019-11-09 13:55 | NUR ---
Tele/RN - Notes Patient came back to the unit. Per endorsement, unable to proceed with kidney biopsy due to hydroureteronephrosis of the transplant kidney and malpositioned Mccloud catheter. The findings were discussed with Dr. Amrit Diane at the time of the exam and it was decided not to proceed with the biopsy.
--- NOTE | 2019-11-09 14:00 | NUR ---
Tele/RN - Notes Mccloud catheter was removed per endorsement and tried to reinsert but unsuccessful.
--- NOTE | 2019-11-09 14:45 | NUR ---
Tele/RN - Notes Dr. Wallace made aware of CT findings and urologist needs to be consulted per radiologist recommendation.
--- NOTE | 2019-11-09 15:30 | NUR ---
Tele/RN - Notes Bladder scan done, noted with 396 ml, attempted to do straight cath but unsuccessful. Charge nurse made aware and will ask Dr. Thurman to insert a coude catheter.
[2019-11-09] MEDS ORDERED: IV NS 0.9% 1,000 ML IV ONE (16:30)
--- NOTE | 2019-11-09 17:00 | NUR ---
Tele/RN - Notes Patient noted with BP 81/48, Dr. Wallace with order to give NS 250 ml bolus, noted with improvement, post fluid resuscitation BP 90/46.
--- NOTE | 2019-11-09 17:15 | NUR ---
Tele/RN - Notes Dr. Thurman at bedside for coude catheter insertion but was not successful. Patient also noted with seizure activity. Dr. Mccormack with order to do EEG. Seizure precautions maintained. Dilantin was administered as ordered.
--- NOTE | 2019-11-09 17:30 | NUR ---
Tele/RN - Notes Dr. Wallace made aware of latest BP 67/51, HR mid 30s, seizure episode, unsuccessful coude catheter insertion with order to transfer patient to ICU.
--- NOTE | 2019-11-09 17:40 | NUR ---
Tele/RN - Transfer Notes Patient hemodynamically unstable, had episode of seizure, HR mid 30-50s, transferred to [facility] via ACLS protocol. Endorsed accordingly.
--- NOTE | 2019-11-09 18:00 | NUR ---
DIRECTOR OF STRATEGIC MARKETING NOTES RECIEVED PATIENT FROM 3W. PT IS ON MECH VENT, TOLERATING SETTING SWELL, NO SOB. PT CONNECTED TO BEDSIDE MONITOR. GTUBE IS CLAMPED. BED RAILS UP, SEZIURE PRECAUTIONS IMPLEMENTED. WILL CONTINUE TO MONITOR FOR ANY CHANGES.
--- NOTE | 2019-11-09 18:50 | NUR ---
RN NOTES PT IS S/P CARDIAC ARREST. HE IS NOW ON 1 MCG/MIN/MIN TO MAINTAIN BP. SPOKE WITH EMI HINTON, RECEIVED ORDER FOR 1L NS BOLUS, 0.5 MG IV ATROPINE, AND NORSYNEPHRINE DRIP. WILL IMPLEMENT ORDERED.
[2019-11-09] MEDS ORDERED: PHENYLEPHRINE 100 MG in IV NS 0.9% 240 ML IV PRN (19:00)
[2019-11-09] MEDS ORDERED: NOREPINEPHRINE 8 MG in IV NS 0.9% 242 ML IV PRN (19:00)
[2019-11-09] MEDS ORDERED: ATROPINE SULFATE 1 MG/10 ML DISP.SYRIN IV ONE (19:00)
[2019-11-09] MEDS ORDERED: IV NS 0.9% 1,000 ML IV PRN (19:00)
--- NOTE | 2019-11-09 19:15 | NUR ---
MANAGER MERCHANDISING CLOSING NOTES PATIENT IS RESTING IN BED, VITAL SIGNS ARE NOT STABLE. SPOKE WITH EMI HINTON REGARDING PREVIOUS CARDIAC ARREST AT 1800. SAFETY MEASURES HAVE BEEN IMPLEMENTED, CALL LIGHT IS WITHIN REACH, BED IS IN LOWEST AND LOCKED POSITION, SIDE RIALS UP X2, PT HAS BEEN ENDORSED TO NIGHTSHIFT RN FOR LEVI.
[2019-11-09] MEDS ORDERED: VASOPRESSIN INJ 40 UNIT in IV NS 0.9% 38 ML IV PRN (19:30)
--- NOTE | 2019-11-09 19:30 | NUR ---
ACCOUNT MANAGEMENT ASSISTANT. MD CAMARGO CALLED UPDATE GIVEN.
--- NOTE | 2019-11-09 19:35 | NUR ---
MASH FILTER PRESS OPERATORRN. IZQUIERDO CALLED UPDATE GIVEN.
[2019-11-09 19:37] LABS: HEMATOCRIT 22 % (39-51); LYMPHOCYTES # (AUTO) 0.2 /CMM (0.8-4.8); MONOCYTES # (AUTO) 0.3 /CMM (0.1-1.30); MONOCYTES % (AUTO) 5.2 % (2.0-12.0); PLATELET COUNT (AUTO) 98 /CMM (150-450)
--- NOTE | 2019-11-09 19:45 | NUR ---
ELECTRICAL REPAIRER.APPLICATIONS PROGRAMMER ANALYST SHOWING ASYSTOLE, ACTIVATED CODE BLUE AT 1946. SEE THE CODE BLUE SHEET. [place] SPOKE WITH PT BROTHER . PT AT 2005.NOTIFIED [facility]. SPOKE PERSON DAVIS #[id number]. POST MORTEM CARE GIVEN. BODY SEND TO [facility]
[2019-11-09 19:54] LABS: BASOPHILS % (AUTO) 0.1 % (0.0-2.0); EOSINOPHILS % (AUTO) 0.1 % (0.0-6.0); LYMPHOCYTES % (AUTO) 4.1 % (20.0-44.0); MEAN CORPUSCULAR HGB CONC 27 g/dl (31.0-36.0); MEAN CORPUSCULAR VOLUME 113 fL (80-96); NEUTROPHILS # (AUTO) 5.3 /CMM (1.8-8.9); NEUTROPHILS % (AUTO) 90.5 % (43.0-81.0); WHITE BLOOD COUNT (AUTO) 5.9 K/uL (4.3-11.0)
[2019-11-09 19:55] LABS: HEMOGLOBIN 5.8 g/dL (13.5-17.5)
[2019-11-09] MEDS ORDERED: AMIODARONE 150 MG/3 ML VIAL IV ONE ×2 (20:00→20:47)
[2019-11-09] MEDS ORDERED: EPINEPHRINE (1:10,000) SYRINGE 1 MG/10 ML DISP.SYRIN ONE (20:00)
[2019-11-09] MEDS ORDERED: ATROPINE SULFATE 1 MG/10 ML DISP.SYRIN ONE (20:00)
[2019-11-09] MEDS ORDERED: SODIUM BICARBONATE SYR 50 MEQ/50 ML DISP.SYRIN ONE (20:00)
[2019-11-09] MEDS ORDERED: DEXTROSE 50%-WATER 50 ML DISP.SYRIN ONE (20:00)
--- NOTE | 2019-11-09 20:00 | NUR ---
OTR OWNER OPERATOR. PERLA , LEVO, AND DOPAMINE WAS MAX OUT.
--- NOTE | 2019-11-09 20:00 | NUR ---
CARBURIZING FURNACE OPERATOR. PERLA STARTED.WAS MAX OUT, DURING CODE DOPAMINE STARTED.
[2019-11-09 20:14] LABS: BILIRUBIN,TOTAL 0.5 mg/dL (0.2-1.0); CALCIUM, SERUM 6.9 mg/dL (8.5-10.1); MAGNESIUM 2.2 mg/dL (1.8-2.4); TOTAL PROTEIN, SERUM 3.7 g/dL (6.4-8.2)
[2019-11-09 20:24] LABS: ALBUMIN 1.1 g/dL (3.4-5.0); PHOSPHORUS 10.7 mg/dL (2.5-4.9); POTASSIUM 7.2 mmol/L (3.5-5.1)
[2019-11-09] MEDS ORDERED: SODIUM BICARBONATE SYR 50 MEQ/50 ML DISP.SYRIN IV ONE (20:47)
[2019-11-09] MEDS ORDERED: EPINEPHRINE (1:10,000) SYRINGE 1 MG/10 ML DISP.SYRIN IVP ONE (20:47)
[2019-11-09] MEDS ORDERED: DOPamine 400 MG/D5W 250 ML RTU BAG IV ONE (20:47)
[2019-11-09] MEDS ORDERED: DEXTROSE 50%-WATER 50 ML DISP.SYRIN IV ONE (20:47)
[2019-11-09] MEDS ORDERED: FEE EMEERGENCY 1 MIN EA MC ONE (20:47)
[2019-11-09] MEDS ORDERED: CALCIUM CHLORIDE 1,000 MG/10 ML DISP.SYRIN IV ONE (20:47)
--- NOTE | 2019-11-09 21:13 | NUR ---
@194 PT CODED. STARTED CPR. RN AT BEDSIDE, AT BEDSIDE RUNNING THE CODE. @2005 PT NO PULSE, CALLED IT OFF. VENT TURNED OFF.
--- NOTE | 2019-11-09 22:00 | NUR ---
FAMILY DINNER SERVICE SPECIALIST. RECEIVED THE PT REPORT FROM LUCRECIA SALDANA .PT WAS VERY UNSTABLE. HEART RATE WAS 35. NO BLOOD PRESSURE . LEVOPHED 1MCG/KG/MIN. TRACH TO VENT CONNECTED. TRACH PORTEX #8,SETTINGS AC 16,TV 500,FIO2 100%,PEEP 5. SAT 90. AFEBRILE. IV RT UPPER ARM PICC LINE, LT FEMORAL HD CATH, GT INTACT. WILL CONTINUE TO MONITOR. Addendum: 11/10/19 at 0207 by BIANCA SIDDIQI RN CORRECTION: RECEIVED THE PT REPORT ON 11/09/2019 AT 1915.
[2019-11-09 22:48] LABS: BAND % (MANUAL) 5 % (0.0-5.0); LYMPHOCYTES % (MANUAL) 4 % (16-48); MONOCYTES % (MANUAL) 7 % (0-11.0); NEUTROPHILS % (MANUAL) 84 (42-76)
== END 2019-11-09 20:06 | disposition expired | DRG 720 ==
LOC: ER 23:30 → TELE-TD 10-25 02:49 → TELE1 10-26 20:48 → ICU 10-30 14:38 → TELE 11-08 19:06 → ICU 11-09 17:54
PROVIDERS: ADMIT Nurse Practitioner Acute Care; ATTEND Nurse Practitioner Acute Care
PROC: 5A1955Z Respiratory Ventilation, Greater than 96 Consecutive Hours (ICD-10-PCS; principal; 2019-10-25)
PROC: 06HY33Z Insertion of Infusion Device into Lower Vein, Percutaneous Approach (ICD-10-PCS; principal; 2019-10-25)
PROC: 30233N1 Transfusion of Nonautologous Red Blood Cells into Peripheral Vein, Percutaneous Approach (ICD-10-PCS; principal; 2019-10-25)
PROC: 0DJ08ZZ Inspection of Upper Intestinal Tract, Via Natural or Artificial Opening Endoscopic (ICD-10-PCS; 2019-10-27)
PROC: 5A1D70Z Performance of Urinary Filtration, Intermittent, Less than 6 Hours Per Day (ICD-10-PCS; 2019-10-28)
PROC: B548ZZA Ultrasonography of Superior Vena Cava, Guidance (ICD-10-PCS; 2019-10-30)
PROC: 02HV33Z Insertion of Infusion Device into Superior Vena Cava, Percutaneous Approach (ICD-10-PCS; 2019-10-30)
PROC: 5A12012 Performance of Cardiac Output, Single, Manual (ICD-10-PCS; 2019-10-30)
PROC: 06HY33Z Insertion of Infusion Device into Lower Vein, Percutaneous Approach (ICD-10-PCS; 2019-11-06)
PROC: 5A12012 Performance of Cardiac Output, Single, Manual (ICD-10-PCS; 2019-11-09)
DX: A41.02 Sepsis due to Methicillin resistant Staphylococcus aureus (principal); G93.1 Anoxic brain damage, not elsewhere classified; E87.1 Hypo-osmolality and hyponatremia; N39.0 Urinary tract infection, site not specified; Z93.0 Tracheostomy status; Z99.11 Dependence on respirator [ventilator] status; Z86.74 Personal history of sudden cardiac arrest; Z93.1 Gastrostomy status; Z86.711 Personal history of pulmonary embolism; J96.20 Acute and chronic respiratory failure, unspecified whether with hypoxia or hypercapnia; E43 Unspecified severe protein-calorie malnutrition; A04.72 Enterocolitis due to Clostridium difficile, not specified as recurrent; D68.69 Other thrombophilia; I48.91 Unspecified atrial fibrillation; D63.8 Anemia in other chronic diseases classified elsewhere; E87.2 Acidosis; I21.4 Non-ST elevation (NSTEMI) myocardial infarction; I46.2 Cardiac arrest due to underlying cardiac condition; I49.01 Ventricular fibrillation; R65.20 Severe sepsis without septic shock; N31.9 Neuromuscular dysfunction of bladder, unspecified; R13.10 Dysphagia, unspecified; Z79.01 Long term (current) use of anticoagulants; Z87.442 Personal history of urinary calculi; K29.70 Gastritis, unspecified, without bleeding; R31.9 Hematuria, unspecified; T86.12 Kidney transplant failure; N17.0 Acute kidney failure with tubular necrosis; E86.9 Volume depletion, unspecified; J18.9 Pneumonia, unspecified organism; E88.09 Other disorders of plasma-protein metabolism, not elsewhere classified; Z68.1 Body mass index [BMI] 19.9 or less, adult; S31.000A Unspecified open wound of lower back and pelvis without penetration into retroperitoneum, initial encounter; Y84.8 Other medical procedures as the cause of abnormal reaction of the patient, or of later complication, without mention of misadventure at the time of the procedure; X58.XXXA Exposure to other specified factors, initial encounter; Y93.9 Activity, unspecified; N13.6 Pyonephrosis; R74.0 Nonspecific elevation of levels of transaminase and lactic acid dehydrogenase [LDH]; G40.901 Epilepsy, unspecified, not intractable, with status epilepticus; I47.2 Ventricular tachycardia; I12.9 Hypertensive chronic kidney disease with stage 1 through stage 4 chronic kidney disease, or unspecified chronic kidney disease; J44.0 Chronic obstructive pulmonary disease with (acute) lower respiratory infection; Y83.0 Surgical operation with transplant of whole organ as the cause of abnormal reaction of the patient, or of later complication, without mention of misadventure at the time of the procedure; N18.9 Chronic kidney disease, unspecified; Y92.129 Unspecified place in nursing home as the place of occurrence of the external cause; Z79.899 Other long term (current) drug therapy; T86.11 Kidney transplant rejection
CPT/HCPCS: 31720; 36415; 36600; 71045-TC; 76700-TC; 76770-TC; 76856-TC; 77012-TC; 80048-TC; 80053-TC; 80061-TC; 80076-TC; 80158; 80170-TC; 80177; 80185-TC; 80202-TC; 81000-TC; 82248-TC; 82272-TC; 82550-TC; 82728-TC; 82803-TC; 82962-TC; 83021; 83605-TC; 83615-TC; 83735-TC; 83880; 83970; 84100-TC; 84155; 84165; 84443-TC; 84484-TC; 84550-TC; 85025-TC; 85027-TC; 85610-TC; 85660; 85730-TC; 86140-TC; 86706; 86850-TC; 86921-TC; 87040-TC; 87070-TC; 87086-TC; 87186-TC; 87340; 90935-TC; 92950-TC; 93307-TC; 93308-TC; 94002-TC; 94003-TC; 94760-TC; 94799-TC; 95819-TC; 99082-TC; A4216; A4623; A6253; A6403; A7526; C1751; G0378; J0171; J0282; J0360; J0461; J0692; J1100; J1165; J1265; J1580; J1953; J2060; J2185; J2250; J2310; J2370; J2543; J2597; J3010; J3370; J3475; J3480; J3490; J7030; J7040; J7042; J7050; J7060; J7502; J7510; P9016-BL; U0003-CS